=== PATIENT | female | born 1945 | race Caucasian/White ===

== ENCOUNTER 2022-11-09 09:00 | Outpatient (NON) | payer MEDICARE, SELFPAY | END 2022-11-09 09:01 | disposition home or self-care (01) | PROVIDERS: PCP Family Medicine; Visit Provider Internal Medicine Gastroenterology | DX: K21.9 Gastro-esophageal reflux disease without esophagitis (principal) | CPT/HCPCS: 88305 ==

== ENCOUNTER 2022-11-09 10:46 | Day surgery (SDC) | payer MEDICARE, SELFPAY ==
[2022-10-19 07:57] VITALS: BMI 28.0
[2022-10-19 13:02] VITALS: BMI 28.0
--- NOTE | 2022-11-06 16:25 | PM.HPGS ---
History of Present Illness History of Present Illness Consent: Risks, benefits, and alternatives have been discussed and questions answered. Patient agrees to proceed with procedure. Chief complaint: Dysphagia and Gerd Narrative: Mariana Gutiérrez is a 77 year old female With a history of mid-esophagea diverticulum, constipation, irritable bowel syndrome and sleep apnea.? She states she will have intermittent dysphagia mid chest this comes When she has solids.? She had an episode few weeks ago in which it lasted 1 hour and was very painful and till the food eventually moved.? This will happen 3-4 times throughout the month. her primary symptom however is that she belches constantly. She states that almost everything she eats causes indigestion meaning sour stomach and belching. She does have a CPAP machine.? She does report uncontrolled heartburn despite being on pantoprazole once per day and Pepcid twice per day along with frequent belching-previously on omeprazole with no control of GERD.? She denies any nausea, vomiting, hematemesis.? She has chronic constipation and takes Senokot laxatives daily to facilitate a bowel movement.?? Review of Systems Review of Systems: All systems reviewed & are unremarkable except as noted in HPI and below PMFSH Past Medical History Medical History Chronic constipation Colon cancer screening Dysphagia GERD (gastroesophageal reflux disease) History of hemorrhoids HLD (hyperlipidemia) Hypertension Melanosis coli Sleep apnea Social History Social History Smoking status: Never smoker Alcohol intake: never Substance use: never Substance use type: does not use Living arrangements: with family Spiritual care concerns: No Meds Home Medications and Allergies Home Medications Medication Instructions Recorded Confirmed Type benazepril 20 mg tablet 20 mg PO DAILY #90 tabs 04/04/19 11/09/22 Rx ascorbate calcium (vitamin C) 500 500 mg PO DAILY 10/15/22 11/09/22 History mg tablet aspirin 81 mg tablet,delayed 81 mg PO DAILY 10/15/22 11/09/22 History release (Adult Aspirin Regimen) atorvastatin 40 mg tablet 40 mg PO DAILY 10/15/22 11/09/22 History cetirizine 10 mg disintegrating 10 mg PO DAILY 10/15/22 11/09/22 History tablet (Children's Zyrtec Allergy) dexlansoprazole 60 mg 60 mg PO DAILY #30 caps 10/15/22 11/09/22 Rx capsule,biphase delayed release (Dexilant) fluticasone propionate 50 1 spray intranasal DAILY 10/15/22 11/09/22 History mcg/actuation nasal spray,suspension (Allergy Relief (fluticasone)) gabapentin 300 mg capsule 300 mg PO BID 10/15/22 11/09/22 History acetaminophen 650 mg 650 mg PO Q8H PRN Mild Pain (Scale 10/19/22 11/09/22 History tablet,extended release Score 1-4) diltiazem HCl 240 mg 240 mg PO DAILY 10/19/22 11/09/22 History capsule,extended release 24 hr hydrochlorothiazide 25 mg tablet 25 mg PO DAILY 10/19/22 11/09/22 History montelukast 10 mg tablet 10 mg PO PRN PRN Allergy Symptoms 10/19/22 11/09/22 History Allergies Allergy/AdvReac Type Severity Reaction Status Date / Time adhesive tape Allergy Unknown Blister Verified 11/09/22 11:32 ketorolac Allergy Unknown Rash Verified 11/09/22 11:32 Exam Const: General: alert Orientation/consciousness: patient oriented x3 Resp: Auscultation: clear to auscultation bilaterally Cardio: Rhythm: regular rhythm GI: GI Palp: Yes Soft to palpation and No Tenderness to palpation present (GI) Neuro: General: patient oriented x3 Assessment and Plan Assessment and plan (1) Dysphagia: Qualifiers: Dysphagia type: esophageal phase Qualified Code(s): R13.19 - Other dysphagia Code(s): R13.10 - Dysphagia, unspecified Status: Acute Assessment and Plan: EGD with possible biopsy or dilatation or cautery.
--- NOTE | 2022-11-09 10:54 | P.PNAN_ITS ---
Anes - Initial Pre Proc Eval Procedure: Operation Date: 11/09/22 12:30 Proposed Procedures p Esophagogastroduodenoscopy - Param Diaz MD Date/Time: 11/09/22 10:54 Surgeon: Param Diaz MD Pre Op Diagnosis: Dysphagia and Gerd Patient Data Age: 77 Gender: F Height: 1.57 m Weight: 69.4 kg Allergies Allergy/AdvReac Type Severity Reaction Status Date / Time adhesive tape Allergy Unknown Blister Verified 11/09/22 11:32 ketorolac Allergy Unknown Rash Verified 11/09/22 11:32 Home Medications Medication Instructions Recorded Confirmed Type benazepril 20 mg tablet 20 mg PO DAILY #90 tabs 04/04/19 11/09/22 Rx ascorbate calcium (vitamin C) 500 500 mg PO DAILY 10/15/22 11/09/22 History mg tablet aspirin 81 mg tablet,delayed 81 mg PO DAILY 10/15/22 11/09/22 History release (Adult Aspirin Regimen) atorvastatin 40 mg tablet 40 mg PO DAILY 10/15/22 11/09/22 History cetirizine 10 mg disintegrating 10 mg PO DAILY 10/15/22 11/09/22 History tablet (Children's Zyrtec Allergy) dexlansoprazole 60 mg 60 mg PO DAILY #30 caps 10/15/22 11/09/22 Rx capsule,biphase delayed release (Dexilant) fluticasone propionate 50 1 spray intranasal DAILY 10/15/22 11/09/22 History mcg/actuation nasal spray,suspension (Allergy Relief (fluticasone)) gabapentin 300 mg capsule 300 mg PO BID 10/15/22 11/09/22 History acetaminophen 650 mg 650 mg PO Q8H PRN Mild Pain (Scale 10/19/22 11/09/22 History tablet,extended release Score 1-4) diltiazem HCl 240 mg 240 mg PO DAILY 10/19/22 11/09/22 History capsule,extended release 24 hr hydrochlorothiazide 25 mg tablet 25 mg PO DAILY 10/19/22 11/09/22 History montelukast 10 mg tablet 10 mg PO PRN PRN Allergy Symptoms 10/19/22 11/09/22 History Patient hx anesthesia problems: none Family hx anesthesia problems: none Results Review: All pre-operative results and documents have been reviewed as part of the pre- operative evaluation. PMFSH Past Medical History Medical History Chronic constipation Colon cancer screening Dysphagia GERD (gastroesophageal reflux disease) History of hemorrhoids HLD (hyperlipidemia) Hypertension Melanosis coli Sleep apnea Social History Social History Smoking status: Never smoker Alcohol intake: never Substance use: never Substance use type: does not use Living arrangements: with family Spiritual care concerns: No Anes - Eval Final PreProcedure Day of Procedure 11/09/22 10:54 Patient weight: overweight Heart: regular rate and rhythm Lungs: clear to auscultation and normal air movement Airway: Mallampati scale class II Neurological: alert and oriented Last oral intake: >/= 8 hours ASA classification: II Emergent: no Anesthetic plan: proceed Anesthesia type and monitoring: general GIVS Results Review: All pre-operative results and documents have been reviewed as part of the pre- operative evaluation. Informed Consent: The patient's anesthetic plan and its attendant risks and benefits were discussed with the patient/family/POA. Questions were solicited and answers provided to the satisfaction of the patient/family/POA.
[2022-11-09 11:31] VITALS: BP 151/86; PULSE 70; RESP 18; TEMP 36.8; O2SAT 100
[2022-11-09] MEDS: LACTATED RINGERS 1,000 ML 150 ML IV CONT (11:46)
[2022-11-09 12:55] VITALS: BP 112/70; PULSE 81; RESP 16; O2SAT 96
[2022-11-09 13:05] VITALS: BP 118/70; PULSE 77; RESP 20; O2SAT 98
[2022-11-09 13:15] VITALS: BP 134/82; PULSE 75; RESP 20; O2SAT 98
--- NOTE | 2022-11-09 14:46 | WPDANESPN ---
Anes - Prog Note Post-Op Date/Time: 11/09/22 14:46 Cardiovascular status: normal Respiratory status: normal Airway patency: baseline Mental status: baseline Post-Op hydration status: normal Vital Signs: Last Vital Signs Temp 36.8 C 11/09/22 11:31 Pulse 75 11/09/22 13:15 Resp 20 11/09/22 13:15 BP 134/82 11/09/22 13:15 Pulse Ox 98 11/09/22 13:15 O2 Del Method Room Air 11/09/22 13:15 Pain Score (VAS): 0 I/O: Intake & Output 11/08/22 11/09/22 11/09/22 23:59 07:59 15:59 Intake Total 600 Balance 600 Post-procedural complaints: none Patient Feedback: Patient satisfied with anesthetic care.
== END 2022-11-09 13:35 | disposition home or self-care (01) ==
PROVIDERS: PCP Family Medicine; Visit Provider Internal Medicine Gastroenterology
PROC: 0DJ08ZZ Inspection of Upper Intestinal Tract, Via Natural or Artificial Opening Endoscopic (ICD-10-PCS; CPT 43235; principal; 2022-11-09 12:30)
DX: K21.9 Gastro-esophageal reflux disease without esophagitis (principal)
CPT/HCPCS: 43239

== ENCOUNTER 2023-09-30 14:40 | Outpatient (CLI) | payer MEDICARE, SELFPAY ==
--- NOTE | ~2023-09-30 | XR_ITS ---
EXAMINATION: XR lumbar spine 2-3V, XR sacrum coccyx min 2V DATE: 09/30/2023 15:12 INDICATION: Low back pain TECHNIQUE: Line 1. Anteroposterior and lateral views of the lumbar spine, and cone-down lateral view of the lumbosacr al junction were obtained. 2. AP, cephalad angled AP and lateral views of the sacrum and coccyx were obtained. COMPARISON: Lumbar spine radiographs dated 07/08/2016 FINDINGS: Alignment is normal. Vertebral body heights are normal. Combined instrumented L3-L5 anterior and post erior spinal fusion with interbody bone graft cages at both levels and bilateral vertical kary and ped icle screw fixation. Moderate to severe disc height loss with vacuum phenomena at L5-S1. Mild disc he ight loss at L2-L3. Moderate disc height loss at T10-T11 and T11-T12 cholecystectomy clips in the rig ht upper quadrant. Sacrum and coccyx: Sacral arches are intact. No fractures identified. Mild bilateral hip and sacroiliac osteoarthritis. No erosions to suggest inflammatory sacroiliitis. IMPRESSION: 1. Combined instrumented L3-L5 anterior and posterior spinal fusion. 2. Moderate to severe lower thoracic and lumbosacral spondylosis with mild spondylosis of the interve hui upper lumbar spine. 3. Mild bilateral hip and sacroiliac osteoarthritis. Reviewed, dictated and finalized at location A. IMPRESSION: 1. Combined instrumented L3-L5 anterior and posterior spinal fusion. 2. Moderate to severe lower thoracic and lumbosacral spondylosis with mild spon dylosis of the intervening upper lumbar spine. 3. Mild bilateral hip and sacroiliac osteoarthritis.
== END 2023-09-30 14:41 ==
DX: M16.0 Bilateral primary osteoarthritis of hip (principal); M53.3 Sacrococcygeal disorders, not elsewhere classified; M47.894 Other spondylosis, thoracic region; M47.896 Other spondylosis, lumbar region
CPT/HCPCS: 72100; 72220

== ENCOUNTER 2023-10-19 09:25 | Outpatient (CLI) | payer MEDICARE, SELFPAY ==
--- NOTE | ~2023-10-19 | CT_ITS ---
CT lumbar spine wo con Ordering provider: Félix Ma History: 78 years Female with . Sacral Spondlyosis . Comparison: None. Technique: CT lumbar spine without contrast. Radiation reduction technique utilized. FINDINGS: VERTEBRAE: Normal height and alignment. No subluxation or visible acute fracture. Postoperative estevez es seen at L3, L4 and L5 with hardware and status post laminectomy.. DISC SPACES: Degenerative disc disease at the level of L5-S1. Facet joint disease seen at the same le juan. Disc spaces are seen at the levels of L3-L4, L4-L5. T12-L1: No stenosis. L1-L2: No stenosis. Mild diffuse disc bulge. L2-L3: No stenosis. diffuse disc bulge. Bilateral narrowing of the foramina with root compression. L3-L4: Artifacts cannot be properly evaluated. L4-L5: artifacts cannot be appropriately evaluated. L5-S1: No stenosis. Diffuse disc bulge with bilateral narrowing of the foramina. Right nerve root co mpression. PARASPINOUS SOFT TISSUES: Mild atheromatous disease of the abdominal aorta. Bilateral sacroiliitis. IMPRESSION: Multilevel degenerative disc disease. Postoperative changes at the levels L3, L4 and L5. Reviewed, dictated and finalized at location A.
== END 2023-10-19 09:26 | disposition home or self-care (01) ==
DX: M47.815 Spondylosis without myelopathy or radiculopathy, thoracolumbar region (principal); M51.36 Other intervertebral disc degeneration, lumbar region
CPT/HCPCS: 72131

== ENCOUNTER 2024-02-29 09:42 | Outpatient (CLI) | payer MEDICARE, SELFPAY ==
--- NOTE | ~2024-02-29 | XR_ITS ---
XR hip LT min 2V Ordering provider: Marta Vanessa MD History: . M25.551 - Pain in right hip, BILATERAL HIP, NO INJURY . Comparison: None. FINDINGS: BONES: No acute fracture or dislocation. HIP JOINT SPACES: Narrowing of the left hip joint. SACROILIAC JOINT SPACES/LUMBAR SPINE: The sacroiliac joint spaces are normal. Mild degenerative estevez es of the visualized lower lumbar spine. Postoperative changes in the lower spine. PUBIC SYMPHYSIS: Normal. SOFT TISSUES: Normal. IMPRESSION: No acute osseous abnormality pelvis and left hip. Moderate osteoarthritic changes of the left hip. Reviewed, dictated and finalized at location A.
--- NOTE | ~2024-02-29 | XR_ITS ---
3 VIEWS LUMBAR SPINE Ordering provider: Marta Vanessa MD History: . Z98.1 - Arthrodesis status, SURG 4 YRS AGO . Comparison: September 30, 2023 FINDINGS: VERTEBRAL BODIES: No visible fracture or subluxation. Postoperative changes with fixation at the leve l of L3, L4 and L5. DISK SPACES: Disc spacers are seen at the level of L3-L4 and L4-L5. Narrowing of the disc L5-S1. SOFT TISSUES: Normal. IMPRESSION: No acute osseous abnormality lumbar spine. Degenerative disc disease at the level of L5-S1. Postoperative changes in the lower lumbar area. Reviewed, dictated and finalized at location A.
--- NOTE | ~2024-02-29 | MR_ITS ---
EXAMINATION: MR lumbar spine wo con DATE: 02/29/2024 10:24 INDICATION: Arthrodesis status. TECHNIQUE: Magnetic resonance imaging (MRI) of the lumbar spine was performed without intravenous con trast. COMPARISON: Lumbar spine radiographs 02/29/24 FINDINGS: There is 4 mm anterolisthesis of L5 on S1. There is 3 mm retrolisthesis of L2 on L3. There are changes of anterior and posterior fusion procedures from L3 to L5 with interbody devices and pedi marybel screws. Vertebral body heights are normal. There is severely decreased disc height at T11-T12, mo derately decreased disc height at L2-L3, and severely decreased disc height at L5-S1. There are heavenly ectomies at L3 and L4 with 2.6 x 0.8 x 2.4 cm fluid collection in the surgical bed, likely a seroma. The distal spinal cord signal intensity is normal. The conus medullaris is at T12-L1. The following d isc levels are specifically discussed: L1-L2: The disc is bulging with superimposed central extrusion. There is moderate bilateral facet bessie nt osteoarthritis. There is mild bilateral neural foraminal stenosis. There is mild central canal urvashi nosis. L2-L3: The disc is bulging with superimposed left subarticular zone extrusion. There is severe bilate ral facet joint osteoarthritis. There is moderate bilateral neural foraminal stenosis. There is moder ate central canal stenosis. There is severe stenosis of left lateral recess. L3-L4: There is mild right facet joint hypertrophy. There is no neural foraminal stenosis. There is n o central canal stenosis. L4-L5: There is mild right facet joint hypertrophy. There is mild right neural foraminal stenosis. Th ere is no central canal stenosis. L5-S1: The disc is bulging and has an annular fissure. There is severe bilateral facet joint osteoart hritis. There is mild bilateral neural foraminal stenosis. There is no central canal stenosis. IMPRESSION: 1. Severe lumbar spondylosis. 2. Anterior and posterior fusion procedures from L3 to L5. Reviewed, dictated and finalized at location A.
--- NOTE | ~2024-02-29 | XR_ITS ---
XR hip RT min 2V Ordering provider: Marta Vanessa MD History: . M25.551 - Pain in right hip, POSTERIORLY . Comparison: None. FINDINGS: BONES: No acute fracture or dislocation. HIP JOINT SPACES: Narrowing of the joint space suggestive of moderate osteoarthritic changes. SACROILIAC JOINT SPACES/LUMBAR SPINE: The sacroiliac joint spaces are normal. Mild degenerative estevez es of the visualized lower lumbar spine. Postoperative changes in the lower spine. PUBIC SYMPHYSIS: Normal. SOFT TISSUES: Normal. IMPRESSION: No acute osseous abnormality pelvis and right hip. Reviewed, dictated and finalized at location A.
--- NOTE | ~2024-02-29 | XR_ITS ---
XR_[id number]_CR Ordering provider: Marta Vanessa MD History: . M25.561 - Pain in right knee, POSTERIOR PAIN, NO INJURY . Comparison: None. FINDINGS: BONES: No acute fracture or dislocation. JOINT SPACES: Normal. SOFT TISSUES: Normal. IMPRESSION: No acute osseous abnormality left knee. Reviewed, dictated and finalized at location A.
--- NOTE | ~2024-02-29 | XR_ITS ---
XR_[id number]_CR Ordering provider: Marta Vanessa MD History: . M25.561 - Pain in right knee, POSTERIORLY BILATERALLY . Comparison: None. FINDINGS: BONES: No acute fracture or dislocation. Possible sclerotic changes in the abdominal distal shaft of the femur. endosteal reaction is not excl uded. JOINT SPACES: Normal. SOFT TISSUES: Normal. IMPRESSION: No acute osseous abnormality right knee. Reviewed, dictated and finalized at location A.
== END 2024-02-29 09:43 | disposition home or self-care (01) ==
PROVIDERS: PCP Registered Nurse; Visit Provider Neurological Surgery
DX: M47.816 Spondylosis without myelopathy or radiculopathy, lumbar region (principal); M51.379 Other intervertebral disc degeneration, lumbosacral region without mention of lumbar back pain or lower extremity pain; M43.26 Fusion of spine, lumbar region; M25.561 Pain in right knee; M25.562 Pain in left knee; M25.551 Pain in right hip; M25.552 Pain in left hip
CPT/HCPCS: 72110; 72148; 73502; 73560

== ENCOUNTER 2024-04-19 15:28 | Outpatient (CLI) | payer MEDICARE, SELFPAY ==
--- NOTE | ~2024-04-19 | XR_ITS ---
XR knee RT 3V Ordering provider: Marta Vanessa MD History: . M25.561 - Pain in right knee. FALL X 1 DAY AGO . Comparison: None. FINDINGS: BONES: No acute fracture or dislocation. JOINT SPACES: Normal. SOFT TISSUES: Normal. IMPRESSION: No acute osseous abnormality right knee. Reviewed, dictated and finalized at location A. Y MAN
--- NOTE | ~2024-04-19 | XR_ITS ---
XR tibia fibula RT 2V Ordering provider: Marta Vanessa MD History: . M79.604 - Pain in right leg. FALL X 1 DAY AGO . Comparison: None. FINDINGS: BONES: No acute fracture or dislocation. JOINT SPACES: Normal. SOFT TISSUES: Normal. IMPRESSION: No acute osseous abnormality right leg. Reviewed, dictated and finalized at location A. [employer]ENTICE
== END 2024-04-19 15:29 | disposition home or self-care (01) ==
PROVIDERS: PCP Family Medicine; Visit Provider Neurological Surgery
DX: M25.561 Pain in right knee (principal); M79.604 Pain in right leg; W19.XXXA Unspecified fall, initial encounter
CPT/HCPCS: 73562; 73590

== ENCOUNTER 2024-07-10 14:04 | Outpatient (CLI) | payer MEDICARE, SELFPAY | END 2024-07-10 14:05 | disposition home or self-care (01) | LOC: ANHIMG 14:07 | PROVIDERS: PCP Family Medicine; Visit Provider Neurological Surgery | DX: M85.89 Other specified disorders of bone density and structure, multiple sites (principal); M81.0 Age-related osteoporosis without current pathological fracture | CPT/HCPCS: 77080 ==

== ENCOUNTER 2024-09-11 15:59 | Outpatient (CLI) | payer MEDICARE, SELFPAY ==
--- NOTE | ~2024-09-11 | CT_ITS ---
Noncontrast CT scan of the lumbar spine CLINICAL HISTORY: Spondylolisthesis TECHNIQUE: Axial noncontrast imaging of the lumbar spine was performed. Sagittal and coronal reformat marvin images were constructed. Dose reduction technique was used on this scan by utilizing automated ex posure control and iterative reconstruction technique. The dose-length product (DLP) was 661.80 mGy-c m. COMPARISON: 10/19/2023 FINDINGS: Stable posterior and interbody fusion from L3 through L5, with bilateral rods and transpedi cular screws present, as well as disc fusion devices at these levels. There has been significant wors ening of severe degenerative disc narrowing at L2-L3, with 3 mm retrolisthesis present at this level. Severe degenerative distended L5-S1 is unchanged. At L1-L2, there is minimal disc bulge and minimal facet arthropathy. No central canal stenosis or def inite neural foraminal narrowing. At L2-L3, there is severe degenerative disc narrowing. Disc bulge and facet arthropathy result in pro bable severe spinal canal stenosis/thecal sac compression. There is severe right neural foraminal bre rowing, and moderate to severe left neural foraminal narrowing. At L3-L4, there is no definite canal stenosis. There is posterior decompression. Neural foramina are preserved. At L4-L5, there is no definite canal stenosis. There is probable moderate bilateral neural foraminal narrowing. L5-S1, there is advanced degenerative disc narrowing with diffuse disc bulge and moderate facet arthr opathy. Probable moderate central canal stenosis. There is minimal neural foraminal narrowing bilater ally. Paravertebral soft tissues are unchanged. Impression: Severe degenerative disc narrowing at L2-L3, which is significantly worsened as compared to prior exa m, with 3 mm retrolisthesis at this level. Multifactorial probable severe spinal canal stenosis/thecal sac compression L2-L3 with bilateral neur al foraminal narrowing. Please see details above. Stable postoperative change from L3 through L5. Reviewed, dictated and finalized at location M. Impression: Severe degenerative disc narrowing at L2-L3, which is significantly worsened as compared to prior exam, with 3 mm retrolisthesis at this level. Multifactorial probable severe spinal canal stenosis/thecal sac compression L2- L3 with bilateral neural foraminal narrowing. Please see details above. Stable postoperative change from L3 through L5.
--- OUTSIDE RECORDS SUMMARY | 2024-09-11 16:30 | XMS_ITS | Continuity of Care Document ---
Author Organization [facility] Address [address] [place] [address] [place] [address] Phone Care Team Providers Care Supervisor Fine Grading Name Role Phone Issac Calhoun DO Unavailable Unavailable Advance Directives Directive Yes / No Effective Date File Name No Information Encounters Encounter Description Practice Location Reason(s) For Visit Diagnoses Date Provider Providers Copied on Encounter [facility], [address], [place], [place], [id number], [place] tel:[phone] [facility] No Information Unique Berry. [address] [facility], [place], [address], [place]. tel: [phone] Family History Family Member Type Diagnosis Age At Onset No Information Payers Payer name Insurance type Covered republican ID Authoriza tiruss(s) [facility] Commercial CI [id number] Social History Type Description Quantity Date Captured [...]
--- OUTSIDE RECORDS SUMMARY | 2024-09-11 16:30 | XMS_ITS | Clinical Summary ---
Author Organization [facility] Address [address] [place] [id number] Care Team Providers Care Echocardiologist Name Role Phone Octavio Crowley MD Primary Care Provider [phone]- [phone] Allergies Active Allergy Reactions Criticality Noted Date Comments Adhesive Rash Medium 12/25/2019 Ketorolac Hives,Swelling Medium Medications montelukast (SINGULAIR) 10 mg tablet take 1 tablet by oral route every day in the evening 0 0 12/12/19 15 Active dicyclomine (BENTYL) 10 mg capsule take 1 capsule by oral route 3 times every day 0 0 12/12/19 15 Active fluticasone (FLONASE) 50 mcg/actuation nasal spray Administer 1 spray into each nostril daily as needed Active cetirizine (ZyrTEC) 10 mg tablet Take 10 mg by mouth daily. Active dilTIAZem XR (CARDIZEM CD,DILACOR XR) 180 mg 24 hr capsule Take 180 mg by mouth daily. Active pantoprazole DR (PROTONIX) 40 mg EC tablet Take 40 mg by mouth daily. Active LUBRICANT EYE DROPS 0.25 % ophthalmic solution Administer 1 each into both eyes 2 (two) times a day 06/06/19 19 Active senna (SENOKOT) 8.6 mg tablet Take 6 tablets by mouth nightly 05/31/19 19 Active aspirin 81 mg enteric coated tablet Take 81 mg by mouth nightly Active hydroCHLOROthiazid e (HYDRODIURIL) 25 mg tablet Take 25 mg by mouth daily 02/03/20 20 Active benazepriL (LOTENSIN) 20 mg tablet Take 20 mg by mouth daily 02/03/20 Active atorvastatin (LIPITOR) 40 mg tablet Take 40 mg by mouth daily 02/03/20 Active cholecalciferol (VITAMIN D-3) 5,000 unit tablet Take 5,000 Units by mouth daily Active calcium carbonate-vitamin D3 500 mg(1,250mg) -400 unit chewable tablet Take 1 tablet by mouth 2 (two) times a day Active ZINC ACETATE ORAL Take 25 mg by mouth daily Active acetaminophen 500 mg capsuleIndications :Pain Take 2 capsules (1,000 mg total) by mouth every 8 (eight) hours 120 tablet 03/09/20 Active ondansetron ODT (ZOFRAN-ODT) 4 mg disintegrating tabletIndications: nausea and vomiting Take 1 tablet (4 mg total) by mouth every 6 (six) hours as needed for nausea or vomiting 50 tablet 03/09/20 Active senna-docusate (PERICOLACE) 8.6-50 mgIndications:cons tipation Take 1 tablet by mouth 2 (two) times a day 50 tablet 03/09/20 Active oxyCODONE (ROXICODONE) 5 mg immediate release tabletIndications: Pain Take 1 tablet (5 mg total) by mouth every 4 (four) hours as needed for pain 80 tablet 03/09/20 Active Additional Information Patient not taking.Reported on 05/29/2020 bisacodyl EC (Dulcolax, bisacodyl,) 5 mg EC tabletIndications: constipation Take 5 mg by mouth daily as needed for constipation. Indications: constipation Active ascorbic acid (VITAMIN C) 1,000 mg tabletIndications: Vitamin C Deficiency Take 1,000 mg by mouth daily. Indications: inadequate vitamin C Active polyethylene glycol (Miralax) 17 gram packetIndications: constipation Take 17 g by mouth daily. Indications: constipation Active diphenhydrAMINE-ac etaminophen (Acetaminophen PM) 25-500 mg tabletIndications: Pain Take 2 tablets by mouth nightly as needed for sleep. Indications: pain Active scopolamine 1 mg over 3 days patch 3 day scopolamine 1 mg over 3 days transdermal patch APPLY 1 PATCH TOPICALLY DIRECTED Active azelastine (ASTELIN) 137 mcg (0.1 %) nasal spray USE 1 SPRAY(S) IN EACH NOSTRIL TWICE DAILY 07/30/19 Active magnesium gluconate (MAGONATE) 27.5 mg magne- sium (500 mg) tabletIndications: hypomagnesemia Take 500 mg by mouth 2 (two) times a day Active diphenhydrAMINE (Unisom SleepGels) 50 mg capsule Take 50 mg by mouth every 6 (six) hours as needed for itching Active gabapentin (NEURONTIN) 300 mg capsule Take 1 capsule (300 mg total) by mouth nightly 90 capsule 1 01/25/20 Active Additional Information Patient taking differently: 600 mgoral Nightly, Reported on 02/20/2022 methylPREDNISolone (Medrol, Javier,) 4 mg Dosepack follow package directions 21 tablet 01/25/20 Active Additional Information Patient not taking.Reported on 02/28/2021 promethazine-pheny leph-codeine (PHENERGAN VC with CODEINE) 1.25-1-2 mg/mL syrup Promethazine VC-Codeine 6.25 mg-5 mg-10 mg/5 mL oral syrup Take 5 mL every 4-6 hours by oral route. 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 Mack 03/05/2020 Bilateral incomplete L5 radiculopathy 01/19/2020 Degenerative lumbar spinal stenosis 12/29/2019 Grade 1 degenerative spondylolisthesis at L3-4 0 12/29/2019 Anxiety 12/25/2019 Chronic rhinitis 12/25/2019 Radiotherapy follow-up 12/25/2019 Rectal bleeding 07/22/2018 Assessment & Plan (07/23/2018 4:22 PM CDT): The differential diagnosis includes internal hemorrhoids, diverticulosis, and less likely neoplasm. I currently do not have the last colonoscopy report which was done more than 7 years ago. Plan Colonoscopy is recommended and scheduled. The patient was informed about the risks, benefits and alternatives to colonoscopy. The risks including but not limited to perforation, bleeding, infection and anesthetic complications with discussed with the patient and the patient verbalized full understanding. Irritable bowel syndrome with constipation 07/22 Assessment & Plan (07/23/2018 4:32 PM CDT): Chronic. Continue Dicyclomine. Gastroesophageal reflux disease 07/22/2018 Assessment & Plan (07/23/2018 4:34 PM CDT): Intermittently symptomatic. Counseled about diet, lifestyle and eating habits. Continue pantoprazole. Painless rectal bleeding 07/14/2018 Acquired trigger finger 07/04/2018 Chronic bilateral low back pain with right-sided sciatica 07/04/2018 Obstructive sleep apnea syndrome 07/04/2018 Otalgia 07/04/2018 Hypertension 12/11/2014 Overview (08/13/2016): HBP Hypercholesterolemia 12/11/2014 Overview (08/13/2016): High cholesterol Arthritis 12/11/2014 Overview (08/13/2016): Arthritis Immunizations Immunization Administration Dates Next Due Influenza, Quadrivalent, Hig h Dose, Preservative Free, Intrr 03/06/2020 Surgical History Surgery Date Site/Laterality Comments CHOLECYSTECTOMY 05/10/2009 - 05/09/2010 EYE SURGERY 02/08/2016 - 03/09/2016 Bilateral December and Crystal COLONOSCOPY last colonoscopy 2011 HYSTERECTOMY HEMORRHOID SURGERY BREAST BIOPSY Bilateral TUBAL LIGATION DILATION AND CURETTAGE OF UTERUS Medical History Medical History Date Comments Hemorrhoids Cataract Hypertension Hyperlipidemia GERD (gastroesophageal reflux disease) Irritable bowel syndrome PONV (postoperative nausea and vomiting) Osteopenia Environmental and seasonal allergies Sleep apnea Diverticulosis Arthritis Low back pain Chronic pain disorder Family History Medical History Relation Name Comments Diabetes Father Hypertension Father Dementia Mother Breast cancer Sister Diabetes Sister Hypertension Sister Migraines Sister Relation Name Status Comments Father Mother Sister Other Social History Tobacco Use Types Packs/Day Years Used Date Smoking Tobacco: Never Smokeless Tobacco: Never Alcohol Use Standard Drinks/Week Comments No 0 (1 standard drink = 0.6 oz pur e alcohol) Social Connection and Isolat ion Panel [NHANES] Answer Date Recorded In a typical week, how many times do you talk on the phone with family, friends, or neighbors? Three times a week 03/06/2020 How often do you get togethe r with friends or relatives? Once a week 03/06/2020 How often do you attend chur ch or confucianist services? More than 4 times per year 03/06/2020 Do you belong to any clubs o r organizations such as mosque groups, unions, fraternal or athletic groups, or school groups? No 03/06/2020 How often do you attend meet ings of the clubs or organizations you belong to? Never 03/06/2020 Are you , , di vorced, , never , or living with a partner? 03/06/2020 Overall Financial Resource Strain (CARDIA) Answe r Date Recorded How hard is it for you to pa y for the very basics like food, housing, medical care, and heating? Not hard at all 03/06/2020 PHQ-2 Answer Date Recorded PHQ-2 Total Score (If total score is 3 or more points, staff should administer the PHQ-9) 1 06/03/2021 Hunger Vital Sign Answer Date Recorded Within the past 12 months, y ou worried that your food would run out before you got the money to buy more. Never true 03/06/20 20 Within the past 12 months, t he food you bought just didn't last and you didn't have money to get more. Never true 03/06/2020 PRAPARE - Transportation Answer Date Re corded In the past 12 months, has l ack of transportation kept you from medical appointments or from getting medications? No 02/08 In the past 12 months, has l ack of transportation kept you from meetings, work, or from getting things needed for daily living? 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 Gender Identity Not on file Sexual Orientation Not on file Obstetrics History Last Filed Vital Signs Vital Sign Reading Time Taken Comments Blood Pressure 170/102 02/20/2022 1:36 PM CDT Pulse 80 02/20/2022 1:36 PM CDT Temperature 36.6 C (97.8 F) 01/13/2022 10:14 AM CDT Respiratory Rate 16 02/20/2022 1:36 PM CDT Oxygen Saturation 100% 02/20/2022 1:36 PM CDT Inhaled Oxygen Concentration - - Weight 69.4 kg (153 lb) 02/28/2021 9:38 AM CDT Height 157.5 cm (5' 2.01 ) 02/28/2021 9:38 AM CD T Body Mass Index 27.98 02/28/2021 9:38 AM CDT Plan of Treatment Health Maintenance Due Date Last Done Comments Hepatitis C Screening 1945 Osteoporosis Screening-Bone Density Scan 1945 Hepatitis B Screening 1963 Zoster Vaccine (1 of 2) 1995 Well Visit 65+ 2010 Fall Risk Assessment 03/09/2021 03/09/2020 Depression Screening 06/03/2022 06/03/2021, 06/03/2021, 07/22/2018 Influenza Vaccine (Season Ended) 2025 03/06/2020, 02/27/2019, 02/11/2017, Additional history exists DTaP/Tdap/Td Vaccine (2 - Td or Tdap) 01/30/2025 01/30/2015 Colon Cancer Screening-CT Colonography Discontinued 07/26/2018 Colon Cancer Screening-Colonoscopy Discontinued 07/26/2018 Colon Cancer Screening-DNA Stool Discontinued 07/27/19 Colon Cancer Screening-FIT Discontinued 07/26/2018 Colon Cancer Screening-FOBT Discontinued 07/26/2018 Colon Cancer Screening-Sigmoidoscopy Discontinued 07/26/2018 Colorectal Cancer Screening Discontinued Pneumococcal vaccine 65+ Completed 021, 02/11/2017, 03/02/2013 Medical Devices Implanted Type Area Vault Clerk Device Identifier Shelf Expiration Date Model / Serial / Lot Medtronic SofPureflection [employer] Danek [id number] Infuse 14mm 23mm Absorbable Sponge Sterile Water Syringe Needle - [id number] Implanted:Qty: 1 on 03/05/2020 by Keith Mack MD at [facility] Spine Lumbar Medtronic Inc 01/07/2021 [id number] / / [id number] [employer] Janine Dp-1011 Duragen Plus 1x1in Patch Resorbable Suturable Cranial Dura Graft - [id number] Implanted:Qty: 1 on 03/05/2020 by Keith Mack MD at [facility] Spine Lumbar Integra Lifesciences Janine 09/06/2022 [id number]-[id number] / / [id number] Nuvasive Creative Spine Tech [id number] Modulus [id number] 10d Xl Cage Spinal Sterile Latex Free - [id number] Implanted:Qty: 1 on 03/05/2020 by Keith Mack MD at [facility] Spine Lumbar Nuvasive Inc 01/11/2024 [id number] / / [id number] Spinal Graft Tech [id number] [place] Putty Jar Graft 5cc Bone Demineralized Bone Matrix - [id number] - [id number] Implanted:Qty: 1 on 03/05/2020 by Keith Mack MD at [facility] Spine Lumbar Spinal Graft Tech 12/17/2022 [id number] / [id number] / Nuvasive Creative Spine Tech [id number] Modulus [id number] 10d Xl Cage Spinal Sterile Latex Free - [id number] Implanted:Qty: 1 on 03/05/2020 by Keith Mack MD at [facility] Spine Lumbar Nuvasive Inc 08/22/2024 [id number] / / [id number] K2m Llc [id number] [place] Spine Screw Set Crow - [id number] Implanted:Qty: 6 on 03/05/2020 by Keith Mack MD at [facility] Spine Lumbar [place] Spine [id number] / / K2m Llc [id number] [place] Od6.5 Mm L40 Mm Polyaxial Spine Screw Bone - [id number] Implanted:Qty: 2 on 03/05/2020 by Keith Mack MD at [facility] Spine Lumbar [place] Spine [id number] / / K2m Llc [id number] [place] Od6.5 Mm L45 Mm Polyaxial Spine Screw Bone - [id number] Implanted:Qty: 4 on 03/05/2020 by Keith Mack MD at [facility] Spine Lumbar [place] Spine [id number] / / K2m Llc [id number] Od5.5 Mm L65 Mm Contour Curved; Contour Charlie Spinal Crow - [id number] Implanted:Qty: 2 on 03/05/2020 by Keith Mack MD at [facility] Spine Lumbar [place] Spine [id number] / / Spinal Graft Tech [id number] [place] Putty Jar Graft 5cc Bone Demineralized Bone Matrix - [id number] - [id number] Implanted:Qty: 1 on 03/05/2020 by Keith Mack MD at [facility] Spine Lumbar Spinal Graft Tech 09/11/2022 [id number] / [id number] / Procedures Procedure Name Priority Date/Time Associated Diagnosis Comments COLONOSCOPY 07/26/2018 8:56 AM CDT from Last 3 Months or Most Recently Relevant to Health Maintenance Results * COLONOSCOPY (07/26/2018 8:56 AM CDT) Anatomical Region Laterality Modality Other Narrative Procedure Note Pippa Mei MD - 07/26/2018 8:56 AM CDT [facility] Endoscopy [facility] Patient Name: Mariana Gutiérrez Procedure Date: 07/26/2018 8:56 AM Date of : 1945 Admit Type: Outpatient Age: 73 Gender: Female Note Status: Finalized Attending MD: Pippa Mei M.D. Procedure Date: 07/26/2018 Procedure: Colonoscopy Indications: Hematochezia Providers: Pippa Mei M.D., JEFRY Travis (Anesthesia Staff), Fabiola Levine RN Referring MD: Alexei Frazier M.D. Medicines: Monitored Anesthesia Care Complications: No immediate complications. Estimated Blood Loss: Estimated blood loss was minimal. Procedure: Pre-Anesthesia Assessment: - Prior to the procedure, a History and Physical was performed, and patient medications and allergieswere reviewed. The patient is competent. The risks and benefits of the procedure and the sedation optionsand risks were discussed with the patient. All questions were answered and informed consent was obtained. Patient identification and proposed procedure were verified by the physician, the nurse and the residential real estate appraiser in the procedure room. Mental Status Examination: alert and oriented. Airway Examination: normal oropharyngeal airway and neck mobility. Respiratory Examination: clear to auscultation. CV Examination: normal. Prophylactic Antibiotics: The patient does not require prophylactic antibiotics. Prior Anticoagulants: The patient has taken noprevious anticoagulant or antiplatelet agents. ASA Grade Assessment: III - A patient with severe systemic disease. After reviewing the risks and benefits, the patient was deemed in satisfactory condition toundergo the procedure. The anesthesia plan was to usemonitored anesthesia care (MAC). Immediately prior to administration of medications, the patient was re-assessed for adequacy to receive sedatives. The heart rate, respiratory rate, oxygen saturations,blood pressure, adequacy of pulmonary ventilation, and response to care were monitored throughout the procedure. The physical status of the patient was re-assessed after the procedure. - The risks and benefits of the procedure and the sedation options and risks were discussed with the patient. All questions were answered and informed consent was obtained. After I obtained informed consent, the scope waspassed under direct vision. Throughout the procedure, the patient's blood pressure, pulse, and oxygensaturations were monitored continuously. The scope was passedunder direct vision. The Colonoscope CF-Q180 AL [id number] introduced through the anus and advanced to the the cecum, identified by appendiceal orifice andileocecal valve. The colonoscopy was performed without difficulty. The patient tolerated the procedurewell. The quality of the bowel preparation was adequate.The bowel preparation used was SUPREP. Findings: A diffuse area of mild melanosis was found in the transverse colon,in the ascending colon and in the cecum. Biopsies were taken with a cold forceps for histology. Estimated blood loss was minimal. A few small-mouthed diverticula were found in the sigmoid colon andin the descending colon. Non-bleeding internal hemorrhoids were found during retroflexion. The hemorrhoids were moderate. Impression: - Melanosis in the colon. Biopsied. - Diverticulosis in the sigmoid colon and in the descending colon. - Non-bleeding internal hemorrhoids. Recommendation: - Await pathology results. - Preparation H suppository: Insert rectally as necessary. - Colace capsule(s) orally 100 mg daily. - Repeat colonoscopy is not recommended. Procedure Code(s): --- Professional --- 87369, Colonoscopy, flexible; with biopsy, single or multiple Diagnosis Code(s): --- Professional --- K63.89, Other specified diseases of intestine K64.8, Other hemorrhoids K92.1, Melena (includes Hematochezia) K57.30, Diverticulosis of large intestine without perforation or abscess without bleeding CPT copyright 2017 [employer]. All rights reserved. The codes documented in this report are preliminary and upon aquatic ecologist reviewmay be revised to meet current compliance requirements. Electronically signed by Pippa Mei M.D. Pippa Mei M.D. 07/26/2018 9:30:08 AM Number of Addenda: 0 Note Initiated On: 07/26/2018 8:56 AM Pippa Mei MD ENDOSCOPY PROCEDURES Fi nal Result from Last 3 Months or Most Recently Relevant to Health Maintenance Insurance [facility] REF [facility] Address: [address] [address] [place] [address] [facility] HMO REF [facility] Address: [address] [address] [place] [id number] [facility] HMO REF [facility] Address: [address] [address] [place] [id number] [facility] MDCR HMO REF [facility] Address: [facility] [address] [place] [address] Advance Directives For more information, please contact: [phone] * Full Code (Latest Code Status on File) Date Activated Date Inactivated Comments 03/05/2020 4:36 PM 03/10/2020 1:46 AM Care Teams Echocardiologist Relationship Specialty Start Date End Date Octavio Crowley MD [facility] [place] [address] PCP - General Family Medicine 12/14/19
--- OUTSIDE RECORDS SUMMARY | 2024-09-11 16:30 | XMS_ITS | Referral Summary ---
Author Organization [facility] Address [address] [place] [id number] Care Team Providers Care Project Portfolio Analyst Name Role Phone Octavio Crowley MD Primary Care Provider +1- [phone] Allergies Active Allergy Reactions Criticality Noted Date [...] Hig h Dose, Preservative Free, Intrr 03/06/2020 Social History Tobacco Use Types Packs/Day Years [...] 03/06/2020 How often do you attend chur or sabianist services? 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 Gender Identity Not on file Sexual Orientation Not on file Last Filed Vital Signs Vital Sign Reading [...] 02/28/2021 9:38 AM CDT Plan of Treatment Not on file Medical Devices Implanted Type Area Board Certified Family Physician Device Identifier Shelf Expiration Date Model / Serial / Lot Medtronic Sofofelia [place] [id number] Infuse 14mm 23mm Absorbable Sponge Sterile Water Syringe Needle - [id number] Implanted:Qty: 1 on 03/05/2020 by Keith Mack MD at [facility] Spine Lumbar Medtronic Inc 01/07/2021 [id number] / / [id number] LockPath, Inc.a bigtincanciences Janine Dp-1011 Duragen Plus 1x1in Patch Resorbable Suturable Cranial Dura Graft - [id number] Implanted:Qty: 1 on 03/05/2020 by Keith Mack MD at [facility] Spine Lumbar Integra Lifesciences Janine 09/06/2022 DP-1011 / / [id number] Nuvasive Creative Spine Tech [id number] Modulus [id number] 10d Xl Cage Spinal Sterile Latex Free - [id number] Implanted:Qty: 1 on 03/05/2020 by Keith Mack MD at [facility] Spine Lumbar Nuvasive Inc 01/11/2024 [id number] / / [id number] Spinal Graft Tech [id number] [place] Putty Jar Graft 5cc Bone Demineralized Bone Matrix - [id number] - [id number] Implanted:Qty: 1 on 03/05/2020 by Keith Mack MD at [facility] Spine Lumbar Spinal Graft Tech 12/17/2022 [id number] / [id number] / Nuvasive Creative Spine Tech [id number] Modulus [id number] 10d Xl Cage Spinal Sterile Latex Free - [id number] Implanted:Qty: 1 on 03/05/2020 by Keith Mack MD at [facility] Spine Lumbar Nuvasive Inc 08/22/2024 [id number] / / [id number] K2m Llc [id number] [place] Spine Screw Set Crow - [id number] Implanted:Qty: 6 on 03/05/2020 by Keith Mack MD at [facility] Spine Lumbar Romel Spine [id number] / / K2m Llc [id number] [place] Od6.5 Mm L40 Mm Polyaxial Spine Screw Bone - [id number] Implanted:Qty: 2 on 03/05/2020 by Keith Mack MD at [facility] Spine Lumbar Romel Spine [id number] / / K2m Llc [id number] [place] Od6.5 Mm L45 Mm Polyaxial Spine Screw Bone - [id number] Implanted:Qty: 4 on 03/05/2020 by Keith Mack MD at [facility] Spine Lumbar Romel Spine [id number] / / K2m Llc [id number] Od5.5 Mm L65 Mm Contour Curved; Contour Charlie Spinal Crow - [id number] Implanted:Qty: 2 on 03/05/2020 by Keith Mack MD at [facility] Spine Lumbar Romel Spine [id number] / / Spinal Graft Tech [id number] [place] Putty Jar Graft 5cc Bone Demineralized Bone Matrix - [id number] - [id number] Implanted:Qty: 1 on 03/05/2020 by Keith Mack MD at [facility] Spine Lumbar Spinal Graft Tech 09/11/2022 [id number] / [id number] / Procedures Procedure Name Priority Date/Time Associated Diagnosis Comments COLONOSCOPY 07/26/2018 8:56 AM CDT from Last 3 Months or Most Recently Relevant to Health Maintenance Results * COLONOSCOPY (07/26/2018 8:56 AM CDT) Anatomical Region Laterality Modality Other Narrative Procedure Note Pippa Mei MD - 07/26/2018 8:56 AM CDT [facility] Endoscopy Lab Patient Name: Mariana Gutiérrez [...] by the physician, the nurse and the scientific investigator in the procedure room. Mental Status Examination: [...] passedunder direct vision. The Colonoscope CF-Q180 AL [id number] introduced through the anus and advanced to [...] not recommended. Procedure Code(s): --- Professional --- 51642, Colonoscopy, flexible; with biopsy, single or multiple Diagnosis Code(s): --- Professional --- K63.89, Other specified diseases of intestine K64.8, Other hemorrhoids K92.1, Melena (includes Hematochezia) K57.30, Diverticulosis of large intestine without perforation or abscess without bleeding CPT copyright 2017 [place] [employer]. All rights reserved. The codes documented in this report are preliminary and upon remote inpatient coder reviewmay be revised to meet current compliance requirements. Electronically signed by Pippa Mei M.D. Pippa Mei M.D. 07/26/2018 9:30:08 AM Number of Addenda: 0 Note Initiated On: 07/26/2018 8:56 AM Pippa Mei MD ENDOSCOPY PROCEDURES Fi nal Result from Last 3 Months or Most Recently Relevant to Health Maintenance [facility] HMO REF [id number] [place] [address] HMO REF [facility] MDCR HMO REF Advance Directives For more information, please contact: [phone] * Full Code (Latest Code Status on File) Date Activated Date Inactivated Comments 03/05/2020 4:36 PM 03/10/2020 1:46 AM Care Teams Project Portfolio Analyst Relationship Specialty Start Date End Date Octavio Crowley MD [address] [place] [address] [place] [address] PCP - General Family Medicine 12/14/19
--- OUTSIDE RECORDS SUMMARY | 2024-09-11 16:30 | XMS_ITS | CONTINUITY OF CARE DOCUMENT ---
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 Name Role Phone Claude Daniel MD Unavailable [phone] SANJIV ISAACS Unavailable PROBLEMS Condition Status Date Provider Notes Essential hypertension active Claude Daniel MD Dyslipidemia active Claude Daniel MD Sleep apnea active Claude Daniel MD Chest pain active lCaude Daniel MD Cardiology examination active Claude Daniel MD Localized swelling on legs, bilateral active 8 Claude Daniel MD ENCOUNTERS Date Type Provider Location Encounter Diag nosis - In-person encounter Office Visit Claude Daniel MD [facility] Essential hypertensionDyslipidemiaSleep apneaChest painCardiology examinationLocalized swelling on legs, bilateral VITAL SIGNS Date Observation Value Provider Body Mass Index (Ratio) 27.98 kg/m2 Willian Daniel MD blood pressure, diastolic 95 mm[Hg] Sol nkLogangelica blood pressure, systolic 170 mm[Hg] Lupe kLogic pulse rate 79 /min Dante [place] y blood pressure, cuff size regular Ja rret blood pressure, diastolic 95 mm[Hg] Ja rret blood pressure, systolic 170 mm[Hg] Jar ret height E&M 62 [in_i] Dante y respiratory rate E&M 12 /min oxygen saturation, oximetry 98 % weight E&M 153 [lb_av] Dante y ALLERGIES Allergy Name Onset Date Reaction Criticality Status TORADOL Low Criticality active HISTORY OF MEDICATION USE Medication Status Instructions Dates Provider Indications Com ments metoprolol tartrate 100 mg tablet active Take one tab the evening before ct and one tablet the am of CT, an hour and a half before. 1 Dona Orozco RN dexlansoprazole 60 mg capsule,biphase delayed releas active TAKE 1 BY MOUTH ONCE DAILY Claude Daniel MD ibuprofen 600 mg tablet active TAKE 1 TABLET BY MOUTH THREE TIMES DAILY WITH MEALS Claude Daniel MD sucralfate 1 gram tablet active TAKE 1 TABLET BY MOUTH 4 TIMES DAILY BEFORE MEAL(S) Claude Daniel MD SOCIAL HISTORY Date Observation Value Provider smoking status Never smoker INSURANCE PROVIDERS Payer name Policy type / Coverage type [employer] party ID AARP MEDICARE ADVANTAGE HMO-POS HMO [id number] ADVANCE DIRECTIVES Name Date DISCUSSED - NO DECISION MADE TREATMENT PLAN Date Name Performer [id number],NClaued MD [id number],S, Claude griffin MD [id number],S, Claude griffin MD [id number],W, Claude griffin MD [id number],NClaude MD Cardiology Claude Daniel MD Cardiology Claude Daniel MD Cardiology Claude Daniel MD Cardiology Claude Daniel MD Cardiology Claude Daniel MD Date Name PROBNP, N TERMINAL Venous Doppler Bilat eral LE - Reflux CT Angio Coronaries LIPID PANEL Lipoprotein (a) CBC (INCLUDES DIFF/P LT) BASIC METABOLIC PANE L W/EGFR Complete Echo HISTORY OF PROCEDURES Procedure Date Procedure Name Provider Procedure Notes S tatus EKG Claude Daniel MD complete d
--- OUTSIDE RECORDS SUMMARY | 2024-09-11 16:31 | XMS_ITS | Data Portability ---
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 Plan of Treatment Reminders Order Date Submit Date Provider Last Modified By Organization Details Last Modified Time Details Appointments None recorded. Lab biopsy, skin - Left forearm lesion 2022 023 [facility] ([facility]), [address] [place], [address], 3 10:47:24 Referral cardiologis t referral - 77 y/o chest pains , as irritable bowel and bloating with constipatio n. Has costal chondritis . But Please evaluate her and treat prn . Thank you . Has a longstandin g heart murmur. 2022 023 [email or web address] 3 [place], [address] [address] , [facility] [address], [address], 3 09:26:39 gastroenter ologist referral 2022 023 NELLA Diaz MD, [address] [facility] [address], [facility] [address], [place], [address], 3 16:29:57 Procedures None recorded. Surgeries None recorded. Imaging None recorded. Medication Orders ciprofloxac in 500 mg tablet 2023 024 [facility] 1761, [address] [place] [address], [address], 4 09:19:44 benazepril 40 mg tablet 2023 024 [facility] [address], [address] [place] [address], [address], 4 09:16:41 ciprofloxac in 500 mg tablet 2022 023 [facility] [address], [address] [place] [address], [address], 3 12:56:05 ibuprofen 600 mg tablet 2022 023 [facility] 176, [address] [place] [address], [address], 3 10:40:29 sucralfate 1 gram tablet 2022 023 [facility] [address], [address] [place] [address], [address], 3 10:14:18 ibuprofen 600 mg tablet 2022 023 [facility] [address], [address] [place] [address], [address], 3 10:17:44 Patient TargetsNo targets recorded. Patient Instructions Encounter Date Encounter Id Patient Instructions Last Modified By Organization Details Last Modified Time 12/04/2022 [id number] reinforced her instinct to call the paramedics . Take an extra baby aspirin anytime when chest pain occurs . [email or web address] Not available 12/06/2022 10:24:30 Reason for Referral Instructional Consultant Referral for Esophageal dysphagia Referring Physician: Octavio Crowley, Family Medicine, Encounter Date: 10/01/2022 Health And Social Care Teacher Referral for Ch est pain 77 y/o chest pains , as irritable bowel and bloating with constipation. Has costal chondritis . But Please evaluate her and treat prn . Thank you . Has a longstanding heart murmur. Referring Physician: Justin Luong, Family Medicine, Encounter Date: 12/04/2022 Results Created Date Observation Date Name Description Value Unit Range Abnormal Flag Note LastModifiedBy Organization Detail LastModifiedTime 11/03/19 23 MAMMO , scree hui, digit al, bilat eral [facility] [address] [facility] [address], [place] [address] Patishahnaz t Name: SHELLY OLIVAREZ Griselda Laguna Access ion #: [id number] Sex: F : 1944 8 Locati on: RA2 Attend ing Physic iggy: ELKHAT IB, RUNDA Orderi ng Physic iggy: ELKHAT IB, RUNDA Exam Date: 023 8:37 AM Exam Name: DIGITA L SULY BILAT SCREEN Admitt ing Diagno sis(es ): RADIOL OGY REPORT - FINAL EXAM: MG DIGITA L SULY BILAT SCREEN HISTOR Y: Screen ing mammog geoffrey COMPAR AMI: 2021, 2019, 2018 TECHNI QUE: Bilate ral CC and MLO views of the breast s were perfor med. Digita l Mammog carlos images were obtain ed. CAD (compu ter assist ed detect ion) was utiliz ed. FINDIN GS: The breast s are extrem mony dense, which lowers the sensit ivity of mammog carlos. No masses , asymme tries, suspic ious calcif icatio ns, or gadiel ectura l distor tion are seen. Page 1 of 2 [facility] Name: SHELLY OLIVAREZ Access ion #: [id number] Sex: F : 1944 8 Exam Date: 023 8:37 AM Exam Name: DIGITA L SULY BILAT SCREEN Admitt ing Diagno sis(es ): IMPRES CALIXTO: BIRADS 1: Assess ment comple te. Negati ve. Recomm end annual screen ing mammog carlos. Accord ing to the [employer], yearly mammog edy are recomm ended starti ng at age 40 and contin uing as long as the woman is in good health . Clinic al Breast Exam should be part of the period ic health exam-a bout every 3 years for women in their 20s and 30s and every year for women 40 and over. Breast self-e xam is an option for women in their 20s. Any breast change noted on the breast self-e xam she would be [facility] ed [facility] A negati ve mammog carlos report should not discou rage follow -up or biopsy of a clinic ally signif icant findin g and/or abnorm ality. Dense breast tissue may obscur e small neopla sms. This tejal ga has been entere d into a mammog carlos remind er system with a target date for her next mammog geoffrey. Create d and electr onical ly signed by: Jeremiah brannon MD Signed Date: 1:40 PM (CT) Dictat ed by: Jeremiah brannon MD DD: 1:40 PM (CT) DT: 023 1:40 PM (CT) Page 2 of [address] (Imaging) [address] [place], [address], 11/02/2022 15:16:51 11/03/19 23 11/02/2022 MAMMO , scree hui, bilat eral No observ ation record ed. [address] [place], [address], 11/02/2022 15:16:51 06/07/19 24 06/07/2023 XR, hand, 3 or more view No observ ation record ed. [facility] [address] [place], [address], 06/08/2023 12:19:19 Result Notes None recorded. Problems Name Problem SNOMED Code Status Onset Date Resolution Date Notes Provider Name and Address Organization Details Recorded Time Irritable bowel syndrome 66711601 Active 2018 Not Available [facility] 3 06:44:40 Acquired trigger finger 6013149 Active 2018 Not Available [facility] 3 06:44:40 Acute sinusitis 36615915 Completed Not Available [facility] 3 05:59:02 Otalgia 79421523 Active 2018 Not Available [facility] 3 06:44:40 Mammograph y abnormal 029315500 Completed Not Available [facility] 3 05:59:02 Radiothera py follow-up 962435085 Active Not Available [facility] 3 06:44:40 Prolapsed lumbar interverte bral disc 070407425 Active 2021 Not Available [facility] 3 06:44:40 Abdominal pain 82427778 Completed Not Available [facility] 3 05:59:02 Gastroesop hageal reflux disease 842805281 Active Not Available [facility] 3 06:44:40 Chronic constipati on 340908284 Active 2018 Not Available [facility] 3 06:44:40 Low back pain 398944915 Active 2018 Not Available [facility] 3 06:44:41 Painless rectal bleeding 971610329 Active 2018 Not Available [facility] 3 06:44:41 Anxiety 42074384 Active Not Available [facility] 3 06:44:41 Hyperlipid emia 07450478 Active Not Available [facility] 3 06:44:41 Essential hypertensi on 34719233 Active Not Available [facility] 3 06:44:41 Obstructiv e sleep apnea syndrome 48294691 Active 2018 Not Available [facility] 3 06:44:41 Epigastric pain 41819149 Completed Not Available [facility] 3 05:59:03 Chronic rhinitis 69262386 Active Not Available [facility] 3 06:44:41 Skin lesion 17121173 Completed Octavio Crowlye MD [address], [place], [address] , [employer] (app) 3 10:11:14 Bilateral cataracts 70530520 Completed 201807/04/2018 Not Available [facility] 3 05:59:03 Esophageal dysphagia 29841027 Active 2022 Not Available [facility] 3 06:44:41 Chronic low back pain 021048758 Active 2022 Not Available [facility] 3 06:44:40 Constipati on 23868866 Active 2022 Not Available [facility] 3 06:44:40 Costal chondritis 13464023 Active 2022 Not Available [facility] 3 06:44:41 Chest pain 37882250 Active 2022 Not Available [facility] 3 06:44:41 Skin lesion 59269739 Active 2022 Not Available [facility] 3 06:44:41 Squamous cell carcinoma of skin 602660943 Active 2022 Not Available [facility] 3 06:44:40 Sinusitis 58278256 Active 2022 KIER[facility] [place] [address], [place], [address] , [employer] (app) 3 12:54:53 Administra tion of influenza vaccine Active 2022 KIERA [place] [address], [place], [address] , [employer] 3 12:58:59 Problem Notes None recorded. Procedures Surgical History Date Name Laterality Status Provider Name and Address Organization Details Recorded Time 01/30/20 23 Shave Biopsy completed Octavio Crowley MD [address], [place], [address], [employer] (app) 01/29/2023 18:25:55 Back Surgeries completed Not Available [facility] 07/08/2022 05:53:55 Breast Biopsy completed Not Available [facility] 07/08/2022 05:53:55 Cataract Surgery completed Not Available [facility] 07/08/2022 05:53:55 Cholecystectomy completed Not Available [facility] 07/08/2022 05:53:55 Hysterectomy completed Not Available [facility] 07/08/2022 05:53:55 Hemorrhoidectomy completed Not Available [facility] 07/08/2022 05:53:55 procedure on skin completed Lakshmi Longoria MA [place] - [place] [facility] 05/14/2023 09:05:10 Imaging Results Imaging Date Name Status LastModified by Organiz ation Details LastModified Time 11/02/2022 MAMMO, screening, digital, bilateral completed [address] (Imaging) [address] [place], [address], 11/02/2022 15:16:51 11/02/2022 MAMMO, screening, bilateral completed [email or web address] [address] [place], [address], 11/02/2022 15:16:51 06/07/2023 XR, hand, 3 or more view completed [email or web address] [facility] [address] [place], [address], 06/08/2023 12:19:19 Procedure Notes None recorded. Medical Equipment None Reported. Allergies Allergen ID Allergen Name Allergen Category Reaction Reaction Severity Criticality Documentation Date Start Date Code Code System Note Provider Name and Address Organization Details Recorded Time 96660 Toradol medicatio n Not available Not available Not available 07/08/2022 66844 RxNorm Not Available [facility] 06:05:25 67017 adhesive environme nt,medica tion Not available Not available Not available 07/08/2022 97560 UNK Not Available [facility] 06:05:25 Medications Name Sig Start Date Stop Date Status Note LastModified by Organization Details LastModified Time celecoxib 200 mg capsule Take 1 capsule twice a day by oral route for 30 days. 02/04 completed Not Available Not Available Not Available cyclobenza rita 10 mg tablet Take 1 tablet every day by oral route at bedtime. active Not Available Not Available No t Available amoxicilli n 500 mg capsule Take 1 capsule 3 times a day by oral route for 10 days. active Not Available Not Available No t Available atorvastat in 40 mg tablet TAKE 1 TABLET BY MOUTH DAILY active Not Available Not Available No t Available doxycyclin e hyclate 100 mg capsule TAKE 1 CAPSULE BY MOUTH TWICE DAILY FOR 14 DAYS active Not Available Not Available No t Available atorvastat in 20 mg tablet 07/05 completed Not Available Not Available Not Available Pneumovax- 23 25 mcg/0.5 mL injection solution active Not Available Not Available Not Available azithromyc in 250 mg tablet TAKE 2 TABLETS (500 MG) BY ORAL ROUTE ONCE DAILY FOR 1 DAY THEN 1 TABLET (250 MG) BY ORAL ROUTE ONCE DAILY FOR 4 DAYS active Not Available Not Available No t Available pravastati n 40 mg tablet TAKE ONE TABLET DAILY 07/04 completed Not Available Not Available Not Available metoprolol tartrate 100 mg tablet TAKE ONE TABLET BY MOUTH THE EVENING BEFORE CT AND ONE TABLET THE MORNING OF CT, AN HOUR AND A HALF BEFORE active Not Available Not Available No t Available valacyclov ir 1 gram tablet TAKE 1 TABLET BY MOUTH EVERY 12 HOURS FOR 7 DAYS 10/30 completed Not Available Not Available Not Available hydrocodon e 5 mg-acetami nophen 325 mg tablet 01/02 completed Not Available Not Available Not Available diltiazem CD 240 mg capsule,ex tended release 24 hr TAKE 1 CAPSULE BY MOUTH ONCE DAILY active Not Available Not Available No t Available sucralfate 1 gram tablet TAKE 1 TABLET BY MOUTH 4 TIMES DAILY BEFORE MEAL(S) active Not Available Not Available No t Available Aspir-Low 81 mg tablet,del ayed release Take 1 tablet every day by oral route. 2019 active Not Available Not Available Not Avai lable ciprofloxa karma 500 mg tablet TAKE 1 TABLET BY MOUTH EVERY 12 HOURS active Not Available Not Available No t Available sulfametho xazole 800 mg-trimeth oprim 160 mg tablet Take 1 tablet every 12 hours by oral route for 5 days. 07/21 completed Not Available Not Available Not Available tramadol 50 mg tablet Take 1 tablet 3 times a day by oral route. active Not Available Not Available No t Available Promethazi ne VC-Codeine 6.25 mg-5 mg-10 mg/5 mL oral syrup Take 5 mL every 4-6 hours by oral route. active Not Available Not Available No t Available lorazepam 0.5 mg tablet Take 1 tablet as needed by oral route at bedtime. active Not Available Not Available No t Available amlodipine 10 mg tablet active Not Available Not Available Not Available pantoprazo le 40 mg tablet,del ayed release TAKE 1 TABLET BY MOUTH DAILY active Not Available Not Available No t Available lidocaine 5 % topical patch Apply by topical route for 30 days. 10/30 completed Not Available Not Available Not Available fluoxetine 10 mg capsule Take 1 capsule every day by oral route at bedtime. 07/04 completed Not Available Not Available Not Available gabapentin 300 mg capsule TAKE 2 CAPSULES BY MOUTH AT BEDTIME active Not Available Not Available No t Available omeprazole 20 mg capsule,de layed release TAKE 1 CAPSULE DAILY 07/04 completed Not Available Not Available Not Available benazepril 20 mg tablet TAKE 1 TABLET BY MOUTH DAILY 2023 active Not Available Not Available Not Avai lable montelukas t 10 mg tablet TAKE 1 TABLET BY MOUTH DAILY active Not Available Not Available No t Available hydrochlor othiazide 25 mg tablet TAKE 1 TABLET BY MOUTH DAILY active Not Available Not Available No t Available azelastine 137 mcg (0.1 %) nasal spray USE 1 SPRAY(S) IN EACH NOSTRIL TWICE DAILY 10/30 completed Not Available Not Available Not Available ibuprofen 600 mg tablet Take 1 tablet 3 times a day by oral route with meals for 30 days. 2022 active Not Available Not Available Not Avai lable scopolamin e 1 mg over 3 days transderma l patch APPLY 1 PATCH TOPICALLY DIRECTED active Not Available Not Available No t Available benazepril 40 mg tablet Take 1 tablet every day by oral route in the morning for 30 days. 2023 active Not Available Not Available Not Avai lable methylpred nisolone 4 mg tablets in a dose pack TAKE BY MOUTH DIRECTED ON INSIDE OF PACKAGE 02/04 completed Not Available Not Available Not Available ondansetro n 4 mg disintegra ting tablet DISSOLVE 1 TABLET IN MOUTH EVERY 6 HOURS NEEDED FOR NAUSEA FOR VOMITING active Not Available Not Available No t Available diltiazem 60 mg tablet Take 2 tablets every day by oral route. 07/05 completed Not Available Not Available Not Available fluticason e propionate 50 mcg/actuat ion nasal spray,susp ension Two sprays per nostril daily active Not Available Not Available No t Available dicyclomin e 10 mg capsule TAKE 1 CAPSULE BY MOUTH EVERY 6 HOURS NEEDED active Not Available Not Available No t Available Cartia XT 180 mg capsule,ex tended release TAKE 1 CAPSULE BY MOUTH DAILY 07/21 completed Not Available Not Available Not Available oxycodone 5 mg tablet TAKE 1 TABLET BY MOUTH EVERY 4 HOURS NEEDED FOR PAIN active Not Available Not Available No t Available ezetimibe 10 mg tablet Take 1 tablet every day by oral route. 07/05 completed Not Available Not Available Not Available Vigamox 0.5 % eye drops 07/04 completed Not Available Not Available Not Available nitrofuran toin monohydrat e/macrocry stals 100 mg capsule TAKE 1 CAPSULE BY MOUTH EVERY 12 HOURS 07/21 completed Not Available Not Available Not Available Boostrix Tdap 2.5 Lf unit-8 mcg-5 Lf/0.5 mL intramuscu lar suspension active Not Available Not Available N ot Available aspirin 09/08 completed Not Available Not Available Not Available Fish Oil 02/04 completed Not Available Not Available Not Available Glucosamin e 02/04 completed Not Available Not Available Not Available [place] 3 02/04 completed Not Available Not Available Not Available Sleep Aid (diphenhyd ramine) 2021 active Not Available Not Available Not Avai lable Calcium 600 + D(3) 07/29 completed Not Available Not Available Not Available Zostavax (PF) 19,400 unit/0.65 mL subcutaneo us suspension active Not Available Not Available N ot Available Durezol 0.05 % eye drops 07/04 completed Not Available Not Available Not Available dexlansopr azole 60 mg capsule,bi phase delayed release TAKE 1 BY MOUTH ONCE DAILY active Not Available Not Available No t Available Vitamin D3 125 mcg (5,000 unit) tablet Take by oral route. 2019 active Not Available Not Available Not Avai lable Suprep Bowel Prep Kit 17.5 gram-3.13 gram-1.6 gram oral solution 09/08 completed Not Available Not Available Not Available Aleve 220 mg capsule Take by oral route. 02/04 completed Not Available Not Available Not Available azelastine 137 mcg-flutic asone 50 mcg/spray nasal spray 10/01 completed Not Available Not Available Not Available Myrbetriq 50 mg tablet,ext ended release Take 1 tablet every day by oral route. 10/01 completed Not Available Not Available Not Available Ilevro 0.3 % eye drops,susp ension 07/04 completed Not Available Not Available Not Available Fluzone High-Dose 9298-9353 (PF) 180 mcg/0.5 mL intramuscu lar syringe active Not Available Not Available Not Available Fluzone High-Dose 2013- (PF) 180 mcg/0.5 mL intramuscu lar syringe active Not Available Not Available Not Available Flonase Allergy Relief 02/04 completed Not Available Not Available Not Available Fluzone High-Dose (PF) 180 mcg/0.5 mL intramuscu lar syringe active Not Available Not Available Not Available Fluzone High-Dose (PF) 180 mcg/0.5 mL intramuscu lar syringe PHARMACIS T ADMINISTE RED IMMUNIZAT ION ADMINISTE RED AT TIME OF DISPENSIN G 07/05 completed Not Available Not Available Not Available Gemtesa 75 mg tablet Take 1 tablet every day by oral route. 12/16 completed pt takes it every OTHER day Not Available Not Available Not Available BinaxNOW COVID-19 Ag Self Test kit USE DIRECTED 10/30 completed Not Available Not Available Not Available Vitals Date Recorded Body height Body mass index (BMI) Body weight Body temperature Heart rate Oxygen saturation Oxygen saturation in Arterial blood by Pulse oximetry Systolic blood pressure Diastolic blood pressure Provider Name and Address Organization Details Last Updated DateTime 3 157.48 cm 28.2 kg/m2 88533.2 2 g 97.3 [degF] 85 /min 95 % 95 % 148 mm[Hg] 82 mm[Hg] EZRA [place] - [place] [employer] [facility] 3 10:23:10 Date Recorded Body height Body mass index (BMI) Body weight Body temperature Heart rate Oxygen saturation Oxygen saturation in Arterial blood by Pulse oximetry Systolic blood pressure Diastolic blood pressure Provider Name and Address Organization Details Last Updated DateTime 3 157.48 cm 27.8 kg/m2 24785.0 4 g 98.1 [degF] 94 /min 96 % 96 % 162 mm[Hg] 84 mm[Hg] Leighann Longoria MA [facility] [employer] [facility] 3 10:01:33 Date Recorded Body height Body mass index (BMI) Body weight Body temperature Heart rate Oxygen saturation Oxygen saturation in Arterial blood by Pulse oximetry Systolic blood pressure Diastolic blood pressure Provider Name and Address Organization Details Last Updated DateTime 3 157.48 cm 28 kg/m2 97946.6 3 g 97.2 [degF] 81 /min 98 % 98 % 144 mm[Hg] 82 mm[Hg] Belgica castaneda CMA [facility] [employer] [facility] 3 09:54:33 Date Recorded Body height Body mass index (BMI) Body weight Body temperature Heart rate Oxygen saturation Oxygen saturation in Arterial blood by Pulse oximetry Systolic blood pressure Diastolic blood pressure Provider Name and Address Organization Details Last Updated DateTime 3 157.48 cm 28.5 kg/m2 33300.4 1 g 97.5 [degF] 76 /min 96 % 96 % 146 mm[Hg] 84 mm[Hg] Leighann Longoria MA [facility] [employer] [facility] 3 12:42:52 Date Recorded Body height Body mass index (BMI) Body weight Body temperature Heart rate Oxygen saturation Oxygen saturation in Arterial blood by Pulse oximetry Systolic blood pressure Diastolic blood pressure Provider Name and Address Organization Details Last Updated DateTime 4 157.48 cm 28 kg/m2 96159.6 3 g 97.3 [degF] 74 /min 97 % 97 % 162 mm[Hg] 90 mm[Hg] Leighann Longoria MA [facility] [employer] [facility] 4 09:03:56 Social History Question Answer Notes LastModified by Organizat ion Details LastModified Time Tobacco Smoking Status Never Smoker Not Available [facility] 07/08/2022 05:53:22 Do You Have An Advance Directive? Yes [id number] Information not available 07/08/2022 What Is Your Level Of Alcohol Consumption? None MIGRATION.75884 [id number] Information not available 07/08/2022 Do You Wear A Helmet When Biking? Yes MIGRATION.15157 [id number] Information not available 07/08/2022 Are You Blind Or Do You Have Difficulty Seeing? No MIGRATION.35872 [id number] Information not available 07/08/2022 What Is Your Level Of Caffeine Consumption? None MIGRATION.83009 86610 Information not available 07/08/2022 In The 14 Days Before Symptom Onset, Have You Had Close Contact With A Laboratory-confir med COVID-19 While That Case Was Ill? No MIGRATION.34901 [id number] Information not available 07/08/2022 In The 14 Days Before Symptom Onset, Have You Had Close Contact With A Person Who Is Under Investigation For COVID-19 While That Person Was Ill? No MIGRATION.57400 [id number] Information not available 07/08/2022 Are You Deaf Or Do You Have Serious Difficulty Hearing? No MIGRATION.30096 69380 Information not available 07/08/2022 What Type Of Diet Are You Following? REGULAR MIGRATION.18220 [id number] Information not available 07/08/2022 What Is Your Occupation? RETIRED MIGRATION.20113 [id number] Information not available 07/08/2022 Have There Been Any Changes To Your Family Or Social Situation? No MIGRATION.13959 66918 Information not available 07/08/2022 Do You Use Insect Repellent Routinely? Yes MIGRATION.49880 [id number] Information not available 07/08/2022 Where Do You Live? [place] MIGRATION.66617 89734 Information not available 07/08/2022 Do You Have A Medical Power Of Foreign Correspondent? Yes MIGRATION.94019 62219 Information not available 07/08/2022 What Was The Date Of Your Most Recent Tobacco Screening? 02/04/2021 MIGRATION.61202 [id number] Information not available 07/08/2022 Do You Have Any Pets? Yes MIGRATION.79423 [id number] Information not available 07/08/2022 What Is Your Relationship Status? MIGRATION.05885 [id number] Information not available 07/08/2022 Do You Use Your Seat Belt Or Car Seat Routinely? Yes MIGRATION.79722 24760 Information not available 07/08/2022 Do You Have Smoke And Carbon Monoxide Detectors In Your Home? Yes MIGRATION.82266 [id number] Information not available 07/08/2022 Are You Passively Exposed To Smoke? No MIGRATION.93360 25132 Information not available 07/08/2022 Are There Any Smokers In Your House? No MIGRATION.14286 [id number] Information not available 07/08/2022 Do You Participate In Social Media? No MIGRATION.82602 96177 Information not available 07/08/2022 Do You Feel Stressed (tense, Restless, Nervous, Or Anxious, Or Unable To Sleep At Night)? [id number] MIGRATION.05947 [id number] Information not available 07/08/2022 Do You Use Any Illicit Or Recreational Drugs? No MIGRATION.60962 32239 Information not available 07/08/2022 Do You Use Sunscreen Routinely? Yes MIGRATION.67822 18663 Information not available 07/08/2022 Has Tobacco Cessation Counseling Been Provided? No MIGRATION.37567 58776 Information not available 07/08/2022 Have You Recently Traveled Abroad? No MIGRATION.11941 29085 Information not available 07/08/2022 Are You Currently In School? No MIGRATION.81941 14777 Information not available 07/08/2022 Do You Have Any Dietary Restrictions? No MIGRATION.27579 35837 Information not available 07/08/2022 Do You Or Have You Ever Used Any Other Forms Of Tobacco Or Nicotine? No MIGRATION.85051 76030 Information not available 07/08/2022 Sex: Unknown Functional Status Question Answer Note LastModified by Organizat ion Details LastModified Time Do you have difficulty walking or climbing stairs? No MIGRATION.9588774 026 Information not available 07/08/2022 Do you have transportation difficulties? No MIGRATION.0341240 026 Information not available 07/08/2022 Are you able to walk? YESWOREST MIGRATION.5750302 026 Information not available 07/08/2022 Do you have difficulty doing errands alone? No MIGRATION.6887950 026 Information not available 07/08/2022 Are you able to care for yourself? Yes MIGRATION.5700710 026 Information not available 07/08/2022 Do you have difficulty dressing or bathing? No MIGRATION.4741745 026 Information not available 07/08/2022 What is your exercise level? Occasional MIGRATION.2800117 026 Information not available 07/08/2022 Mental Status Question Answer Note LastModified by Organizat ion Details LastModified Time Do you have difficulty concentrating, remembering or making decisions? No MIGRATION.185002651 6 Information not available 07/08/2022 Family History Relationship Description Onset Age of this Age Resolved Age Notes LastModified by Organization Details LastModified Time Father Diabetes mellitus MIGRATION.601 [id number] Not available 07/08/2022 05:53:55 Father Heart disease MIGRATION.816 [id number] Not available 07/08/2022 05:53:55 Father Hypertensive disorder MIGRATION.818 [id number] Not available 07/08/2022 05:53:55 Sister Diabetes mellitus MIGRATION.237 [id number] Not available 07/08/2022 05:53:55 Sister Heart disease MIGRATION.827 [id number] Not available 07/08/2022 05:53:55 Sister Hypertensive disorder MIGRATION.035 [id number] Not available 07/08/2022 05:53:55 Medical History Condition Response HYPERTENSION Y Gynecological HistoryNo gynecological history recorded. Obstetrics History GPAL:G 0 P 0 0 0 0 Immunizations Vaccine Type Date Status Note Provider Nam e and Address Organization Details Recorded Time Influenza, high-dose, trivalent, PF 5 completed Not Available [facility] 02/05/2023 06:44:41 Influenza, high-dose, trivalent, PF 3 completed Not Available [facility] 02/05/2023 06:44:41 pneumococcal polysaccharide PPV23 3 completed Not Available [facility] 02/05/2023 06:44:41 herpes simplex 2 3 completed Not Available [facility] 02/05/2023 06:44:41 Influenza, high-dose, quadrivalent, PF 2 completed Not Available [facility] 02/05/2023 06:44:41 Influenza, high-dose, quadrivalent, PF 1 completed Not Available [facility] 02/05/2023 06:44:41 Pneumococcal conjugate PCV 13 1 completed Not Available [facility] 02/05/2023 06:44:41 Tdap 5 completed Not Available [facility] 02/05/2023 06:44:41 Influenza, high-dose, quadrivalent, PF 3 completed KIERA Washington [address], [place], [address], [facility] 04/09/2023 10:34:28 Past Encounters Encounter ID Performer Location Encounter Start Date Encounter Closed Date Diagnosis/Indication Diagnosis SNOMED-CT Code Diagnosis ICD10 Code Diagnosis Note [id number] Octavio Crowley MD [facility] [place] [place] [facility] [place] [address] [place] [address] 02/04/2021 00:00:00 02/04/2021 21:54:49 [id number] Octavio Crowley MD [facility] [place] [address] [place] [address] 07/21/2021 00:00:00 07/21/2021 21:33:26 [id number] Donta Germain MD [facility] [address] [place] [address] 07/29/2021 00:00:00 07/29/2021 16:08:49 [id number] Octavio Crowley MD [facility] [place] [address] [place] [address] 08/04/2021 00:00:00 08/05/2021 08:19:56 [id number] Donta Germain MD [facility] [address] [place] [address] 08/26/2021 00:00:00 08/26/2021 15:07:38 [id number] Octavio Crowley MD [facility], [facility] [place] [address] [place] [address] 09/16/2021 00:00:00 09/16/2021 19:38:37 [id number] Octavio Crowley MD [facility], [facility] [place] [address] [place] [address] 10/30/2021 00:00:00 10/30/2021 22:13:12 [id number] Donta Germain MD [facility] [address] [place] [address] 12/16/2021 00:00:00 12/16/2021 14:19:01 [id number] Octavio Crowley MD [facility] [place] [address] [place] [address] [place] [address] 02/25/2022 00:00:00 02/25/2022 19:06:38 [id number] Octavio Crowley MD [facility] [place] [address] [place] [address] [place] [address] 10/01/2022 10:09:45 10/01/2022 10:46:49 Esophageal dysphagia 23640242 R13.19 Chronic low back pain 27 2378165 M54.50 Continue tylenol arthritis routinely. May take aleve as needed. Constipation 38062184 K5 9.00 Use miralax as needed. I told pt. that tylenol is not constipati ng and can take it routinely [id number] Octavio Crowley MD [facility] [place] [facility] [place] [address] 12/04/2022 09:45:45 12/04/2022 10:39:43 Irritable bowel syndrome 37596400 K58.9 Chronic constipation 236 437680 K59.09 Essential hypertension 75358801 I10 Hyperlipidemia 93465999 E78.5 Costal chondritis 631283 04 M94.0 Prolapsed lumbar intervertebral disc 791313661 M51.26 Chest pain 44528371 R07. 9 Anxiety 21535153 F41.9 Esophageal dysphagia 408 22522 R13.19 Gastroesop hageal reflux disease 412152327 K21.00 [id number] Octavio Crowley MD [facility] [address] [address] [facility] [place] [address] 01/29/2023 09:48:40 01/29/2023 10:25:25 Skin lesion 51745063 L98.9 Shave Bx done. Will notify pt of results [id number] Octavio Crowley MD [facility] [place] [address] [place] [address] 04/06/2023 12:26:28 04/06/2023 13:10:58 Sinusitis 74308110 J32.9 Administra tion of influenza vaccine 48571931 Z23 Costal chondritis 998183 04 M94.0 [id number] Octavio Crowley MD [facility] [place] [address] [facility] [place] [address] 05/14/2023 08:52:22 05/14/2023 09:24:46 Essential hypertension 09755377 I10 Sinusitis 46099432 J32.9 Anxiety 77567621 F41.9 Chronic low back pain 27 4204883 M54.50 Gastroesop hageal reflux disease 535420815 K21.00 Hyperlipidemia 34610395 E78.5 Prolapsed lumbar intervertebral disc 859396947 M51.26 Health Concerns Section Related Observation LastModified by Organization Detai ls LastModified Time None Recorded Concern Status LastModified by Organization Details LastModified Time None Recorded Advance Directives Directive Y: Payers Encounter Date Sequence Insurance Name Policy Number Policy Baker Covered Member ID Baker Member ID Guarantor Name 10/01/2022 1 [facility] (MEDICARE REPLACEMENT/A DVANTAGE - HMO) [id number] Mariana Gutiérrez [id number] Mariana Gutiérrez 12/04/2022 1 [facility] (MEDICARE REPLACEMENT/A DVANTAGE - HMO) [id number] Mariana Gutiérrez [id number] Mariana Gutiérrez 01/29/2023 1 [facility] (MEDICARE REPLACEMENT/A DVANTAGE - HMO) [id number] Mariana Gutiérrez [id number] Mariana Gutiérrez 04/06/2023 1 [facility] (MEDICARE REPLACEMENT/A DVANTAGE - HMO) [id number] Mariana Gutiérrez [id number] Mariana Gutiérrez 05/14/2023 1 [facility] (MEDICARE REPLACEMENT/A DVANTAGE - HMO) [id number] Mariana Gutiérrez [id number] Mariana Gutiérrez Notes Date Note Type Note Provider Name and Address Organization Details Recorded Time 10/01/2022 text/html Here today c/o difficulty swallowing and has acid reflux. Has difficulty swallowing food and meds. Has a cough at night especially when laying down. Taking Rx pantoprazole and pepcid.Has back pain and when takes pain meds makes her more constipated. She is only taking tylenol arthritis and this helps. She thinks it makes her constipated. She does not take NSAIDs. Octavio Crowley MD [address] [facility], [place], [address], [facility] (app) 10/01/2022 20:31:19 12/04/2022 text/html she was having a lot of belching and chest discomfort last nigh . Had spaghetti at lunch . She was close to calling the paramedics , when it subsided enough to go to sleep KIERA Washington [address] [facility], [place], [address], [employer] ([facility]) 12/06/2022 10:27:57 01/29/2023 text/html Has a lesion on left arm. When brushes over it it is tender. Tried antibx ointment and no help. There is fmhx of skin cancers. Has noticed this x 1 month. It has gotten bigger. No other issues. Octavio Crowley MD [address] [facility], [place], [address], [employer] ([facility]) 01/29/2023 18:26:24 04/06/2023 text/html EARS HURTING , FEEL FULL , NO FEVER KIERA Washington [address], [place], [address], [employer] ([facility]) 04/09/2023 10:40:32 05/14/2023 text/html toes tingle , hands weak, had Covid before [place], sinus pressure , no fever , last few days KIERA Washington [address], [place], [address], [facility] ([facility]) 05/16/2023 13:07:09 OBGyn Episode No OBEpisode recorded.
== END 2024-09-11 16:00 | disposition home or self-care (01) ==
PROVIDERS: PCP Family Medicine; Visit Provider Neurological Surgery
DX: M43.16 Spondylolisthesis, lumbar region (principal); M51.369 Other intervertebral disc degeneration, lumbar region without mention of lumbar back pain or lower extremity pain; M48.061 Spinal stenosis, lumbar region without neurogenic claudication; Z98.1 Arthrodesis status
CPT/HCPCS: 72131

== ENCOUNTER 2024-09-25 11:39 | Outpatient (CLI) | payer MEDICARE, SELFPAY ==
--- NOTE | ~2024-09-25 | XR_ITS ---
CHEST RADIOGRAPH, PA AND LATERAL CLINICAL HISTORY: M43.16 - Spondylolisthesis, lumbar region . COMPARISON: 09/01/2018 TECHNIQUE: PA and lateral views of the chest. FINDINGS The cardiomediastinal silhouette is unremarkable. The lungs are clear. IMPRESSION: No focal infiltrate or effusion. Reviewed, dictated and finalized at location A.
--- OUTSIDE RECORDS SUMMARY | 2024-09-25 12:10 | XMS_ITS | CONTINUITY OF CARE DOCUMENT ---
Author Name shirajustice vamsikeon Address Unknown Organization [facility] Address [address] [place] [address] Phone [phone] Care Team Providers Care Infusion Pharmacist Name Role Phone Claude Daniel MD Unavailable SANJIV ISAACS Unavailable PROBLEMS Condition Status Date Provider Notes Localized swelling on legs, bilateral active 8 Claude Daniel MD Cardiology examination active Claude Daniel MD Chest pain active Claude Daniel MD Sleep apnea active Claude Daniel MD Dyslipidemia active Claude Daniel MD Essential hypertension active Claude Daniel MD ENCOUNTERS Date Type Provider Location Encounter Diag nosis - In-person encounter Office Visit Claude Daniel MD [facility] Essential hypertensionDyslipidemiaSleep apneaChest painCardiology examinationLocalized swelling [...] Payer name Policy type / Coverage type Carlotta red constitution party ID AARP MEDICARE ADVANTAGE HMO-POS HMO [id number] ADVANCE DIRECTIVES Name Date DISCUSSED - NO DECISION MADE TREATMENT PLAN Date Name Performer [id number],NClaude MD [id number],S, Claude griffin MD [id number],S, Claude griffin MD [id number],W, Claude griffin MD [id number],NClaude MD Cardiology Claude Daniel MD Cardiology Claude [...]
--- OUTSIDE RECORDS SUMMARY | 2024-09-25 12:10 | XMS_ITS | Continuity of Care Document ---
Author Organization [facility] Address [address] [place] [address] [place] [address] Phone Care Team Providers Care Laser Operator Name Role Phone Issac Calhoun DO Unavailable Unavailable Advance Directives Directive Yes / No Effective Date File Name No Information Encounters Encounter Description Practice Location Reason(s) For Visit Diagnoses Date Provider Providers Copied on Encounter [facility], [id number] [place] [address] [address], [place], [place], [id number], [place] tel:[phone] [facility] No Information [place]. [address] [facility], [place], [address], [place]. tel: [phone] Family History Family Member Type Diagnosis Age At Onset No Information Payers Payer name Insurance type Covered constitution party ID Authoriza tiruss(s) [facility] Commercial CI [id number] Social History Type Description Quantity Date Captured [...]
--- OUTSIDE RECORDS SUMMARY | 2024-09-25 12:10 | XMS_ITS | Referral Summary ---
Author Organization [facility] Address [address] [place] [address] Care Team Providers Care Manager Of Patient Name Role Phone Octavio Crowley MD Primary Care Provider [phone] Allergies Active Allergy Reactions Criticality Noted Date [...] How often do you attend chur or yarsanism services? 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 Gender Identity Not on file Sexual Orientation [...] on file Medical Devices Implanted Type Area Towel Sorter Device Identifier Shelf Expiration Date Model / Serial / Lot Medtronic Sofofelia Danek [id number] Infuse 14mm 23mm Absorbable Sponge Sterile Water Syringe Needle - [id number] Implanted:Qty: 1 on 03/05/2020 by Keith Mack MD at [facility] Spine Lumbar Medtronic Inc 01/07/2021 [id number] / / [id number] inEartha Adaptive Symbiotic Technologiesciences Janine Dp-1011 Duragen Plus 1x1in Patch Resorbable Suturable Cranial Dura Graft - [id number] Implanted:Qty: 1 on 03/05/2020 by Keith Mack MD at [facility] Spine Lumbar Integra Lifesciences Janine 09/06/2022 DP-[id number] / / [id number] Nuvasive Creative Spine Tech [id number] Modulus [id number] 10d Xl Cage Spinal Sterile Latex Free - [id number] Implanted:Qty: 1 on 03/05/2020 by Keith Mack MD at [facility] Spine Lumbar Nuvasive Inc 01/11/2024 [id number] / / [id number] Spinal Graft Tech [id number] [place] Putty Jar Graft 5cc Bone Demineralized Bone Matrix - [id number] - [id number] Implanted:Qty: 1 on 03/05/2020 by Keith Mack MD at [facility] Spine Lumbar Spinal Graft Tech 12/17/2022 [id number] / [id number] / Nuvasive Creative Spine Tech [id number] Modulus [id number] 10d Xl Cage Spinal Sterile Latex Free - [id number] Implanted:Qty: 1 on 03/05/2020 by Keith Mack MD at [facility] Spine Lumbar Nuvasive Inc 08/22/2024 [id number] / / [id number] K2m Llc 2901-08704 [place] Spine Screw Set Crow - [id number] Implanted:Qty: 6 on 03/05/2020 by Keith Mack MD at [facility] Spine Lumbar [place] Spine [id number] / / K2m Llc 2911-08752 [place] Od6.5 Mm L40 Mm Polyaxial Spine Screw Bone - [id number] Implanted:Qty: 2 on 03/05/2020 by Keith Mack MD at [facility] Spine Lumbar [place] Spine [id number] / / K2m Llc 2911-64121 [place] Od6.5 Mm L45 Mm Polyaxial Spine Screw Bone - [id number] Implanted:Qty: 4 on 03/05/2020 by Keith Mack MD at [facility] Spine Lumbar [place] Spine [id number] / / K2m Llc [id number] Od5.5 Mm L65 Mm Contour Curved; Contour Charlie Spinal Crow - [id number] Implanted:Qty: 2 on 03/05/2020 by Keith Mack MD at [facility] Spine Lumbar Romel Spine [id number] / / Spinal Graft Tech [id number] [place] Putty Jar Graft 5cc Bone Demineralized Bone Matrix - [id number] - [id number] Implanted:Qty: 1 on 03/05/2020 by Keith Mack MD at [facility] Spine Lumbar Spinal Graft Tech 09/11/2022 [id number] / [id number] / Procedures Procedure Name Priority Date/Time Associated Diagnosis Comments COLONOSCOPY 07/26/2018 8:56 AM CDT from Last 3 Months or Most Recently Relevant to Health Maintenance Results * COLONOSCOPY (07/26/2018 8:56 AM CDT) Anatomical Region Laterality Modality Other Narrative Procedure Note Pippa Mei MD - 07/26/2018 8:56 AM CDT [facility] Patient Name: Mariana Gutiérrez Procedure [...] by the physician, the nurse and the oracle applications analyst in the procedure room. Mental Status Examination: [...] passedunder direct vision. The Colonoscope CF-Q180 [place] [id number] introduced through the anus and advanced to [...] not recommended. Procedure Code(s): --- Professional --- 44564, Colonoscopy, flexible; with biopsy, single or multiple Diagnosis Code(s): --- Professional --- K63.89, Other specified diseases of intestine K64.8, Other hemorrhoids K92.1, Melena (includes Hematochezia) K57.30, Diverticulosis of large intestine without perforation or abscess without bleeding CPT copyright 2017 [employer]. All rights reserved. The codes documented in this report are preliminary and upon solar project coordination specialist reviewmay be revised to meet current compliance requirements. Electronically signed by Pippa Mei M.D. Pippa Mei M.D. 07/26/2018 9:30:08 AM Number of Addenda: 0 Note Initiated On: 07/26/2018 8:56 AM Pippa Mei MD ENDOSCOPY PROCEDURES Fi nal Result from Last 3 Months or Most Recently Relevant to Health Maintenance [facility] HMO REF [id number] [place] [address] HMO REF [facility]CR HMO REF Advance Directives For more information, please contact: [phone] * Full Code (Latest Code Status on File) Date Activated Date Inactivated Comments 03/05/2020 4:36 PM 03/10/2020 1:46 AM Care Teams Manager Of Patient Relationship Specialty Start Date End Date Octavio Crowley MD [address] [place] [address] [place] [address] PCP - General Family Medicine 12/14/19
--- OUTSIDE RECORDS SUMMARY | 2024-09-25 12:10 | XMS_ITS | Data Portability ---
Author Organization [place] - [facility], Main Office Address [address] [place] [address] Care Team Providers Care Carpenter Foreman Name Role Phone OCTAVIO MCKEON Primary Care Provider OCTAVIO MCKEON Referring Provider [phone] Assessment No assessment recorded. Plan of Treatment Reminders Order Date Submit Date Provider Last Modified By Organization Details Last Modified Time Details Appointments None recorded. Lab biopsy, skin - Left forearm lesion 2022 023 [facility] [address] [place], [address], 3 10:47:24 Referral cardiologis t referral - 77 y/o chest pains , as irritable bowel and bloating with constipatio n. Has costal chondritis . But Please evaluate her and treat prn . Thank you . Has a longstandin g heart murmur. 2022 023 [email or web address] 3 [place], [address] [address] , [facility] [address], [address], 3 09:26:39 gastroenter ologist referral 2022 023 NELLA Diaz MD, [address] [facility] 162, [facility] [address], [address], 3 16:29:57 Procedures None recorded. Surgeries None recorded. Imaging None recorded. Medication Orders ciprofloxac in 500 mg tablet 2023 024 [facility] 1761, [address] [place] [address], [address], 4 09:19:44 benazepril 40 mg tablet 2023 024 [facility] [address], [address] [place] [address], [address], 4 09:16:41 ciprofloxac in 500 mg tablet 2022 023 [facility] [address], [address] [place] [address], [address], 3 12:56:05 ibuprofen 600 mg tablet 2022 023 [facility] 176, [address] [place] [address], [address], 3 10:40:29 sucralfate 1 gram tablet 2022 023 [facility] [address], [address] [place] [address], [address], 3 10:14:18 ibuprofen 600 mg tablet 2022 023 [facility] 176, [address] [place] [address], [address], 3 10:17:44 Patient TargetsNo targets recorded. Patient Instructions Encounter Date Encounter Id Patient Instructions Last Modified By Organization Details Last Modified Time 12/04/2022 [id number] reinforced her instinct to call the paramedics . Take an extra baby aspirin anytime when chest pain occurs . [email or web address] Not available 12/06/2022 10:24:30 Reason for Referral Acid Washer Operator Referral for Esophageal dysphagia Referring Physician: Octavio Crowley, Family Medicine, Encounter Date: 10/01/2022 Dining Host Referral for Ch est pain 77 y/o [...] , scree hui, digit al, bilat eral [facility] [place] [address] [facility] [address], [place] [address] Patishahnaz t Name: SHELLY OLIVAREZ Luz Elena Access ion #: [id number] Sex: F : 1944 8 Locati [...] tion are seen. Page 1 of 2 [facility] Tejal t Name: SHELLY OLIVAREZ Access ion #: [id number] Sex: F : 1944 8 Exam [...] [facility] A negati ve mammog carlos report [...] 1:40 PM (CT) Page 2 of [address] (Imaging) [address] [place], [address], 11/02/2022 15:16:51 11/03/19 23 11/02/2022 MAMMO , scree hui, bilat eral No observ ation record ed. [address] [place], [address], 11/02/2022 15:16:51 06/07/19 24 06/07/2023 XR, hand, 3 or more view No observ ation record ed. [email or web address] [facility] [address] [place], [address], 06/08/2023 12:19:19 Result Notes None recorded. Problems Name Problem SNOMED Code Status Onset Date Resolution Date Notes Provider Name and Address Organization Details Recorded Time Irritable bowel syndrome 86422847 Active 2018 Not Available [facility] 3 06:44:40 Acquired trigger finger 6791762 Active 2018 Not Available [facility] 3 06:44:40 Acute sinusitis 46707369 Completed Not Available [facility] 3 05:59:02 Otalgia 89935805 Active 2018 Not Available [facility] 3 06:44:40 Mammograph y abnormal 445718710 Completed Not Available [facility] 3 05:59:02 Radiothera py follow-up 516853355 Active Not Available [facility] 3 06:44:40 Prolapsed lumbar interverte bral disc 480195000 Active 2021 Not Available [facility] 3 06:44:40 Abdominal pain 02941805 Completed Not Available [facility] 3 05:59:02 Gastroesop hageal reflux disease 239723109 Active Not Available [facility] 3 06:44:40 Chronic constipati on 837444440 Active 2018 Not Available [facility] 3 06:44:40 Low back pain 172324294 Active 2018 Not Available [facility] 3 06:44:41 Painless rectal bleeding 235569692 Active 2018 Not Available [facility] 3 06:44:41 Anxiety 96574197 Active Not Available [facility] 3 06:44:41 Hyperlipid emia 50292968 Active Not Available [facility] 3 06:44:41 Essential hypertensi on 25923494 Active Not Available [facility] 3 06:44:41 Obstructiv e sleep apnea syndrome 26236392 Active 2018 Not Available [facility] 3 06:44:41 Epigastric pain 75480195 Completed Not Available [facility] 3 05:59:03 Chronic rhinitis 87191906 Active Not Available [facility] 3 06:44:41 Skin lesion 04267025 Completed Octavio Crowley MD [address], [place], [address] , [employer] 3 10:11:14 Bilateral cataracts 71523818 Completed 201807/04/2018 Not Available [facility] 3 05:59:03 Esophageal dysphagia 66972716 Active 2022 Not Available [facility] 3 06:44:41 Chronic low back pain 146298981 Active 2022 Not Available [facility] 3 06:44:40 Constipati on 65070215 Active 2022 Not Available [facility] 3 06:44:40 Costal chondritis 29600045 Active 2022 Not Available [facility] 3 06:44:41 Chest pain 47258509 Active 2022 Not Available [facility] 3 06:44:41 Skin lesion 73866127 Active 2022 Not Available [facility] 3 06:44:41 Squamous cell carcinoma of skin 505962578 Active 2022 Not Available [facility] 3 06:44:40 Sinusitis 27837006 Active 2022 KIERA Washington [address], [place], [address] , [employer] 3 12:54:53 Administra tion of influenza vaccine Active 2022 KIERA Washington [address], [place], [address] , [employer] 3 12:58:59 Problem Notes None recorded. Procedures Surgical History Date Name Laterality Status Provider Name and Address Organization Details Recorded Time 01/30/20 23 Shave Biopsy completed Octavio Crowley MD [address], [place], [address], [employer] 01/29/2023 18:25:55 Back Surgeries completed Not Available [facility] 07/08/2022 05:53:55 Breast Biopsy completed Not Available [facility] 07/08/2022 05:53:55 Cataract Surgery completed Not Available [facility] 07/08/2022 05:53:55 Cholecystectomy completed Not Available [facility] 07/08/2022 05:53:55 Hysterectomy completed Not Available [facility] 07/08/2022 05:53:55 Hemorrhoidectomy completed Not Available [facility] 07/08/2022 05:53:55 procedure on skin completed Lakshmi Longoria MA [place] [employer] [facility] 05/14/2023 09:05:10 Imaging Results Imaging Date Name Status LastModified by Organiz ation Details LastModified Time 11/02/2022 MAMMO, screening, digital, bilateral completed [address] (Imaging) [address] [place], [address], 11/02/2022 15:16:51 11/02/2022 MAMMO, screening, bilateral [email or web address] [address] [place], [address], 11/02/2022 15:16:51 06/07/2023 XR, hand, 3 or more view completed [email or web address] [facility] [address] [place], [address], 06/08/2023 12:19:19 Procedure Notes None recorded. Medical Equipment None Reported. Allergies Allergen ID Allergen Name Allergen Category Reaction Reaction Severity Criticality Documentation Date Start Date Code Code System Note Provider Name and Address Organization Details Recorded Time 72431 Toradol medicatio n Not available Not available Not available 07/08/2022 87004 RxNorm Not Available [facility] 3 06:05:25 95409 adhesive environme nt,medica tion Not available Not available Not available 07/08/2022 17737 UNK Not Available [facility] 06:05:25 Medications Name Sig Start Date Stop [...] completed Not Available Not Available Not Available [facility] 3 02/04 completed Not Available Not Available [...] Available Not Available Not Available Fluzone High-Dose 2120-6128 (PF) 180 mcg/0.5 mL intramuscu lar syringe [...] Updated DateTime 3 157.48 cm 28.2 kg/m2 74972.2 2 g 97.3 [degF] 85 /min 95 % 95 % 148 mm[Hg] 82 mm[Hg] Leighann Longoria MA [place] [employer] [facility] 3 10:23:10 Date Recorded Body height Body mass index (BMI) Body weight Body temperature Heart rate Oxygen saturation Oxygen saturation in Arterial blood by Pulse oximetry Systolic blood pressure Diastolic blood pressure Provider Name and Address Organization Details Last Updated DateTime 3 157.48 cm 27.8 kg/m2 23799.0 4 g 98.1 [degF] 94 /min 96 % 96 % 162 mm[Hg] 84 mm[Hg] Leighann Longoria MA [facility] [employer] [facility] 3 10:01:33 Date Recorded Body height Body mass index (BMI) Body weight Body temperature Heart rate Oxygen saturation Oxygen saturation in Arterial blood by Pulse oximetry Systolic blood pressure Diastolic blood pressure Provider Name and Address Organization Details Last Updated DateTime 3 157.48 cm 28 kg/m2 53550.6 3 g 97.2 [degF] 81 /min 98 % 98 % 144 mm[Hg] 82 mm[Hg] Belgica castaneda CMA [facility] [employer] [facility] 3 09:54:33 Date Recorded Body height Body mass index (BMI) Body weight Body temperature Heart rate Oxygen saturation Oxygen saturation in Arterial blood by Pulse oximetry Systolic blood pressure Diastolic blood pressure Provider Name and Address Organization Details Last Updated DateTime 3 157.48 cm 28.5 kg/m2 14020.4 1 g 97.5 [degF] 76 /min 96 % 96 % 146 mm[Hg] 84 mm[Hg] Leighann Longoria MA [facility] [employer] [facility] 3 12:42:52 Date Recorded Body height Body mass index (BMI) Body weight Body temperature Heart rate Oxygen saturation Oxygen saturation in Arterial blood by Pulse oximetry Systolic blood pressure Diastolic blood pressure Provider Name and Address Organization Details Last Updated DateTime 4 157.48 cm 28 kg/m2 86024.6 3 g 97.3 [degF] 74 /min 97 % 97 % 162 mm[Hg] 90 mm[Hg] Leighann Longoria MA [facility] [employer] [facility] 4 09:03:56 Social History Question Answer Notes LastModified by Organizat ion Details LastModified Time Tobacco Smoking Status Never Smoker Not Available [employer] 07/08/2022 05:53:22 Do You Have An Advance Directive? Yes MIGRATION.86578 33977 Information not available 07/08/2022 Do You Wear A Helmet When Biking? Yes MIGRATION.26063 04198 Information not available 07/08/2022 Are You Blind Or Do You Have Difficulty Seeing? No MIGRATION.75691 48245 Information not available 07/08/2022 What Is Your Level Of Caffeine Consumption? None MIGRATION.21085 10589 Information not available 07/08/2022 In The 14 Days Before Symptom Onset, Have You Had Close Contact With A Laboratory-confir med COVID-19 While That Case Was Ill? No MIGRATION.73098 52510 Information not available 07/08/2022 In The 14 Days Before Symptom Onset, Have You Had Close Contact With A Person Who Is Under Investigation For COVID-19 While That Person Was Ill? No MIGRATION.48529 63195 Information not available 07/08/2022 Are You Deaf Or Do You Have Serious Difficulty Hearing? No MIGRATION.52765 87557 Information not available 07/08/2022 What Type Of Diet Are You Following? REGULAR MIGRATION.65291 58755 Information not available 07/08/2022 Have There Been Any Changes To Your Family Or Social Situation? No MIGRATION.68738 65610 Information not available 07/08/2022 Do You Use Insect Repellent Routinely? Yes MIGRATION.52778 19940 Information not available 07/08/2022 Where Do You Live? [place] MIGRATION.49777 51578 Information not available 07/08/2022 Do You Have A Medical Power Of Fire Extinguisher Technician? Yes MIGRATION.61778 83924 Information not available 07/08/2022 What Was The Date Of Your Most Recent Tobacco Screening? 02/04/2021 MIGRATION.38037 99893 Information not available 07/08/2022 Do You Have Any Pets? Yes MIGRATION.13230 73103 Information not available 07/08/2022 What Is Your Relationship Status? MIGRATION.43459 38804 Information not available 07/08/2022 Do You Use Your Seat Belt Or Car Seat Routinely? Yes MIGRATION.13802 73330 Information not available 07/08/2022 Do You Have Smoke And Carbon Monoxide Detectors In Your Home? Yes MIGRATION.51425 89834 Information not available 07/08/2022 Are You Passively Exposed To Smoke? No MIGRATION.40103 83465 Information not available 07/08/2022 Are There Any Smokers In Your House? No MIGRATION.23175 26097 Information not available 07/08/2022 Do You Participate In Social Media? No MIGRATION.26339 82349 Information not available 07/08/2022 Do You Use Sunscreen Routinely? Yes MIGRATION.02639 02433 Information not available 07/08/2022 Has Tobacco Cessation Counseling Been Provided? No MIGRATION.27623 12810 Information not available 07/08/2022 Have You Recently Traveled Abroad? No MIGRATION.29732 38183 Information not available 07/08/2022 Do You Have Difficulty Walking Or Climbing Stairs? No MIGRATION.94602 25788 Information not available 07/08/2022 Are You Currently In School? No MIGRATION.97680 54050 Information not available 07/08/2022 Do You Have Any Dietary Restrictions? No MIGRATION.57724 94818 Information not available 07/08/2022 Sex: Unknown Functional Status Question Answer Note LastModified by OrganauctionPALat ion Details LastModified Time Do you use any illicit or recreational drugs? No MIGRATION.2257524 026 Information not available 07/08/2022 Do you or have you ever used any other forms of tobacco or nicotine? No MIGRATION.6213860 026 Information not available 07/08/2022 What is your level of alcohol consumption? None MIGRATION.4195843 026 Information not available 07/08/2022 Do you have transportation difficulties? No MIGRATION.9386456 026 Information not available 07/08/2022 Are you able to walk? YESWOREST MIGRATION.8235640 026 Information not available 07/08/2022 Do you have difficulty doing errands alone? No MIGRATION.6214380 026 Information not available 07/08/2022 Are you able to care for yourself? Yes MIGRATION.9196530 026 Information not available 07/08/2022 What is your occupation? RETIRED MIGRATION.5958339 026 Information not available 07/08/2022 Do you have difficulty dressing or bathing? No MIGRATION.2136256 026 Information not available 07/08/2022 What is your exercise level? Occasional MIGRATION.3906883 026 Information not available [id number]|2024-09-25 11:59:00|2024-09-25 12:52:00|ECG_ITS|RAMY|Cardiology|[id number]|"Test Date: 2024-09-25 12:52:52 Measurements Intervals [place] Rate: 69 P: 12 ME: 201 QRS: -52 QRSD: 98 T: 18 QT: 361 QTc: 388 Interpretive Statements SINUS RHYTHM MARKED LEFT AXIS DEVIATION [QRS AXIS < -30] PATTERN CONSISTENT WITH PULMONARY DISEASE NONSPECIFIC T-WAVE ABNORMALITY WARNING: DATA QUALITY MAY AFFECT INTERPRETATION No previous ECG available for comparison Electronically Signed On 09-25-2024 13:11:02 CDT by Chaitanya Kirkland M.D. "
--- OUTSIDE RECORDS SUMMARY | 2024-09-25 12:10 | XMS_ITS | Clinical Summary ---
Author Organization [facility] Address [address] [place] [address] Care Team Providers Care Architectural Design Lecturer Name Role Phone Octavio Crowley MD Primary Care Provider [phone] Allergies Active Allergy Reactions Criticality Noted Date [...] often do you attend chur ch or taoism services? 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 Gender Identity Not on file Sexual Orientation [...] 02/11/2017, 03/02/2013 Medical Devices Implanted Type Area Mold Machine Operator Device Identifier Shelf Expiration Date Model / Serial / Lot Medtronic [employer]oup[employer]com Danek [id number] Infuse 14mm 23mm Absorbable Sponge Sterile Water Syringe Needle - [id number] Implanted:Qty: 1 on 03/05/2020 by Keith Mack MD at [facility] Medtronic Inc 01/07/2021 [id number] / / [id number] [employer] Janine Dp-1011 Duragen Plus 1x1in Patch Resorbable Suturable Cranial Dura Graft - [id number] Implanted:Qty: 1 on 03/05/2020 by Keith Mack MD at [facility] Integra Lifesciences Janine 09/06/2022 DP-1011 / / [id number] Nuvasive Creative Spine Tech [id number] Modulus [id number] 10d Xl Cage Spinal Sterile Latex Free - [id number] Implanted:Qty: 1 on 03/05/2020 by Keith Mack MD at [facility] Nuvasive Inc 01/11/2024 [id number] / / [id number] Spinal Graft Tech [id number] Davonte Putty Jar Graft 5cc Bone Demineralized Bone Matrix - [id number] - [id number] Implanted:Qty: 1 on 03/05/2020 by Keith Mack MD at [facility] Spinal Graft Tech 12/17/2022 [id number] / [id number] / Nuvasive Creative Spine Tech [id number] Modulus [id number] 10d Xl Cage Spinal Sterile Latex Free - [id number] Implanted:Qty: 1 on 03/05/2020 by Keith Mack MD at [facility] Nuvasive Inc 08/22/2024 [id number] / / [id number] K2m Llc [id number] [place] Spine Screw Set Crow - [id number] Implanted:Qty: 6 on 03/05/2020 by Keith Mack MD at [facility] Romel Spine [id number] / / K2m Llc 2911-31807 [place] Od6.5 Mm L40 Mm Polyaxial Spine Screw Bone - [id number] Implanted:Qty: 2 on 03/05/2020 by Keith Mack MD at [facility] Romel Spine [id number] / / K2m Llc 2911-52202 [place] Od6.5 Mm L45 Mm Polyaxial Spine Screw Bone - [id number] Implanted:Qty: 4 on 03/05/2020 by Keith Mack MD at [facility] Lum[facility] [place] Spine [id number] / / K2m Llc [id number] Od5.5 Mm L65 Mm Contour Curved; Contour Charlie Spinal Crow - [id number] Implanted:Qty: 2 on 03/05/2020 by Keith Mack MD at [facility] Romel Spine [id number] / / Spinal Graft Tech [id number] [place] Putty Jar Graft 5cc Bone Demineralized Bone Matrix - [id number] - [id number] Implanted:Qty: 1 on 03/05/2020 by Keith Mack MD at [facility] Spinal Graft Tech 09/11/2022 [id number] / [id number] / Procedures Procedure Name Priority Date/Time Associated Diagnosis Comments COLONOSCOPY 07/26/2018 8:56 AM CDT from Last 3 Months or Most Recently Relevant to Health Maintenance Results * COLONOSCOPY (07/26/2018 8:56 AM CDT) Anatomical Region Laterality Modality Other Narrative Procedure Note Pippa Mei MD - 07/26/2018 8:56 AM CDT [facility] Patient Name: Mariana Gutiérrez Procedure [...] by the physician, the nurse and the lead burner helper in the procedure room. Mental Status Examination: [...] passedunder direct vision. The Colonoscope CF-Q180 AL [id number] introduced through the anus and advanced to [...] not recommended. Procedure Code(s): --- Professional --- 99337, Colonoscopy, flexible; with biopsy, single or multiple Diagnosis Code(s): --- Professional --- K63.89, Other specified diseases of intestine K64.8, Other hemorrhoids K92.1, Melena (includes Hematochezia) K57.30, Diverticulosis of large intestine without perforation or abscess without bleeding CPT copyright 2017 [employer]. All rights reserved. The codes documented in this report are preliminary and upon cyber security manager reviewmay be revised to meet current compliance requirements. Electronically signed by Pippa Mei M.D. Pippa Mei M.D. 07/26/2018 9:30:08 AM Number of Addenda: 0 Note Initiated On: 07/26/2018 8:56 AM Pippa Mei MD ENDOSCOPY PROCEDURES Fi nal Result from Last 3 Months or Most Recently Relevant to Health Maintenance [facility] Address: [address] [address] [place] [address] [facility] H[facility] Address: [address] [address] [place] [phone] [facility] HMO [facility] Address: [address] [address] [place] [phone] [facility] MDCR HMO [facility] Address: [facility] [address] [place] [address] Advance Directives For more information, please contact: [phone] * Full Code (Latest Code Status on File) Date Activated Date Inactivated Comments 03/05/2020 4:36 PM 03/10/2020 1:46 AM Care Teams Architectural Design Lecturer Relationship Specialty Start Date End Date Octavio Crowley MD [facility] [place] [address] PCP - General Family Medicine 12/14/19
[2024-09-25 13:06] LABS: Hematocrit 42.9 % (37.0-47.0); Mean Corpuscular HGB Conc 30.3 g/dl (32-36); Mean Corpuscular Hemoglobin 28.3 pg (26-34); Mean Corpuscular Volume 93.5 fl (80-100); Mean Platelet Volume 10.7 fl (7.4-10.4); Platelet Count Result 239 k/mm3 (150-375); Red Blood Count 4.59 M/mm3 (4.2-5.4); Red Cell Distribution Width 14.5 % (11.5-14.5); White Blood Count 6.2 K/mm3 (4.5-10.0)
[2024-09-25 13:15] LABS: Add Urine Microscopic? YES; Appearance Urine Clear (Clear); Bacteria Urine 2+ /hpf; Bilirubin Urine Negative (Negative); Blood Urine Negative (Negative); Color Urine Yellow (Yellow); Glucose Urine UA Negative (Negative); Ketones Urine Trace mg/dL (Negative); Leukocyte Esterase Ur Trace LEU/UL (Negative); Nitrate Urine Negative (Negative); Non Pathogenic Casts 0-2; Protein Urine Negative (Negative); RBC Urine 0-2 /hpf (0-2); Specific Grav Ur 1.013 (1.001-1.035); Squamous Epithelial Cell Urine Few /hpf (Few); Urobilinogen Urine 0.2 mg/dL (<2.0); WBC Urine 0-5 /hpf (0-3); pH Urine 5.5 (5.0-9.0)
[2024-09-25 13:18] LABS: Anion Gap 10 mmol/L (4-12); Blood Urea Nitrogen 14 mg/dL (7-17); Calcium 9.2 mg/dL (8.4-10.2); Carbon Dioxide 27 mmol/L (22-30); Chloride 105 mmol/L (98-107); Estimated Glomerular Filt Rate > 60; Glucose 145 mg/dL (65-110); Potassium 3.1 mmol/L (3.4-5.0); Sodium 142 mmol/L (137-145)
[2024-09-25 13:24] LABS: INR 1.1; Partial Thromboplastin Time 32.4 Seconds (22.3-36.8); Prothrombin Time 14.4 Seconds (11.1-14.7)
== END 2024-09-25 11:40 | disposition home or self-care (01) ==
LOC: ANHSURGERY 11:49
PROVIDERS: PCP Family Medicine; Visit Provider Neurological Surgery
DX: Z01.818 Encounter for other preprocedural examination (principal); M43.16 Spondylolisthesis, lumbar region; R94.31 Abnormal electrocardiogram [ECG] [EKG]
CPT/HCPCS: 36415; 71046; 80048; 81001; 85027; 85610; 85730; 93005

== ENCOUNTER 2024-10-11 00:17 | Day surgery (SDC) | payer MEDICARE, SELFPAY ==
[2024-09-25 12:07] VITALS: BP 149/60; PULSE 72; RESP 16; TEMP 36.8; O2SAT 98; BMI 27.7
--- NOTE | 2024-09-25 12:26 | PC.NURSE ---
Report to the Outpatient Waiting Room, entrance under the green pavilion located off [facility], at time __0600am on date __10/11/24 . Planned Procedure Time: 0730am .? Time changes happen often and if your time is changed the preop area will call you the afternoon before. - You and your visitor will be asked to self-screen and do not enter if you have any COVID symptoms. Please call surgeon if you need to reschedule. - A mask is optional within the hospital at this time. Patients may have clear liquids (water, carbonated beverages, clear teas, apple juice) until 3 hours prior to surgery with a maximum of 20 ounces. - No food from midnight until time of surgery and no smoking, or chewing tobacco (or any form of nicotine). No chewing gum, candy or mints.( 0430am) Take only the following medications with a SIP of water on the morning of surgery: Diltiazem, and Tylenol if needed DO NOT STOP ANY OF YOUR OTHER PRESCRIPTION MEDICATIONS PRIOR TO SURGERY EXCEPT THE FOLLOWING Hold all vitamins and supplements for 3 days per anesthesiologist.Date to take last dose is 10/07/24 Medications to discontinue per physician Aspirin and diclofenac both for 7 days prior Date to take last dose 10/03/24 Please no make-up, nail argentine, hairspray, perfume, deodorant, or body powder the day of surgery.? No jewelry (including any body piercings) or valuables the day of surgery, leave them at home.? Please take a shower or bath the night before, or the morning of, surgery with an antibacterial soap.? Wear comfortable, loose fitting clothing.? Hibicleanse scrub if needed. - Jewelry must be removed prior to entering the operating room.? Rings and piercings that are not removed may be cut off. - The hospital will not accept responsibility for valuables.? - Please leave all valuables, including medications, at home the day of surgery. If you are going home after surgery, a licensed pharmacy delivery driver must drive you home.? - NO public transportation without another adult if you receive anesthesia. - We recommend that an adult stay with you for 24 hours following discharge. - We also recommend that you do not drive, make important decision, drink alcoholic beverages, or take any drugs that were not prescribed by your health care provider for at least 24 hours after your discharge time. Follow any additional instructions given to you from your surgeon. Telephone instructions given to __Patient and asked if any additional questions and then verbalized understanding. Patient advised to call surgeon office or pre surgery nurse liaison [phone] if any additional questions.
[2024-10-11] VITALS (19 sets, daily range): BP systolic 123–166; BP diastolic 59–79; PULSE 79–100; RESP 12–19; TEMP 36.5–36.9; O2SAT 92–100; BMI 26.8
--- NOTE | ~2024-10-11 | XR_ITS ---
XR fluoroscopy no charge Indication: Lumbar fusion and decompression TECHNIQUE: Fluoroscopy used during lumbar fusion and decompression performed by [Marta smallwood MD] on 10/11/2024. 7 seconds of fluoroscopy with 4 fluoroscopic images captured. FINDINGS: Correlate with procedure note. IMPRESSION: Fluoroscopy used during lumbar fusion and decompression. Reviewed, dictated and finalized at location A.
--- OUTSIDE RECORDS SUMMARY | 2024-10-11 00:20 | XMS_ITS | Clinical Summary ---
Author Organization [facility] Address [address] [place] [address] Care Team Providers Care Abap Developer Name Role Phone Octavio Crowley MD Primary Care Provider [phone]- [phone] Allergies Active Allergy Reactions Criticality Noted Date [...] often do you attend chur ch or restoration services? 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 Gender Identity Not on file Sexual Orientation [...] 9:38 AM CDT Height 157.5 cm (5' 2.01) 02/28/2021 9:38 AM CD T Body Mass [...] 02/11/2017, 03/02/2013 Medical Devices Implanted Type Area Molded Goods Embossing Press Operator Device Identifier Shelf Expiration Date Model / Serial / Lot Medtronic Sofpayworks [place] [id number] Infuse 14mm 23mm Absorbable Sponge Sterile Water Syringe Needle - [id number] Implanted:Qty: 1 on 03/05/2020 by Keith Mack MD at [facility] Spine Lumbar Medtronic Inc 01/07/2021 [id number] / / [id number] [email or web address] Janine Dp-1011 Duragen Plus 1x1in Patch Resorbable Suturable Cranial Dura Graft - [id number] Implanted:Qty: 1 on 03/05/2020 by Keith Mack MD at [facility] Spine Lumbar Integra Lifesciences Janine 09/06/2022 DP-1011 / / [id number] Nuvasive Creative Spine Tech [id number] Modulus [id number] 10d Xl Cage Spinal Sterile Latex Free - [id number] Implanted:Qty: 1 on 03/05/2020 by Keith Mack MD at [facility] Spine Lumbar Nuvasive Inc 01/11/2024 [id number] / / [id number] Spinal Graft Tech [id number] [place] Putty Jar Graft 5cc Bone Demineralized Bone Matrix - [id number] - [id number] Implanted:Qty: 1 on 03/05/2020 by Keith Mack MD at [facility] Spine Lumbar Spinal Graft Tech 12/17/2022 [id number] / [id number] / Nuvasive Creative Spine Tech [id number] Modulus [id number] 10d Xl Cage Spinal Sterile Latex Free - [id number] Implanted:Qty: 1 on 03/05/2020 by Keith Mack MD at [facility] Spine Lumbar Nuvasive Inc 08/22/2024 [id number] / / [id number] K2m Llc 2901-47658 [place] Spine Screw Set Crow - [id number] Implanted:Qty: 6 on 03/05/2020 by Keith Mack MD at [facility] Spine Lumbar [place] Spine [id number] / / K2m Llc 2911-88016 [place] Od6.5 Mm L40 Mm Polyaxial Spine Screw Bone - [id number] Implanted:Qty: 2 on 03/05/2020 by Keith Mack MD at [facility] Spine Lumbar [place] Spine [id number] / / K2m Llc 2911-63192 [place] Od6.5 Mm L45 Mm Polyaxial Spine Screw Bone - [id number] Implanted:Qty: 4 on 03/05/2020 by Keith Mack MD at [facility] Spine Lumbar [place] Spine [id number] / / K2m Llc [id number] Od5.5 Mm L65 Mm Contour Curved; Contour Charlie Spinal Crow - [id number] Implanted:Qty: 2 on 03/05/2020 by Keith Mack MD at [facility] Spine Lumbar [place] Spine [id number] / / Spinal Graft Tech [id number] [place] Putty Jar Graft 5cc Bone Demineralized Bone Matrix - [id number] - [id number] Implanted:Qty: 1 on 03/05/2020 by Keith Mack MD at [facility] Spine Lumbar Spinal Graft Tech 09/11/2022 [id number] / [id number] / Procedures Procedure Name Priority Date/Time Associated Diagnosis Comments COLONOSCOPY 07/26/2018 8:56 AM CDT from Last 3 Months or Most Recently Relevant to Health Maintenance Results * COLONOSCOPY (07/26/2018 8:56 AM CDT) Anatomical Region Laterality Modality Other Narrative Procedure Note Pippa Mei MD - 07/26/2018 8:56 AM CDT [facility] Patient Name: Mariana Gutiérrez Procedure [...] by the physician, the nurse and the oven roaster in the procedure room. Mental Status Examination: [...] passedunder direct vision. The Colonoscope CF-Q180 [place] [id number] introduced through the anus and advanced to [...] not recommended. Procedure Code(s): --- Professional --- 13764, Colonoscopy, flexible; with biopsy, single or multiple Diagnosis Code(s): --- Professional --- K63.89, Other specified diseases of intestine K64.8, Other hemorrhoids K92.1, Melena (includes Hematochezia) K57.30, Diverticulosis of large intestine without perforation or abscess without bleeding CPT copyright 2017 [place] [employer]. All rights reserved. The codes documented in this report are preliminary and upon financial operations consultant reviewmay be revised to meet current compliance requirements. Electronically signed by Pippa Mei M.D. Pippa Mei M.D. 07/26/2018 9:30:08 AM Number of Addenda: 0 Note Initiated On: 07/26/2018 8:56 AM Pippa Mei MD ENDOSCOPY PROCEDURES Fi nal Result from Last 3 Months or Most Recently Relevant to Health Maintenance [facility] REF [place] [id number] [facility] HMO REF [place] [id number] [facility]CR HMO REF Advance Directives For more information, please contact: [phone] * Full Code (Latest Code Status on File) Date Activated Date Inactivated Comments 03/05/2020 4:36 PM 03/10/2020 1:46 AM Care Teams Abap Developer Relationship Specialty Start Date End Date Octavio Crowley MD [facility] [place] [address] PCP - General Family Medicine 12/14/19
--- OUTSIDE RECORDS SUMMARY | 2024-10-11 00:20 | XMS_ITS | CONTINUITY OF CARE DOCUMENT ---
Author Name shirajustice vamsikeon Address Unknown Organization [facility] Address [address] [address] [place] [address] Phone [phone] Care Team Providers Care Claims Adjustor Name Role Phone Claude Daniel MD Unavailable [phone] SANJIV ISAACS Unavailable PROBLEMS Condition Status Date Provider Notes Essential hypertension active Claude Daniel MD Dyslipidemia active Claude Daniel MD Sleep apnea active Claude Daniel MD Chest pain active Claude Daniel MD Cardiology examination active Claude aDniel MD Localized swelling on legs, bilateral active 8 Claude Daniel MD ENCOUNTERS Date Type Provider Location Encounter Diag nosis - In-person encounter Office Visit Claude Daniel MD Restoration Office Essential hypertensionDyslipidemiaSleep apneaChest painCardiology examinationLocalized swelling [...] Payer name Policy type / Coverage type [place] red green party ID AARP MEDICARE ADVANTAGE HMO-POS HMO [id number] ADVANCE DIRECTIVES Name Date DISCUSSED - NO DECISION MADE TREATMENT PLAN Date Name Performer [id number],NClaude MD [id number],S, Claude griffin MD [id number],S, Claude griffin MD [id number],W, Claude griffin MD [id number],NClaude MD Cardiology Claude Daniel MD Cardiology Claude [...]
--- OUTSIDE RECORDS SUMMARY | 2024-10-11 00:20 | XMS_ITS | Referral Summary ---
Author Organization [facility] Address [address] [place] [id number] Care Team Providers Care Fluid Jet Cutter Operator Name Role Phone Octavio Crowley MD Primary Care Provider [phone]- [phone] Allergies Active Allergy Reactions Criticality Noted Date [...] How often do you attend chur or bahai services? 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 Gender Identity Not on file Sexual Orientation [...] on file Medical Devices Implanted Type Area Precision Inspector Device Identifier Shelf Expiration Date Model / Serial / Lot Medtronic Sofofelia [place] [id number] Infuse 14mm 23mm Absorbable Sponge Sterile Water Syringe Needle - [id number] Implanted:Qty: 1 on 03/05/2020 by Keith Mack MD at [facility] Spine Lumbar Medtronic Inc 01/07/2021 [id number] / / [id number] Xinguodua Jack On Blockciences Janine Dp-1011 Duragen Plus 1x1in Patch Resorbable Suturable Cranial Dura Graft - [id number] Implanted:Qty: 1 on 03/05/2020 by Keith Mack MD at [facility] Spine Lumbar Integra Lifesciences Janine 09/06/2022 DP-1011 / / [id number] Nuvasive Creative Spine Tech [id number] Modulus [id number] 10d Xl Cage Spinal Sterile Latex Free - [id number] Implanted:Qty: 1 on 03/05/2020 by Keith Mack MD at [facility] Spine Lumbar Nuvasive Inc 01/11/2024 [id number] / / [id number] Spinal Graft Tech [id number] [place] Putty Jar Graft 5cc Bone Demineralized Bone Matrix - [id number] - [id number] Implanted:Qty: 1 on 03/05/2020 by Keith Mack MD at [facility] Spine Lumbar Spinal Graft Tech 12/17/2022 [id number] / [id number] / Nuvasive Creative Spine Tech [id number] Modulus [id number] 10d Xl Cage Spinal Sterile Latex Free - [id number] Implanted:Qty: 1 on 03/05/2020 by Keith Mack MD at [facility] Spine Lumbar Nuvasive Inc 08/22/2024 [id number] / / [id number] K2m Llc 2901-77807 [place] Spine Screw Set Crow - [id number] Implanted:Qty: 6 on 03/05/2020 by Keith Mack MD at [facility] Spine Lumbar [place] Spine [id number] / / K2m Llc 2911-51231 [place] Od6.5 Mm L40 Mm Polyaxial Spine Screw Bone - [id number] Implanted:Qty: 2 on 03/05/2020 by Keith Mack MD at [facility] Spine Lumbar [place] Spine [id number] / / K2m Llc 2911-94549 [place] Od6.5 Mm L45 Mm Polyaxial Spine Screw Bone - [id number] Implanted:Qty: 4 on 03/05/2020 by Keith Mack MD at [facility] Spine Lumbar [place] Spine [id number] / / K2m Llc [id number] Od5.5 Mm L65 Mm Contour Curved; Contour Charlie Spinal Crow - [id number] Implanted:Qty: 2 on 03/05/2020 by Keith Mack MD at [facility] Spine Lumbar [place] Spine [id number] / / Spinal Graft Tech [id number] [place] Putty Jar Graft 5cc Bone Demineralized Bone Matrix - [id number] - [id number] Implanted:Qty: 1 on 03/05/2020 by Keith Mack MD at [facility] Spine Lumbar Spinal Graft Tech 09/11/2022 [id number] / [id number] / Procedures Procedure Name Priority Date/Time Associated Diagnosis Comments COLONOSCOPY 07/26/2018 8:56 AM CDT from Last 3 Months or Most Recently Relevant to Health Maintenance Results * COLONOSCOPY (07/26/2018 8:56 AM CDT) Anatomical Region Laterality Modality Other Narrative Procedure Note Pippa Mei MD - 07/26/2018 8:56 AM CDT [facility] Patient Name: Mariana Gutiérrez [...] by the physician, the nurse and the dry cleaner presser in the procedure room. Mental Status Examination: [...] passedunder direct vision. The Colonoscope CF-Q180 [place] [id number] introduced through the anus and advanced to [...] not recommended. Procedure Code(s): --- Professional --- 05844, Colonoscopy, flexible; with biopsy, single or multiple Diagnosis Code(s): --- Professional --- K63.89, Other specified diseases of intestine K64.8, Other hemorrhoids K92.1, Melena (includes Hematochezia) K57.30, Diverticulosis of large intestine without perforation or abscess without bleeding CPT copyright 2017 [place] [employer]. All rights reserved. The codes documented in this report are preliminary and upon broadcast transmitter operator reviewmay be revised to meet current compliance requirements. Electronically signed by Pippa Mei M.D. Pippa Mei M.D. 07/26/2018 9:30:08 AM Number of Addenda: 0 Note Initiated On: 07/26/2018 8:56 AM Pippa Mei MD ENDOSCOPY PROCEDURES Fi nal Result from Last 3 Months or Most Recently Relevant to Health Maintenance [facility] HMO REF [id number] [place] [address] HMO REF [facility] MDCR HMO REF Advance Directives For more information, please contact: [phone] * Full Code (Latest Code Status on File) Date Activated Date Inactivated Comments 03/05/2020 4:36 PM 03/10/2020 1:46 AM Care Teams Fluid Jet Cutter Operator Relationship Specialty Start Date End Date Octavio Crowley MD [address] [place] [address] [place] [address] PCP - General Family Medicine 12/14/19
--- OUTSIDE RECORDS SUMMARY | 2024-10-11 00:21 | XMS_ITS | Data Portability ---
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 Plan of Treatment Reminders Order Date Submit Date Provider Last Modified By Organization Details Last Modified Time Details Appointments None recorded. Lab biopsy, skin - Left forearm lesion 2022 023 [facility] ([facility] [address] [place], [address], 3 10:47:24 Referral cardiologis t referral - 77 y/o chest pains , as irritable bowel and bloating with constipatio n. Has costal chondritis . But Please evaluate her and treat prn . Thank you . Has a longstandin g heart murmur. 2022 023 [email or web address] 3 [place], [address] [address] , [facility] [address], [address], 3 09:26:39 gastroenter ologist referral 2022 023 NELLA Diaz MD, [address] [facility] 162, [facility] [address], [place], [address], 3 16:29:57 Procedures None recorded. Surgeries None recorded. Imaging None recorded. Medication Orders ciprofloxac in 500 mg tablet 2023 024 [facility] 1761, [address] [place] [address], [address], 4 09:19:44 benazepril 40 mg tablet 2023 024 [facility] [address], [address] [place] [address], [address], 4 09:16:41 ciprofloxac in 500 mg tablet 2022 023 [facility] [address], [address] [place] [address], [address], 3 12:56:05 ibuprofen 600 mg tablet 2022 023 [facility] 176, [address] [place] [address], [address], 3 10:40:29 sucralfate 1 gram tablet 2022 023 [facility] [address], [address] [place] [address], [address], 3 10:14:18 ibuprofen 600 mg tablet 2022 023 [facility] [address], [address] [place] [address], [address], 3 10:17:44 Patient TargetsNo targets recorded. Patient Instructions Encounter Date Encounter Id Patient Instructions Last Modified By Organization Details Last Modified Time 12/04/2022 [id number] reinforced her instinct to call the paramedics . Take an extra baby aspirin anytime when chest pain occurs . 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 Page 1 of 2 [facility] Name[facility] SHELLY OLIVAREZ Access ion #: [id number] Sex: F : 1944 8 Exam [...] report ed prompt ly to the [facility] er. A negati ve [...] 1:40 PM (CT) Page 2 of [address] (Imaging) [address] [place], [address], 11/02/2022 15:16:51 11/03/19 23 11/02/2022 MAMMO , scree hui, bilat eral No observ ation record ed. [address] [place], [address], 11/02/2022 15:16:51 06/07/19 24 06/07/2023 XR, hand, 3 or more view No observ ation record ed. [email or web address] [facility] [address] [place], [address], 06/08/2023 12:19:19 Result Notes None recorded. Problems Name Problem SNOMED Code Status Onset Date Resolution Date Notes Provider Name and Address Organization Details Recorded Time Irritable bowel syndrome 11474937 Active 2018 Not Available [facility] 3 06:44:40 Acquired trigger finger 9465414 Active 2018 Not Available [facility] 3 06:44:40 Acute sinusitis 21694081 Completed Not Available [facility] 3 05:59:02 Otalgia 28281961 Active 2018 Not Available [facility] 3 06:44:40 Mammograph y abnormal 259650943 Completed Not Available [facility] 3 05:59:02 Radiothera py follow-up 717970462 Active Not Available [facility] 3 06:44:40 Prolapsed lumbar interverte bral disc 959082769 Active 2021 Not Available [facility] 3 06:44:40 Abdominal pain 98880684 Completed Not Available [facility] 3 05:59:02 Gastroesop hageal reflux disease 125434541 Active Not Available [facility] 3 06:44:40 Chronic constipati on 014559090 Active 2018 Not Available [facility] 3 06:44:40 Low back pain 809679293 Active 2018 Not Available [facility] 3 06:44:41 Painless rectal bleeding 446064821 Active 2018 Not Available [facility] 3 06:44:41 Anxiety 31523851 Active Not Available [facility] 3 06:44:41 Hyperlipid emia 43890811 Active Not Available [facility] 3 06:44:41 Essential hypertensi on 30852771 Active Not Available [facility] 3 06:44:41 Obstructiv e sleep apnea syndrome 02263807 Active 2018 Not Available [facility] 3 06:44:41 Epigastric pain 20661470 Completed Not Available [facility] 3 05:59:03 Chronic rhinitis 68659439 Active Not Available [facility] 3 06:44:41 Skin lesion 01768041 Completed Octavio Crowley MD [address], [place], [address] , [employer] 3 10:11:14 Bilateral cataracts 31616316 Completed 201807/04/2018 Not Available [facility] 3 05:59:03 Esophageal dysphagia 73622310 Active 2022 Not Available [facility] 3 06:44:41 Chronic low back pain 412404285 Active 2022 Not Available [facility] 3 06:44:40 Constipati on 28333640 Active 2022 Not Available [facility] 3 06:44:40 Costal chondritis 89694612 Active 2022 Not Available [facility] 3 06:44:41 Chest pain 98622065 Active 2022 Not Available [facility] 3 06:44:41 Skin lesion 25397631 Active 2022 Not Available [facility] 3 06:44:41 Squamous cell carcinoma of skin 794202954 Active 2022 Not Available [facility] 3 06:44:40 Sinusitis 06956986 Active 2022 KIERA Washington [address], [place], [address] , [employer] 3 12:54:53 Administra tion of influenza vaccine Active 2022 KIERA Washington [address], [place], [address] , [employer] 3 12:58:59 Problem Notes None recorded. Procedures Surgical History Date Name Laterality Status Provider Name and Address Organization Details Recorded Time 01/30/20 23 Shave Biopsy completed Octavio Crowley MD [address], [place], [address], [employer] 01/29/2023 18:25:55 Back Surgeries completed Not Available [facility] 07/08/2022 05:53:55 Breast Biopsy completed Not Available [facility] 07/08/2022 05:53:55 Cataract Surgery completed Not Available [facility] 07/08/2022 05:53:55 Cholecystectomy completed Not Available [facility] 07/08/2022 05:53:55 Hysterectomy completed Not Available [facility] 07/08/2022 05:53:55 Hemorrhoidectomy completed Not Available [facility] 07/08/2022 05:53:55 procedure on skin completed EZRA [place] [facility] [employer] 05/14/2023 09:05:10 Imaging Results None recorded. Procedure Notes None recorded. Medical Equipment None Reported. Allergies Allergen ID Allergen Name Allergen Category Reaction Reaction Severity Criticality Documentation Date Start Date Code Code System Note Provider Name and Address Organization Details Recorded Time 85339 Toradol medicatio n Not available Not available Not available 07/08/2022 36307 RxNorm Not Available [facility] 3 06:05:25 57414 adhesive environme nt,medica tion Not available Not available Not available 07/08/2022 87816 UNK Not Available [facility] 3 06:05:25 Medications Name Sig Start Date Stop [...] completed Not Available Not Available Not Available [facility] 3 02/04 completed Not Available Not Available [...] Available Not Available Not Available Fluzone High-Dose 9168-9567 (PF) 180 mcg/0.5 mL intramuscu lar syringe active Not Available Not Available Not Available Fluzone High-Dose 2013- (PF) 180 mcg/0.5 mL intramuscu lar syringe active Not Available Not Available Not Available Flonase Allergy Relief 02/04 completed Not Available Not Available Not Available Fluzone High-Dose 2014- (PF) 180 mcg/0.5 mL intramuscu lar syringe [...] Updated DateTime 4 157.48 cm 28 kg/m2 57177.6 3 g 97.3 [degF] 74 /min 97 % 97 % 162 mm[Hg] 90 mm[Hg] EZRA Chacon [facility] [employer] 4 09:03:56 Date Recorded Body height Body mass index (BMI) Body weight Body temperature Heart rate Oxygen saturation Oxygen saturation in Arterial blood by Pulse oximetry Systolic blood pressure Diastolic blood pressure Provider Name and Address Organization Details Last Updated DateTime 3 157.48 cm 28.2 kg/m2 67181.2 2 g 97.3 [degF] 85 /min 95 % 95 % 148 mm[Hg] 82 mm[Hg] EZRA Chacon [facility] [employer] [facility] 3 10:23:10 Date Recorded Body height Body mass index (BMI) Body weight Body temperature Heart rate Oxygen saturation Oxygen saturation in Arterial blood by Pulse oximetry Systolic blood pressure Diastolic blood pressure Provider Name and Address Organization Details Last Updated DateTime 3 157.48 cm 27.8 kg/m2 79364.0 4 g 98.1 [degF] 94 /min 96 % 96 % 162 mm[Hg] 84 mm[Hg] Leighann Longoria [place] [employer] [facility] [employer] 3 10:01:33 Date Recorded Body height Body mass index (BMI) Body weight Body temperature Heart rate Oxygen saturation Oxygen saturation in Arterial blood by Pulse oximetry Systolic blood pressure Diastolic blood pressure Provider Name and Address Organization Details Last Updated DateTime 3 157.48 cm 28 kg/m2 52554.6 3 g 97.2 [degF] 81 /min 98 % 98 % 144 mm[Hg] 82 mm[Hg] Belgica castaneda CMA [facility] [employer] [facility] 3 09:54:33 Date Recorded Body height Body mass index (BMI) Body weight Body temperature Heart rate Oxygen saturation Oxygen saturation in Arterial blood by Pulse oximetry Systolic blood pressure Diastolic blood pressure Provider Name and Address Organization Details Last Updated DateTime 3 157.48 cm 28.5 kg/m2 85786.4 1 g 97.5 [degF] 76 /min 96 % 96 % 146 mm[Hg] 84 mm[Hg] Leighann Longoria MA [facility] [employer] [facility] 3 12:42:52 Social History Question Answer Notes LastModified by Organizat ion Details LastModified Time Tobacco Smoking Status Never Smoker Not Available [facility] 07/08/2022 05:53:22 Do You Have An Advance Directive? Yes MIGRATION. Information not available 07/08/2022 Do You Wear A Helmet When Biking? Yes MIGRATION. 57888 Information not available 07/08/2022 Are You Blind Or Do You Have Difficulty Seeing? No MIGRATION. 34807 Information not available 07/08/2022 What Is Your Level Of Caffeine Consumption? None MIGRATION. 68641 Information not available 07/08/2022 In The 14 Days Before Symptom Onset, Have You Had Close Contact With A Laboratory-confir med COVID-19 While That Case Was Ill? No MIGRATION. 28424 Information not available 07/08/2022 In The 14 Days Before Symptom Onset, Have You Had Close Contact With A Person Who Is Under Investigation For COVID-19 While That Person Was Ill? No MIGRATION. 17346 Information not available 07/08/2022 Are You Deaf Or Do You Have Serious Difficulty Hearing? No MIGRATION.34754 43720 Information not available 07/08/2022 What Type Of Diet Are You Following? REGULAR MIGRATION.16334 40114 Information not available 07/08/2022 Have There Been Any Changes To Your Family Or Social Situation? No MIGRATION.42155 21499 Information not available 07/08/2022 Do You Use Insect Repellent Routinely? Yes MIGRATION.33686 78160 Information not available 07/08/2022 Where Do You Live? [place] MIGRATION.98336 13920 Information not available 07/08/2022 Do You Have A Medical Power Of [place] Cutter? Yes MIGRATION.13448 29459 Information not available 07/08/2022 What Was The Date Of Your Most Recent Tobacco Screening? 02/04/2021 MIGRATION.70060 00167 Information not available 07/08/2022 Do You Have Any Pets? Yes MIGRATION.20168 01311 Information not available 07/08/2022 What Is Your Relationship Status? MIGRATION.73751 23357 Information not available 07/08/2022 Do You Use Your Seat Belt Or Car Seat Routinely? Yes MIGRATION.31924 48484 Information not available 07/08/2022 Do You Have Smoke And Carbon Monoxide Detectors In Your Home? Yes MIGRATION.79899 98055 Information not available 07/08/2022 Are You Passively Exposed To Smoke? No MIGRATION.08805 55184 Information not available 07/08/2022 Are There Any Smokers In Your House? No MIGRATION.20867 16311 Information not available 07/08/2022 Do You Participate In Social Media? No MIGRATION.08608 58124 Information not available 07/08/2022 Do You Use Sunscreen Routinely? Yes MIGRATION.81205 55254 Information not available 07/08/2022 Has Tobacco Cessation Counseling Been Provided? No MIGRATION.49302 84936 Information not available 07/08/2022 Have You Recently Traveled Abroad? No MIGRATION.12590 01729 Information not available 07/08/2022 Do You Have Difficulty Walking Or Climbing Stairs? No MIGRATION.28869 66480 Information not available 07/08/2022 Are You Currently In School? No MIGRATION.51789 93824 Information not available 07/08/2022 Do You Have Any Dietary Restrictions? No MIGRATION.32383 53426 Information not available 07/08/2022 Sex: Unknown Functional Status Question Answer Note LastModified by Endra Details LastModified Time Do you use any illicit or recreational drugs? No MIGRATION.9239343 026 Information not available 07/08/2022 Do you or have you ever used any other forms of tobacco or nicotine? No MIGRATION.2245481 026 Information not available 07/08/2022 What is your level of alcohol consumption? None MIGRATION.4642861 026 Information not available 07/08/2022 Do you have transportation difficulties? No MIGRATION.3087181 026 Information not available 07/08/2022 Are you able to walk? YESWOREST MIGRATION.8562710 026 Information not available 07/08/2022 Do you have difficulty doing errands alone? No MIGRATION.1627611 026 Information not available 07/08/2022 Are you able to care for yourself? 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 RETIRED MIGRATION.5662436 026 Information not available 07/08/2022 Do you have difficulty dressing or bathing? No MIGRATION.2938202 026 Information not available 07/08/2022 What is your exercise level? Occasional MIGRATION.7964917 026 Information not available 07/08/2022 Mental Status Question Answer Note LastModified by [email or web address] Details LastModified Time Do you feel stressed (tense, restless, nervous, or anxious, or unable to sleep at night)? [id number] MIGRATION.33879344 26 Information not available 07/08/2022 Do you have difficulty concentrating, remembering or making decisions? No MIGRATION.74095340 26 Information not available 07/08/2022 Family History Relationship Description Onset Age of this Age Resolved Age Notes LastModified by Organization Details LastModified Time Father Diabetes mellitus MIGRATION.826 [id number] Not available 07/08/2022 05:53:55 Father Heart disease MIGRATION.474 8330324 Not available 07/08/2022 05:53:55 Father Hypertensive disorder MIGRATION.348 2255253 Not available 07/08/2022 05:53:55 Sister Diabetes mellitus MIGRATION.450 1330939 Not available 07/08/2022 05:53:55 Sister Heart disease MIGRATION.196 4893396 Not available 07/08/2022 05:53:55 Sister Hypertensive disorder MIGRATION.193 6972890 Not available 07/08/2022 05:53:55 Medical History Condition Response HYPERTENSION Y Gynecological HistoryNo gynecological history recorded. Obstetrics History GPAL:G 0 P 0 0 0 0 Immunizations Vaccine Type Date Status Note Provider Nam e and Address Organization Details Recorded Time Influenza, high-dose, trivalent, PF 5 completed Not Available [facility] 02/05/2023 06:44:41 Influenza, high-dose, trivalent, PF 3 completed Not Available [facility] 02/05/2023 06:44:41 pneumococcal polysaccharide PPV23 3 completed Not Available [facility] 02/05/2023 06:44:41 herpes simplex 2 3 completed Not Available [facility] 02/05/2023 06:44:41 Influenza, high-dose, quadrivalent, PF 2 completed Not Available [facility] 02/05/2023 06:44:41 Influenza, high-dose, quadrivalent, PF 1 completed Not Available [facility] 02/05/2023 06:44:41 Pneumococcal conjugate PCV 13 1 completed Not Available [facility] 02/05/2023 06:44:41 Tdap 5 completed Not Available [facility] 02/05/2023 06:44:41 Influenza, high-dose, quadrivalent, PF 3 completed KIERA Washington [address] [place] [address], [place], [address], [facility] [employer] [facility] 04/09/2023 10:34:28 Past Encounters Encounter ID Performer Location Encounter Start Date Encounter Closed Date Diagnosis/Indication Diagnosis SNOMED-CT Code Diagnosis ICD10 Code Diagnosis Note [id number] Octavio Crowley MD [facility] [address] [place] [address] 02/04/2021 00:00:00 02/04/2021 21:54:49 [id number] Octavio Crowley MD [facility] [address] [place] [address] 07/21/2021 00:00:00 07/21/2021 21:33:26 [id number] MD FLORENCIO Lozano_AKUA [facility] [address] [place] [address] 07/29/2021 00:00:00 07/29/2021 16:08:49 [id number] Octavio Crowley MD [facility] [place] [address] [place] [address] 08/04/2021 00:00:00 08/05/2021 08:19:56 [id number] Donta Germain MD Chaim_AKUA [address] [address] 08/26/2021 00:00:00 08/26/2021 15:07:38 [id number] MD FLORENCIO Castorena[facility] [address] [place] [address] 09/16/2021 00:00:00 09/16/2021 19:38:37 [id number] Octavio Crowley MD [facility] [place] [address] [place] [address] 10/30/2021 00:00:00 10/30/2021 22:13:12 [id number] Donta Germain MD [facility] [address] [place] [address] 12/16/2021 00:00:00 12/16/2021 14:19:01 [id number] Octavio Crowley MD [facility] [address] [place] [address] 02/25/2022 00:00:00 02/25/2022 19:06:38 [id number] Octavio Crowley MD [facility] [address] [place] [address] 10/01/2022 10:09:45 10/01/2022 10:46:49 Esophageal dysphagia 22938208 R13.19 Chronic low back pain 27 5025076 M54.50 Continue tylenol arthritis routinely. May take aleve as needed. Constipation 04545764 K5 9.00 Use miralax as needed. I told pt. that tylenol is not constipati ng and can take it routinely [id number] Octavio Crowley MD [facility] [place] [address] 12/04/2022 09:45:45 12/04/2022 10:39:43 Irritable bowel syndrome 29587285 K58.9 Chronic constipation 236 033995 K59.09 Essential hypertension 97907341 I10 Hyperlipidemia 60459268 E78.5 Costal chondritis 711179 04 M94.0 Prolapsed lumbar intervertebral disc 549291949 M51.26 Chest pain 09446440 R07. 9 Anxiety 94982591 F41.9 Esophageal dysphagia 408 94511 R13.19 Gastroesop hageal reflux disease 784480987 K21.00 [id number] Octavio Crowley MD [facility] [address] [address] 01/29/2023 09:48:40 01/29/2023 10:25:25 Skin lesion 19965524 L98.9 Shave Bx done. Will notify pt of results [id number] Octavio Crowley MD [facility] [place] [facility] [place] [address] 04/06/2023 12:26:28 04/06/2023 13:10:58 Sinusitis 44384199 J32.9 Administra tion of influenza vaccine 03753009 Z23 Costal chondritis 067346 04 M94.0 [id number] Octavio Crowley MD [facility] [address] [place] [address] 05/14/2023 08:52:22 05/14/2023 09:24:46 Essential hypertension 80326579 I10 Sinusitis 61736368 J32.9 Anxiety 12398809 F41.9 Chronic low back pain 27 9543919 M54.50 Gastroesop hageal reflux disease 423030683 K21.00 Hyperlipidemia 53652866 E78.5 Prolapsed lumbar intervertebral disc 717996115 M51.26 Health Concerns Section Related Observation LastModified by Organization Detai ls LastModified Time None Recorded Concern Status LastModified by Organization Details LastModified Time None Recorded Advance Directives Directive Y: Payers Encounter Date Sequence Insurance Name Policy Number Policy Baker Covered Member ID Baker Member ID Guarantor Name 10/01/2022 1 [facility] (MEDICARE REPLACEMENT/A DVANTAGE - HMO) [id number] Mariana Gutiérrez [id number] Mariana Gutiérrez 12/04/2022 1 [facility] (MEDICARE REPLACEMENT/A DVANTAGE - HMO) [id number] Mariana Gutiérrez [id number] Mariana Gutiérrez 01/29/2023 1 [facility] (MEDICARE REPLACEMENT/A DVANTAGE - HMO) [id number] Mariana Gutiérrez [id number] Mariana Gutiérrez 04/06/2023 1 [facility] (MEDICARE REPLACEMENT/A DVANTAGE - HMO) [id number] Mariana Gutiérrez [id number] Mariana Gutiérrez 05/14/2023 1 [facility] (MEDICARE REPLACEMENT/A DVANTAGE - HMO) [id number] Mariana Gutiérrez [id number] Mariana Gutiérrez Notes Date Note Type Note [...] does not take NSAIDs. Octavio Crowley MD [address] [place] [address], [facility] [address], [place], [address], [facility] [employer] 10/01/2022 20:31:19 12/04/2022 text/html she was having a lot of belching and chest discomfort last nigh . Had spaghetti at lunch . She was close to calling the paramedics , when it subsided enough to go to sleep KIERA Washington [address], [place], [address], [facility] [employer] [facility] 12/06/2022 10:27:57 01/29/2023 text/html Has a lesion on left arm. When brushes over it it is tender. Tried antibx ointment and no help. There is fmhx of skin cancers. Has noticed this x 1 month. It has gotten bigger. No other issues. Octavio Crowley MD [address], [place], [address], [facility] [employer] [facility] 01/29/2023 18:26:24 04/06/2023 text/html EARS HURTING , FEEL FULL , NO FEVER KIERA Washington [address], [place], [address], [employer] [facility] [employer] [facility] 04/09/2023 10:40:32 05/14/2023 text/html toes tingle , hands weak, had Covid before Laquita, sinus pressure , no fever , last few days KIERA Washington [address], [place], [address], [facility] [employer] [facility] 05/16/2023 13:07:09 OBGyn Episode No OBEpisode recorded.
--- OUTSIDE RECORDS SUMMARY | 2024-10-11 00:21 | XMS_ITS | Continuity of Care Document ---
Author Organization [facility] Address [id number] [place] [address] [place] [address] Phone Care Team Providers Care Steel Tester Name Role Phone Issac Calhoun DO Unavailable Unavailable Advance Directives Directive Yes / No Effective Date File Name No Information Encounters Encounter Description Practice Location Reason(s) For Visit Diagnoses Date Provider Providers Copied on Encounter [facility], [id number] [place] [address] [address], [place], [place], [id number], [place] tel:[phone] [facility] No Information [facility]. [address] [facility], [place], [address], [place]. tel: [phone] Family History Family Member Type Diagnosis Age At Onset No Information Payers Payer name Insurance type Covered green party ID Authoriza tiruss(s) [facility] Commercial CI [id number] Social History Type Description Quantity Date Captured [...]
[2024-10-11] MEDS: LACTATED RINGERS 1,000 ML 30 ML IV CONT ×2 (06:45→11:07)
--- NOTE | 2024-10-11 07:25 | P.HP_ITS ---
H&P: HPI History of Present Illness Date/Time: 10/11/24 07:25 Chief Complaint: back and leg pain Narrative: Ms. Gutiérrez is a 79-year-old female with history of hypertension, heart murmur, osteoarthritis, and previous L3-5 fusion who returns for scheduled follow-up of her low back and leg pain. She underwent an L3-[address] Mack at [facility] for preoperative back pain. This was done through a lateral and posterior approach. She did well for about a year but developed some recurrent back pain. She had an MRI in 2020 at which time she was told that another disc had given out. She underwent physical therapy and had 2 injections through pain management physician in [place] 2 years ago, neither of which were helpful for her. She describes pain across the belt line of her lower back that worsens with standing in [address] for length of time or walking. She also has pain that starts in the backs of the knees and can radiate into proximal thighs with standing and walking. She does not have any pain at rest when she is able to recline. She denies any numbness or weakness in her legs. She recently saw a breadman who placed her on hydroxychloroquine, prednisone, tramadol, and Tylenol. She has found the prednisone to be very helpful, but it causes her to constantly eat, so she does not like to take it. Over the last few months, her back and leg pain has progressed to the point that it is preventing her from sleeping or doing any physical activities. Her leg pain is more bothersome than her back pain. She did a recent course of physical therapy but had to stop early, partially due to cost and partially because the exercises could be done at home. She has not been inclined to pursue any epidural steroid injections because these were not helpful for her in the past. Review of Systems Review of Systems: All systems reviewed & are unremarkable except as noted in HPI and below PMFSH Past Medical History Medical History History of skin cancer Allergies Osteoporosis Melanosis coli Colon cancer screening Sleep apnea HLD (hyperlipidemia) Hypertension History of hemorrhoids Chronic constipation GERD (gastroesophageal reflux disease) Dysphagia Family History Family History Father Diabetes mellitus Hypertension Heart disease Sibling Diabetes mellitus Hypertension Heart disease Breast cancer Social History Social History Smoking status: Never smoker Alcohol intake: never Substance use: never Substance use type: does not use Do You Feel Safe in your Home?: Yes Lack of Transportation: No Lack of Food: Never True Current Housing: I Have Housing Concerned About Future Housing: No Difficulty Paying Gas/Electric Bills: No Difficulty Paying for Meds: No Currently Unemployed: Decline to Answer Education: High School Diploma/GED Difficulty w/ Childcare or Family Care: No Living arrangements: with family Spiritual care concerns: No Meds Home Medications and Allergies Home Medications ?Medication ?Instructions ?Recorded ?Confirmed ?Type ascorbate calcium (vitamin C) 500 500 mg PO DAILY 10/15/22 09/25/24 History mg tablet aspirin 81 mg tablet,delayed 81 mg PO DAILY 10/15/22 09/25/24 History release (Adult Aspirin Regimen) cetirizine 10 mg disintegrating 10 mg PO DAILY 10/15/22 09/25/24 History tablet (Children's Zyrtec Allergy) gabapentin 300 mg capsule 300 mg PO BID 10/15/22 09/25/24 History acetaminophen 650 mg 650 mg PO Q8H PRN Mild Pain (Scale 10/19/22 09/25/24 History tablet,extended release Score 1-4) diltiazem HCl 240 mg 240 mg PO DAILY 10/19/22 10/11/24 History capsule,extended release 24 hr hydrochlorothiazide 25 mg tablet 25 mg PO DAILY 10/19/22 09/25/24 History montelukast 10 mg tablet 10 mg PO PRN PRN Allergy Symptoms 10/19/22 09/25/24 History benazepril 40 mg tablet 40 mg PO DAILY 02/10/24 09/25/24 History famotidine 20 mg tablet 20 mg PO DAILY 02/10/24 09/25/24 History multivitamin 1 tablet PO DAILY 02/10/24 09/25/24 History pantoprazole 40 mg tablet,delayed 40 mg PO QAM 02/10/24 09/25/24 History release alendronate 70 mg tablet 70 mg PO WEEKLY 09/25/24 09/25/24 History diclofenac sodium 75 mg 75 mg PO Q12H 09/25/24 09/25/24 History tablet,delayed release methocarbamol 750 mg tablet 750 mg PO .PM PRN muscle spasm 09/25/24 09/25/24 History sucralfate 1 gram tablet 1 g PO DAILY 09/25/24 09/25/24 History Allergies Allergy/AdvReac Type Severity Reaction Status Date / Time adhesive tape Allergy Unknown Blister Verified 10/11/24 07:20 ketorolac Allergy Unknown Rash Verified 10/11/24 07:20 Exam Narrative: Positive straight leg raise bilaterally Unless otherwise stated above, the patient's physical exam is as follows: General: -Well developed and well nourished. No a cute distress. Cooperative with exam. Mental status: -Awake and oriented to person, place, an d time. Affect is normal. -Fund of knowledge appropriate -Recent and remote memory are intact -Attention span and concentration appear normal -Language function is normal -There is no evidence of aphasia in conv ersational speech. Cranial nerves: -CN II: Visual panda full to bedside co nfrontation -CN III, IV, : Pupils equal, round, an d reactive to light; extraocular movements, no ptosis, no nystagmus -CN V: Facial sensation intact in V1 thr ough V3 distributions -CN VII: Face symmetric -CN VIII: Hearing intact to conversation al speech -CN IX, X: Palate elevates symmetrically ; normal phonation -CN XI: Symmetric full strength of grullon ocleidomastoid and trapezius muscles -CN XII: Tongue protrudes midline Integumentary: -No obvious skin lesions or masses Motor: -Muscle tone normal without spasticity o f flaccidity. No atrophy. No fasciculations. -Right lower extremity: iliopsoas 5/5, q uadriceps 5/5, hamstrings 5/5, tibialis anterior 5/5, gastroc-soleus 5/5, EHL 5/5 -Left lower extremity: iliopsoas 5/5, qu adriceps 5/5, hamstrings 5/5, tibialis anterior 5/5, gastroc-soleus 5/5, EHL 5/5 Sensory: -Intact to light touch throughout -Normal proprioception throughout Reflexes: -1-2+ DTR's throughout -No Estrella's, clonus, or Babinski bilat erally Musculoskeletal: -Lumbar spine: no tenderness to palpatio n, no pain, and normal lumbosacral spine movements -Wwciwilc-rde-[id number] test negative -Hip: normal range of motion, no crepitu s bilaterally. No pain reproduced on STUART or FAIR testing bilaterally -Knee: no instability, subluxation or la xity, and no crepitus bilaterally I personally reviewed the MRI lumbar spine which shows evidence of adjacent segm ent disease at L2-3 with a slight retrolisthesis of L2 on L3, central disc bulge, and ligamentum flavum hypertrophy contributing to severe central and lateral recess stenosis at this level. Assessment and Plan Assessment and plan (1) History of lumbar fusion: Code(s): Z98.1 - Arthrodesis status Status: Acute (2) Lumbar spinal stenosis due to adjacent segment disease after fusion procedure: Code(s): M48.061 - Spinal stenosis, lumbar region without neurogenic claudication; M51.369 - Other intervertebral disc degeneration, lumbar region without mention of lumbar back pain or lower extremity pain; Z98.1 - Arthrodesis status Status: Acute (3) Spondylolisthesis, lumbar region: Code(s): M43.16 - Spondylolisthesis, lumbar region Status: Acute Plan Ms. Gutiérrez is a 79-year-old female with history of a previous L3-5 fusion who presents with worsening low back and bilateral thigh pain for which she has done recent physical therapy without improvement. She has a recent MRI lumbar spine showing evidence of adjacent segment disease at L2-3 severe central and lateral recess stenosis and a slight spondylolisthesis at this level as well. She has started on fosamax for osteoporosis. I have offered her surgery in the form of L2-3 decompression and posterolateral fusion. We discussed surgery in detail including risks, expected recovery, and restrictions after surgery. She would like to proceed with surgery as discussed.
--- NOTE | 2024-10-11 07:25 | WPDHPUPDATE1 ---
History and Physical Update Update Date/Time: 10/11/24 07:25 History and Physical has been reviewed, including an updated exam of the patient. There are NO changes in the patient's condition. Risks, benefits, and alternatives have been discussed and questions answered. Patient agrees to proceed with procedure.
--- NOTE | 2024-10-11 07:26 | P.PNAN_ITS ---
Anes - Initial Pre Proc Eval Procedure: Operation Date: 10/11/24 07:30 Proposed Procedures p Stereotactic Computer Assisted Extension of Fusion L2, L2-3, Decompression Posterolateral Fusion - Marta Vanessa MD Date/Time: 10/11/24 07:26 Surgeon: Marta Vanessa MD Pre Op Diagnosis: lumbar stenosis, lumbar spondylolisthesis Patient Data Age: 79 Gender: F Height: 1.57 m Weight: 68.8 kg Last Vital Signs Temp 98.3 F 09/25/24 12:07 Pulse 72 09/25/24 12:07 Resp 16 09/25/24 12:07 BP 149/60 H 09/25/24 12:07 Pulse Ox 98 09/25/24 12:07 O2 Del Method Room Air 09/25/24 12:07 Allergies Allergy/AdvReac Type Severity Reaction Status Date / Time adhesive tape Allergy Unknown Blister Verified 10/11/24 07:20 ketorolac Allergy Unknown Rash Verified 10/11/24 07:20 Home Medications ?Medication ?Instructions ?Recorded ?Confirmed ?Type ascorbate calcium (vitamin C) 500 500 mg PO DAILY 10/15/22 09/25/24 History mg tablet aspirin 81 mg tablet,delayed 81 mg PO DAILY 10/15/22 09/25/24 History release (Adult Aspirin Regimen) cetirizine 10 mg disintegrating 10 mg PO DAILY 10/15/22 09/25/24 History tablet (Children's Zyrtec Allergy) gabapentin 300 mg capsule 300 mg PO BID 10/15/22 09/25/24 History acetaminophen 650 mg 650 mg PO Q8H PRN Mild Pain (Scale 10/19/22 09/25/24 History tablet,extended release Score 1-4) diltiazem HCl 240 mg 240 mg PO DAILY 10/19/22 10/11/24 History capsule,extended release 24 hr hydrochlorothiazide 25 mg tablet 25 mg PO DAILY 10/19/22 09/25/24 History montelukast 10 mg tablet 10 mg PO PRN PRN Allergy Symptoms 10/19/22 09/25/24 History benazepril 40 mg tablet 40 mg PO DAILY 02/10/24 09/25/24 History famotidine 20 mg tablet 20 mg PO DAILY 02/10/24 09/25/24 History multivitamin 1 tablet PO DAILY 02/10/24 09/25/24 History pantoprazole 40 mg tablet,delayed 40 mg PO QAM 02/10/24 09/25/24 History release alendronate 70 mg tablet 70 mg PO WEEKLY 09/25/24 09/25/24 History diclofenac sodium 75 mg 75 mg PO Q12H 09/25/24 09/25/24 History tablet,delayed release methocarbamol 750 mg tablet 750 mg PO .PM PRN muscle spasm 09/25/24 09/25/24 History sucralfate 1 gram tablet 1 g PO DAILY 09/25/24 09/25/24 History Laboratory Tests 10/11/24 06:52 Blood Type Pending Antibody Screen Pending Patient hx anesthesia problems: none Family hx anesthesia problems: none Results Review: All pre-operative results and documents have been reviewed as part of the pre-operative evaluation. [facility] Past Medical History Medical History History of skin cancer Allergies Osteoporosis Melanosis coli Colon cancer screening Sleep apnea HLD (hyperlipidemia) Hypertension History of hemorrhoids Chronic constipation GERD (gastroesophageal reflux disease) Dysphagia Family History Family History Father Diabetes mellitus Hypertension Heart disease Sibling Diabetes mellitus Hypertension Heart disease Breast cancer Social History Social History Smoking status: Never smoker Alcohol intake: never Substance use: never Substance use type: does not use Do You Feel Safe in your Home?: Yes Lack of Transportation: No Lack of Food: Never True Current Housing: I Have Housing Concerned About Future Housing: No Difficulty Paying Gas/Electric Bills: No Difficulty Paying for Meds: No Currently Unemployed: Decline to Answer Education: High School Diploma/GED Difficulty w/ Childcare or Family Care: No Living arrangements: with family Spiritual care concerns: No Anes - Eval Final PreProcedure Day of Procedure 10/11/24 07:26 Patient weight: normal Heart: regular rate and rhythm Lungs: clear to auscultation Airway: Mallampati scale class II Neurological: alert and oriented Last oral intake: >/= 8 hours ASA classification: III Emergent: no Anesthetic plan: proceed Anesthesia type and monitoring: general ETT and standard monitoring Results Review: All pre-operative results and documents have been reviewed as part of the pre- operative evaluation. Informed Consent: The patient's anesthetic plan and its attendant risks and benefits were discussed with the patient/family/POA. Questions were solicited and answers provided to the satisfaction of the patient/family/POA.
[2024-10-11] MEDS: ceFAZolin 2 GM/D5W 50 ML 2 GM/50 ML BAG IVPB (07:39)
[2024-10-11] MEDS: BUPIVACAINE/EPINEPHRINE 0.5% 30 ML VIAL INFILTRATE (09:02)
[2024-10-11] MEDS: fentaNYL CITRATE INJ (*CRX) 100 MCG/2 ML VIAL 25 MCG IV PUSH ×6 (11:05→11:23)
--- NOTE | 2024-10-11 11:05 | PM.OP ---
Procedure Note - Brief Procedure Note - Brief Date of procedure: 10/11/24 lumbar stenosis, lumbar spondylolisthesis Post-op diagnosis: Same Procedure performed: Extension of previous L3-5 fusion to L2, L2-3 posterolateral fusion and decompression Use of 7D navigation Use of C-arm Surgeon: Marta Vanessa MD Warning Coordination Meteorologist: Cheryl Anesthesia: GETA Findings: Adequate hardware placement with pedicle screws at L2 connected to existing hardware. Wide decompression at L2-3. Hemovac drain placed Estimated blood loss (mL): 50 Drains: Yes Packing: No Pathology: None sent Complications: None Condition: Stable Disposition: PACU
[2024-10-11] MEDS: HYDROmorphone HCL INJ (*CRX) 1 MG/ML SYR 0.5 MG IV PUSH (11:27)
--- NOTE | 2024-10-11 14:00 | PC.NURSE ---
This patient, Mariana Gutiérrez, was admitted to [address] [place] [address] Room 330-01 at 1400. Patient/family oriented to hospital policies and general routines including ID bracelet, bed and alarms, visiting hours, pain management, procedures, bathroom and other care routines, personal items, smoking policy, room service/diet, and visiting hours. Information on how to activate the Rapid Response Team has been discussed. Patient/Family are encouraged to report perceived risks to care and to ask questions if they do not understand what they are told or what they should do.
[2024-10-11] MEDS: ONDANSETRON INJ 4 MG/2 ML VIAL IV PUSH (14:14)
--- NOTE | 2024-10-11 15:18 | PCOTNOTE ---
Attempted to see pt for OT evaluation however pt is nauseous and declines attempts to get up this afternoon. Will continue to follow.
--- NOTE | 2024-10-11 15:29 | P.OP_ITS ---
Procedure Note - Detailed Date of Procedure 10/11/24 Pre-op Diagnosis lumbar stenosis, lumbar spondylolisthesis, history of lumbar arthrodesis with adjacent segment disease Post-op Diagnosis Same Procedure Performed 1. Bilateral pedicle screw instrumentation at L2 2. L2-3 posterolateral arthrodesis with autograft and allograft 3. Mckeon laminectomy at L2 4. Use of C-arm for fluoroscopy 5. Use of 7D Flash navigation Surgeon Marta Vanessa MD Heat Sealing Machine Operator Cheryl Anesthesia General Description of Procedure The patient was brought to the operating room, and general anesthesia was induced. The patient was placed prone on the open Jabari table, and all pressure points were padded. Compression devices were placed on the patient's calves. The C-arm was brought onto the field to localize the appropriate level and assist with incisional planning. The previous incision was marked and extend ed cephalad. The area was prepped and draped in usual sterile fashion. A time out was conducted, and pre-operative antibiotics were administered. Local anesthesia was injected into the planned incision. The previous skin incision was re-opened and extended cephalad with the 10-blade scalpel, and dissection was carried down with the monopolar cautery to open the fascia. The spinous processes were exposed, and a subperiosteal dissection was performed with the Bovie out transverse processes bilaterally, taking care not to disrupt the facets. The previous hardware at L3 and L4 was exposed bila terally. Navigational clamp was placed on the spinous process of L2 the patient's preoperative CT scan was registered based on intraoperative anatomy. The navigation was tested for accuracy. Starting on the left side, a state pilot hole was created with assitance from navigation at L2 the junction of the transverse process with the superior articular process. The navigated gear shift was used to create the trajectory through the pedicle, and this was tapped. The trajectory was palpated the ball-tipped probe to ensure no breaches in the bone. A 6.5 x 40 mm screw was placed at this level. This process was repeated on the right-sided L2, also with a 6.5 x 40 mm screw being placed. The navigational clamp was removed, and then we proceeded with the decompression portion of procedure. The high-speed drill was used to create a trough through the lamina and pars bilaterally. The spinous process and lamina were removed with the Leksell until the ligamentum flavum was exposed. A curved curette was used to separate the ligamentum from the overall which was then removed with a Kerrison. The pars and the superior articular process of L3 were removed bilaterally. The medial portion of the inferior articular process was reviewed as well to decompress the lateral recesses. All bone was saved and morselized for autograft. The dura was widely decompressed, and the L2 nerve roots were al so exposed in the foramen and decompressed. The existing rods were exposed, and the transverse processes were decorticated. Connectors were placed bilaterally onto the existing rods between the L3 and the L4 screws. Rods replaced through the pedicle screw of L2 to the connectors. Set screws replaced and were final tightened at both the new screws and the connectors. The C-arm was brought back in to obtain confirmatory x-rays which show adequate hardware placement. Hemostasis was ensured, and the area was copiously irrigated. No evidence of CSF leak was noted. The morselized autograft was placed laterally along the decorticated bony edges. A medium Hemovac drain was placed into the surgical cavity and tunneled inferiorly into the left. The muscle was loosely approximated with 0-Vicryl. The fascia was closed with 0-Vicryl in an interrupted fashion. The soft tissue was again copiously irrigated. The dermis was closed with 2-0 and 3-0 interrupted Vicryl. The skin was closed with 3-0 nylon. The drain was secured with a nylon as well. Sterile dressings were applied. The patient was returned supine on the stretcher, extubated, and transferred to PACU without incident. Billing code: [id number], [id number], [id number], [id number] Estimated Blood Loss 50 Drains Yes Packing No Pathology None sent Complications None Condition Stable Disposition PACU [facility] Billing Surgery - Charge Forward: Surgery Billing
[2024-10-11] MEDS: ceFAZolin 1 GM/NS 50 ML 1 GM/50 ML BAG IVPB ×2 (16:39→23:04)
[2024-10-11] MEDS: GABAPENTIN 300 MG CAPSULE PO (16:39)
[2024-10-11] MEDS: ACETAMINOPHEN 500 MG TABLET 1000 MG PO ×2 (16:39→22:50)
[2024-10-11] MEDS: PROMETHAZINE HCL 25 MG/ML AMPUL 12.5 MG IV PUSH (17:41)
[2024-10-11] MEDS: SODIUM CHLORIDE 0.9% IV 1,000 ML 75 ML IV CONT (17:42)
--- NOTE | 2024-10-11 18:23 | PC.NURSE ---
On 10/11/24, the SLIP FEEDER, Gianna Glass, provided care and completed [facility] documentation on this patient. I have reviewed the SLIP FEEDER's documentation and agree with the findings.
[2024-10-11] MEDS: DOCUSATE SODIUM 100 MG CAPSULE PO (20:31)
[2024-10-12 01:58] VITALS: BP 117/53; PULSE 85; RESP 12; TEMP 36.7; O2SAT 97
[2024-10-12 05:13] VITALS: BP 117/56; PULSE 83; RESP 14; TEMP 36.6; O2SAT 95
[2024-10-12] MEDS: ACETAMINOPHEN 500 MG TABLET 1000 MG PO ×2 (05:54→13:43)
[2024-10-12 07:47] LABS: Glucose Point of Care 105 mg/dl (65-105)
[2024-10-12] MEDS: lisinopriL 20 MG TABLET 40 MG PO (09:10)
[2024-10-12] MEDS: DOCUSATE SODIUM 100 MG CAPSULE PO (09:10)
[2024-10-12] MEDS: ceFAZolin 1 GM/NS 50 ML 1 GM/50 ML BAG IVPB (09:10)
[2024-10-12] MEDS: hydroCHLOROthiazide 25 MG TABLET PO (09:10)
[2024-10-12] MEDS: GABAPENTIN 300 MG CAPSULE PO (09:10)
[2024-10-12] MEDS: dilTIAZem HCL CD 240 MG CAP.24HR PO (09:10)
[2024-10-12] MEDS: FAMOTIDINE 20 MG TABLET PO (09:10)
[2024-10-12] MEDS: SUCRALFATE 1 GM TABLET PO (09:10)
[2024-10-12] MEDS: PANTOPRAZOLE 40 MG TABLET PO (09:10)
[2024-10-12] MEDS: oxyCODONE HCL (*CRX) 5 MG TAB IR PO (09:27)
[2024-10-12 10:00] VITALS: BP 136/72; PULSE 78; RESP 16; TEMP 36.9; O2SAT 98
--- NOTE | 2024-10-12 10:15 | P.PNAN_ITS ---
Anes - Eval Pre Procedure Procedure: Operation Date: 10/11/24 07:30 Proposed Procedures p Stereotactic Computer Assisted Extension of Fusion L2, L2-3, Decompression Posterolateral Fusion - Marta Vanessa MD Date/Time: 10/12/24 10:15 Preop Diagnosis: Abdominal pain with contractions Pre Op Diagnosis: lumbar stenosis, lumbar spondylolisthesis Patient Data Age: 79 Gender: F Height: 1.57 m Weight: 66.5 kg Last Vital Signs Temp 97.9 F 10/12/24 05:13 Pulse 83 10/12/24 05:13 Resp 14 10/12/24 05:13 BP 117/56 L 10/12/24 05:13 Pulse Ox 95 10/12/24 05:13 O2 Del Method Room Air 10/12/24 07:58 O2 Flow Rate 1 10/11/24 12:45 Allergies Allergy/AdvReac Type Severity Reaction Status Date / Time adhesive tape Allergy Unknown Blister Verified 10/11/24 07:20 ketorolac Allergy Unknown Rash Verified 10/11/24 07:20 Home Medications ?Medication ?Instructions ?Recorded ?Confirmed ?Type ascorbate calcium (vitamin C) 500 500 mg PO DAILY 10/15/22 09/25/24 History mg tablet aspirin 81 mg tablet,delayed 81 mg PO DAILY 10/15/22 09/25/24 History release (Adult Aspirin Regimen) cetirizine 10 mg disintegrating 10 mg PO DAILY 10/15/22 09/25/24 History tablet (Children's Zyrtec Allergy) gabapentin 300 mg capsule 300 mg PO BID 10/15/22 09/25/24 History acetaminophen 650 mg 650 mg PO Q8H PRN Mild Pain (Scale 10/19/22 09/25/24 History tablet,extended release Score 1-4) diltiazem HCl 240 mg 240 mg PO DAILY 10/19/22 10/11/24 History capsule,extended release 24 hr hydrochlorothiazide 25 mg tablet 25 mg PO DAILY 10/19/22 09/25/24 History montelukast 10 mg tablet 10 mg PO PRN PRN Allergy Symptoms 10/19/22 09/25/24 History benazepril 40 mg tablet 40 mg PO DAILY 02/10/24 09/25/24 History famotidine 20 mg tablet 20 mg PO DAILY 02/10/24 09/25/24 History multivitamin 1 tablet PO DAILY 02/10/24 09/25/24 History pantoprazole 40 mg tablet,delayed 40 mg PO QAM 02/10/24 09/25/24 History release alendronate 70 mg tablet 70 mg PO WEEKLY 09/25/24 09/25/24 History diclofenac sodium 75 mg 75 mg PO Q12H 09/25/24 09/25/24 History tablet,delayed release methocarbamol 750 mg tablet 750 mg PO .PM PRN muscle spasm 09/25/24 09/25/24 History sucralfate 1 gram tablet 1 g PO DAILY 09/25/24 09/25/24 History Laboratory Tests 10/12/24 07:33 POC Capillary Glucose 105 mg/dl (65-105) : gestational age HCG: positive Patient hx anesthesia problems: none Family hx anesthesia problems: none Results Review: All pre-operative results and documents have been reviewed as part of the pre- operative evaluation. [facility] Past Medical History Medical History History of skin cancer Allergies Osteoporosis Melanosis coli Colon cancer screening Sleep apnea HLD (hyperlipidemia) Hypertension History of hemorrhoids Chronic constipation GERD (gastroesophageal reflux disease) Dysphagia Family History Family History Father Diabetes mellitus Hypertension Heart disease Sibling Diabetes mellitus Hypertension Heart disease Breast cancer Social History Social History Smoking status: Never smoker Alcohol intake: never Substance use: never Substance use type: does not use Do You Feel Safe in your Home?: Yes Lack of Transportation: No Lack of Food: Never True Current Housing: I Have Housing Concerned About Future Housing: No Difficulty Paying Gas/Electric Bills: No Difficulty Paying for Meds: No Currently Unemployed: No Education: High School Diploma/GED Difficulty w/ Childcare or Family Care: No Living arrangements: with family Additional living arrangements comments: Spiritual care concerns: No Exam Day of Procedure 10/12/24 10:15
[2024-10-12 11:22] LABS: Glucose Point of Care 158 mg/dl (65-105)
[2024-10-12] MEDS: oxyCODONE HCL (*CRX) 5 MG TAB IR 10 MG PO (13:44)
[2024-10-12 14:00] VITALS: BP 118/56; PULSE 80; RESP 16; TEMP 36.8; O2SAT 95
--- NOTE | 2024-10-12 14:33 | WPDNEUROSGPN ---
Progress Note: A&P Assessment and Plan (1) History of lumbar fusion: Code(s): Z98.1 - Arthrodesis status Status: Acute Plan -Remove hemovac drain today -Discussed wound care and activity precautions at bedside -Discharge home today -Follow up with me in clinic in 2 weeks Subjective Date/time seen: 10/12/24 14:33 Interval history: She overall is doing well with good pain control. She has mostly been taking Tylenol only. She is able to get up and walk with Physical therapy who cleared her for discharge home. She states that her only pain at this time is in her back and that legs are feeling much better. She is able to void independently. She had significant nausea and vomiting yesterday which resolved after a dose of Phenergan last night. She has been tolerating oral intake. She indicates that she like to go home today. Exam Narrative: Dressing with small amount of serosanguinous drainage Full strength in lower extremities Sensation intact to light touch Objective Data Vital Signs Vital Signs: Vital Signs - 24 hr 10/11/24 15:30 10/11/24 16:30 10/11/24 20:50 Temperature 98.4 F 98.0 F 97.8 F Pulse Rate 100 97 97 Respiratory Rate 18 16 13 Blood Pressure 144/73 H 147/70 H 136/66 Pulse Oximetry 94 95 95 Oxygen Delivery 10/12/24 01:58 10/12/24 05:13 10/12/24 07:58 Temperature 98.1 F 97.9 F Pulse Rate 85 83 Respiratory Rate 12 14 Blood Pressure 117/53 L 117/56 L Pulse Oximetry 97 95 Oxygen Delivery Room Air 10/12/24 10:00 10/12/24 14:00 Temperature 98.4 F 98.3 F Pulse Rate 78 80 Respiratory Rate 16 16 Blood Pressure 136/72 118/56 L Pulse Oximetry 98 95 Oxygen Delivery Intake/Output Intake/Output: Intake & Output 10/09/24 10/10/24 10/11/24 10/12/24 23:59 23:59 23:59 23:59 Intake Total 700 1826 Output Total 180 110 Balance 520 1716 Meds/Results Medications: Active Medications Generic Name Dose Route Start Last Admin Trade Name Freq PRN Reason Stop Dose Admin Acetaminophen 1,000 mg 10/11/24 11:00 10/12/24 13:43 Acetaminophen 500 Mg Tablet PO 1,000 mg Q6H ERIC Administration Al Hydrox/Mg Hydrox/Simethicone 20 ml 10/11/24 11:00 Mag Hydrox/Al Hydrox/Simeth 30 Ml Udc PO Q4H PRN Indigestion/Heartburn Bisacodyl 10 mg 10/11/24 11:00 Bisacodyl 10 Mg Suppository RECTAL DAILY PRN Constipation Diltiazem HCl 240 mg 10/12/24 09:00 10/12/24 09:10 Diltiazem Hcl Cd 240 Mg Cap.24hr PO 240 mg DAILY ERIC Administration Docusate Sodium 100 mg 10/11/24 21:00 10/12/24 09:10 Docusate Sodium 100 Mg Capsule PO 100 mg Q12HR ERIC Administration Famotidine 20 mg 10/12/24 09:00 10/12/24 09:10 Famotidine 20 Mg Tablet PO 20 mg DAILY ERIC Administration Gabapentin 300 mg 10/11/24 17:00 10/12/24 09:10 Gabapentin 300 Mg Capsule PO 300 mg BID ERIC Administration Hydrochlorothiazide 25 mg 10/12/24 09:00 10/12/24 09:10 Hydrochlorothiazide 25 Mg Tablet PO 25 mg DAILY ERIC Administration Cefazolin Sodium 1 gm in 50 mls @ 100 mls/hr 10/11/24 16:00 10/12/24 09:40 Ancef 1 Gm/Ns 50 Ml IVPB Infused Q8H ERIC Infusion Lisinopril 40 mg 10/12/24 09:00 10/12/24 09:10 Lisinopril 20 Mg Tablet PO 40 mg DAILY ERIC Administration Morphine Sulfate 2 mg 10/11/24 11:00 Morphine Sulfate (*Crx) 2 Mg/Ml Inj IV PUSH Q2H PRN Breakthrough Pain Ondansetron HCl 4 mg 10/11/24 11:00 10/11/24 14:14 Ondansetron Inj 4 Mg/2 Ml Vial IV PUSH 4 mg Q8H PRN Administration Nausea And Vomiting Oxycodone HCl 5 mg 10/11/24 11:00 10/12/24 09:27 Oxycodone Hcl (*Crx) 5 Mg Tab Ir PO 5 mg Q4H PRN Administration Pain Rated 4-6 Oxycodone HCl 10 mg 10/11/24 11:00 10/12/24 13:44 Oxycodone Hcl (*Crx) 5 Mg Tab Ir PO 10 mg Q4H PRN Administration Pain Rated 7-10 Pantoprazole Sodium 40 mg 10/12/24 09:00 10/12/24 09:10 Pantoprazole 40 Mg Tablet PO 40 mg QAM ERIC Administration Senna/Docusate Sodium 1 tab 10/11/24 11:00 Senna/Docusate Sodium Tablet PO HS PRN Constipation Sucralfate 1 gm 10/12/24 09:00 10/12/24 09:10 Sucralfate 1 Gm Tablet PO 1 gm DAILY ERIC Administration Tizanidine HCl 2 - 4 mg 10/11/24 11:00 Tizanidine Hcl 2 Mg Tablet PO Q8H PRN muscle spasms Radiology Results: ITS Impressions Fluoroscopy 10/11/24 12:37 IMPRESSION: Fluoroscopy used during lumbar fusion and decompression. Labs Labs: Laboratory Results - last 24 hr 10/12/24 10/12/24 07:33 11:12 POC Capillary Glucose 105 158 H
--- NOTE | 2024-10-12 15:45 | PC.NURSE ---
On 10/12/24, the INDUSTRIAL SALES ENGINEER, Gianna Estrada, provided care and completed [employer] documentation on this patient. I have reviewed the INDUSTRIAL SALES ENGINEER's documentation and agree with the findings.
== END 2024-10-12 15:45 | disposition home or self-care (01) ==
LOC: ANHSURGERY 05:46 → ANH3MEDSUR 13:42
PROVIDERS: PCP Family Medicine; Visit Provider Neurological Surgery
PROC: (CPT 22612; principal; 2024-10-11 07:30)
DX: M43.16 Spondylolisthesis, lumbar region (principal); M48.061 Spinal stenosis, lumbar region without neurogenic claudication; Z98.1 Arthrodesis status; M51.369 Other intervertebral disc degeneration, lumbar region without mention of lumbar back pain or lower extremity pain; Z79.899 Other long term (current) drug therapy
CPT/HCPCS: 22612; 22840; 63047; 36415; 82948; 86850; 86900; 86901; 97161; 97165; 99199; A9270; C1713; J0690; J1100; J1171; J2003; J2405; J2550; J2704; J3010; J7030; J7120

== ENCOUNTER 2025-01-15 11:49 | Outpatient (CLI) | payer MEDICARE, SELFPAY ==
--- OUTSIDE RECORDS SUMMARY | 2003-08-09 08:45 | XMS_ITS | Continuity of Care Document ---
Author Organization [facility] Address [id number] [place] [address] [place] [address] Phone Care Team Providers Care Hospital Director Name Role Phone Issac Calhoun DO Unavailable Unavailable Advance Directives Directive Yes / No Effective Date File Name No Information Encounters Encounter Description Practice Location Reason(s) For Visit Diagnoses Date Provider Providers Copied on Encounter [facility], [id number] [place] [address] [address], [place], [place], [id number], [place] tel:[phone] [facility] No Information Unique Berry. [address] [facility], [place], [address], [place]. tel: [phone] Family History Family Member Type Diagnosis Age At Onset No Information Payers Payer name Insurance type Covered constitution party ID Authoriza tiruss(s) [facility] Commercial CI [id number] Social History Type Description Quantity Date Captured Comments Sex Female Smoking Status No Information Chief Complaint And Reason For Visit No Information Reason For Referral Reason For Referral No Information History Of Present Illness Encounter Date Complaint History Of Prese nt Illness No Information Functional Status Date Functional Assessmen t No Information Instructions Date Instruction Additional Infor mation No Information Assessments Type Assessment Date No Information Patient Care Teams Name Effective Dates (start - stop) Status Members No Information
--- NOTE | ~2025-01-15 | MM_ITS ---
EXAMINATION: MM screening patricio BI w aida HISTORY: Screening TECHNIQUE: Craniocaudal and mediolateral oblique 3-D tomosynthesis images were obtained and synthetic 2-D images were generated. CAD analysis was submitted and interpreted. COMPARISON: 08/11/2017 BREAST PARENCHYMAL COMPOSITION: The breasts are extremely dense, which lowers the sensitivity of mammography. FINDINGS: There is no evidence of suspicious mass, calcification, or architectural distortion to suggest malignancy in either breast. IMPRESSION: 1. No mammographic evidence of malignancy. 2. Recommend routine screening mammography in one year. BI-RADS Category 1: Negative Reviewed, dictated and finalized at location B.
--- OUTSIDE RECORDS SUMMARY | 2025-01-15 12:05 | XMS_ITS | Clinical Summary ---
Author Organization [facility] Address [address] [place] [id number] Care Team Providers Care Lead Systems Analyst Name Role Phone Octavio Crowley MD Primary Care Provider [phone]- [phone] Allergies Active Allergy Reactions Criticality Noted Date [...] oz pur e alcohol) Social Connection and Isolation Panel Answer Date Recorded In a typical week, how many times do you talk on the phone with family, friends, or neighbors? Three times a week 03/06/2020 How often do you get togethe r with friends or relatives? Once a week 03/06/2020 How often do you attend chur ch or episcopalian services? 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 Gender Identity Not on file Sexual Orientation [...] Screening 06/03/2022 06/03/2021, 06/03/2021, 07/22/2018 Influenza Vaccine (#1) 2025 0, 02/27/2019, 02/11/2017, Additional history exists DTaP/Tdap/Td Vaccine (2 - Td or Tdap) 01/30/2025 01/30/2015 Colon Cancer Screening-CT Colonography Discontinued 07/26/2018 Colon Cancer Screening-Colonoscopy Discontinued 07/26/2018 Colon Cancer Screening-DNA Stool Discontinued 07/27/19 Colon Cancer Screening-FIT Discontinued 07/26/2018 Colon Cancer Screening-FOBT Discontinued 07/26/2018 Colon Cancer Screening-Sigmoidoscopy Discontinued 07/26/2018 Colorectal Cancer Screening Discontinued Pneumococcal vaccine 65+ Completed 021, 02/11/2017, 03/02/2013 Medical Devices Implanted Type Area It Security Specialist Device Identifier Shelf Expiration Date Model / Serial / Lot Medtronic Ultralife Danek [id number] Infuse 14mm 23mm Absorbable Sponge Sterile Water Syringe Needle - [id number] Implanted:Qty: 1 on 03/05/2020 by Keith Mack MD at [facility] Spine Lumbar Medtronic Inc 01/07/2021 [id number] / / [id number] Biomedical Janine Dp-1011 Duragen Plus 1x1in Patch Resorbable Suturable Cranial Dura Graft - [id number] Implanted:Qty: 1 on 03/05/2020 by Keith Mack MD at [facility] Spine Lumbar Integra Lifesciences Janine 09/06/2022 [id number]-[id number] / / [id number] Nuvasive Creative Spine Tech [id number] Modulus [id number] 10d Xl Cage Spinal Sterile Latex Free - [id number] Implanted:Qty: 1 on 03/05/2020 by Keith Mack MD at [facility] Spine Lumbar Nuvasive Inc 01/11/2024 [id number] / / [id number] Spinal Graft Tech [id number] Tyrrell Putty Jar Graft 5cc Bone Demineralized Bone Matrix - [id number] - [id number] Implanted:Qty: 1 on 03/05/2020 by Keith Mack MD at [facility] Spine Lumbar Spinal Graft Tech 12/17/2022 [id number] / [id number] / Nuvasive Creative Spine Tech [id number] Modulus [id number] 10d Xl Cage Spinal Sterile Latex Free - [id number] Implanted:Qty: 1 on 03/05/2020 by Keith Mack MD at [facility] Spine Lumbar Nuvasive Inc 08/22/2024 [id number] / / [id number] K2m Llc [id number] [place] Spine Screw Set Crow - [id number] Implanted:Qty: 6 on 03/05/2020 by Keith Mack MD at [facility] Spine Lumbar Romel Spine [id number] / / K2m Llc [id number] [place] Od6.5 Mm L40 Mm Polyaxial Spine Screw Bone - [id number] Implanted:Qty: 2 on 03/05/2020 by Keith Mack MD at [facility] Spine Lumbar Sinclair Spine [id number] / / K2m Llc [id number] [place] Od6.5 Mm L45 Mm Polyaxial Spine Screw Bone - [id number] Implanted:Qty: 4 on 03/05/2020 by Keith Mack MD at [facility] Spine Lumbar Romel Spine [id number] / / K2m Llc [id number] Od5.5 Mm L65 Mm Contour Curved; Contour Charlie Spinal Crow - [id number] Implanted:Qty: 2 on 03/05/2020 by Keith Mack MD at [facility] Spine Lumbar Sinclair Spine [id number] / / Spinal Graft Tech [id number] Tyrrell Putty Jar Graft 5cc Bone Demineralized Bone Matrix - [id number] - [id number] Implanted:Qty: 1 on 03/05/2020 by Keith Mack MD at [facility] Spine Lumbar Spinal Graft Tech 09/11/2022 [id number] / [id number] / Procedures Procedure Name Priority Date/Time Associated Diagnosis Comments COLONOSCOPY 07/26/2018 8:56 AM CDT from Last 3 Months or Most Recently Relevant to Health Maintenance Results * COLONOSCOPY (07/26/2018 8:56 AM CDT) Anatomical Region Laterality Modality Other Narrative Procedure Note Pippa Mei MD - 07/26/2018 8:56 AM CDT [facility] Endoscopy Lab Patient Name: Mariana Gutiérrez [...] by the physician, the nurse and the color straining bag washer in the procedure room. Mental Status Examination: [...] passedunder direct vision. The Colonoscope CF-Q180 AL [id number] introduced through the anus and advanced to [...] not recommended. Procedure Code(s): --- Professional --- 19482, Colonoscopy, flexible; with biopsy, single or multiple Diagnosis Code(s): --- Professional --- K63.89, Other specified diseases of intestine K64.8, Other hemorrhoids K92.1, Melena (includes Hematochezia) K57.30, Diverticulosis of large intestine without perforation or abscess without bleeding CPT copyright 2017 [employer]. All rights reserved. The codes documented in this report are preliminary and upon thai masseur reviewmay be revised to meet current compliance requirements. Electronically signed by Pippa Mei M.D. Pippa Mei M.D. 07/26/2018 9:30:08 AM Number of Addenda: 0 Note Initiated On: 07/26/2018 8:56 AM Pippa Mei MD ENDOSCOPY PROCEDURES Fi nal Result from Last 3 Months or Most Recently Relevant to Health Maintenance Insurance [facility] Address: [address] [address] [place] [address] [facility] Address: [id number] [place] [address] [facility] Address: [address] [address] [place] [address] [facility] MDCR HMO [facility] Address: [facility] [address] [place] [address] Advance Directives For more information, please contact: [phone] * Full Code (Latest Code Status on File) Date Activated Date Inactivated Comments 03/05/2020 4:36 PM 03/10/2020 1:46 AM Care Teams Lead Systems Analyst Relationship Specialty Start Date End Date Octavio Crowley MD [address] [place] [address] [place] [address] PCP - General Family Medicine 12/14/19
== END 2025-01-15 11:50 | disposition home or self-care (01) ==
LOC: CHSIMG 11:52
PROVIDERS: PCP Internal Medicine; Visit Provider Internal Medicine
DX: Z12.31 Encounter for screening mammogram for malignant neoplasm of breast (principal)
CPT/HCPCS: 77063; 77067

== ENCOUNTER 2025-01-25 11:30 | Outpatient (CLI) | payer MEDICARE, SELFPAY ==
--- NOTE | ~2025-01-25 | XR_ITS ---
XR lumbar spine 2-3V Indication: Z98.1 - Arthrodesis status, SURGERY 10/11/24, Comparison: None Findings: Postsurgical changes with fixation of L5, L4, L3 and L2 with disc prostheses at L4-5 and L3-4, the hardware is intact with no fracture identified. There is grade 1 retrolisthesis of L2 on L3. Severe loss of disc at L2-3 and L5-S1. Soft tissues unremarkable Impression: No acute abnormality. Reviewed, dictated and finalized at location A. Impression: No acute abnormality.
--- OUTSIDE RECORDS SUMMARY | 2025-01-25 11:56 | XMS_ITS | Clinical Summary ---
Author Organization [facility] Address [address] [place] [id number] Care Team Providers Care Drill Press Operator Name Role Phone Octavio Crowley MD Primary Care Provider +1- [phone] Allergies Active Allergy Reactions Criticality Noted Date [...] often do you attend chur ch or holiness services? 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 Gender Identity Not on file Sexual Orientation [...] 02/11/2017, 03/02/2013 Medical Devices Implanted Type Area Mortar Man Device Identifier Shelf Expiration Date Model / Serial / Lot Medtronic DoublePlay Entertainment Danek [id number] Infuse 14mm 23mm Absorbable Sponge Sterile Water Syringe Needle - [id number] Implanted:Qty: 1 on 03/05/2020 by Keith Mack MD at [facility] Spine Lumbar Medtronic Inc 01/07/2021 [id number] / / [id number] Swan Inc Janine Dp-1011 Duragen Plus 1x1in Patch Resorbable Suturable Cranial Dura Graft - [id number] Implanted:Qty: 1 on 03/05/2020 by Keith Mack MD at [facility] Spine Lumbar Integra Lifesciences Janine 09/06/2022 DP-1011 / / [id number] Nuvasive Creative Spine Tech [id number] Modulus [id number] 10d Xl Cage Spinal Sterile Latex Free - [id number] Implanted:Qty: 1 on 03/05/2020 by Keith Mack MD at [facility] Spine Lumbar Nuvasive Inc 01/11/2024 [id number] / / [id number] Spinal Graft Tech [id number] Davonte Putty Jar Graft 5cc Bone Demineralized Bone Matrix - [id number] - [id number] Implanted:Qty: 1 on 03/05/2020 by Keith Mack MD at [facility] Spine Lumbar Spinal Graft Tech 12/17/2022 [id number] / [id number] / Nuvasive Creative Spine Tech [id number] Modulus [id number] 10d Xl Cage Spinal Sterile Latex Free - [id number] Implanted:Qty: 1 on 03/05/2020 by Keith Mack MD at [facility] Spine Lumbar Nuvasive Inc 08/22/2024 [id number] / / [id number] K2m Llc [id number] [place] Spine Screw Set Crow - [id number] Implanted:Qty: 6 on 03/05/2020 by Keith Mack MD at [facility] Spine Lumbar [place] Spine [id number] / / K2m Llc [id number] [place] Od6.5 Mm L40 Mm Polyaxial Spine Screw Bone - [id number] Implanted:Qty: 2 on 03/05/2020 by Keith Mack MD at [facility] Spine Lumbar [place] Spine [id number] / / K2m Llc [id number] [place] Od6.5 Mm L45 Mm Polyaxial Spine Screw Bone - [id number] Implanted:Qty: 4 on 03/05/2020 by Keith Makc MD at [facility] Spine Lumbar Romel Spine [id number] / / K2m Llc [id number] Od5.5 Mm L65 Mm Contour Curved; Contour Charlie Spinal Crow - [id number] Implanted:Qty: 2 on 03/05/2020 by Keith Mack MD at [facility] Spine Lumbar [place] Spine [id number] / / Spinal Graft Tech [id number] [place] Putty Jar Graft 5cc Bone Demineralized Bone Matrix - [id number] - [id number] Implanted:Qty: 1 on 03/05/2020 by Keith Mack MD at [facility] Spine Lumbar Spinal Graft Tech 09/11/2022 [id number] / [id number] / Procedures Procedure Name Priority Date/Time Associated Diagnosis Comments COLONOSCOPY 07/26/2018 8:56 AM CDT from Last 3 Months or Most Recently Relevant to Health Maintenance Results * COLONOSCOPY (07/26/2018 8:56 AM CDT) Anatomical Region Laterality Modality Other Narrative Procedure Note Pippa Mei MD - 07/26/2018 8:56 AM CDT [facility] Endoscopy Lab Patient Name: Mariana Gutiérrez [...] by the physician, the nurse and the business technology architect in the procedure room. Mental Status Examination: [...] passedunder direct vision. The Colonoscope CF-Q180 AL [id number] introduced through the anus and advanced to [...] not recommended. Procedure Code(s): --- Professional --- 54797, Colonoscopy, flexible; with biopsy, single or multiple Diagnosis Code(s): --- Professional --- K63.89, Other specified diseases of intestine K64.8, Other hemorrhoids K92.1, Melena (includes Hematochezia) K57.30, Diverticulosis of large intestine without perforation or abscess without bleeding CPT copyright 2017 [employer]. All rights reserved. The codes documented in this report are preliminary and upon embroidery assistant reviewmay be revised to meet current compliance requirements. Electronically signed by Pippa Mei M.D. Pippa Mei M.D. 07/26/2018 9:30:08 AM Number of Addenda: 0 Note Initiated On: 07/26/2018 8:56 AM Pippa Mei MD ENDOSCOPY PROCEDURES Fi nal Result from Last 3 Months or Most Recently Relevant to Health Maintenance Insurance [facility] HMO REF [facility] HMO REF [facility] HMO REF [facility] MDCR HMO REF Advance Directives For more information, please contact: [phone] * Full Code (Latest Code Status on File) Date Activated Date Inactivated Comments 03/05/2020 4:36 PM 03/10/2020 1:46 AM Care Teams Drill Press Operator Relationship Specialty Start Date End Date Octavio Crowley MD [address] [place] [address] [place] [address] PCP - General Family Medicine 12/14/19
== END 2025-01-25 11:31 | disposition home or self-care (01) ==
PROVIDERS: PCP Internal Medicine; Visit Provider Neurological Surgery
DX: Z98.1 Arthrodesis status (principal)
CPT/HCPCS: 72100